=== PATIENT | female | born 1955 | race Caucasian/White ===

== ENCOUNTER 2016-10-05 22:37 | Inpatient (IN) | payer OTHER ==
[~2016-10-05] VITALS: Ht 165.1 cm; Wt 74.2 kg
[~2016-10-05 22:37] MED LIST: AMLO5TAB2 PO; CYCL10TA PO; LABE20TAB PO; VALS320T3 PO
[2016-10-05 22:55] LABS: ABG BASE EXCESS 4.4 (-2.0-2.0); ABG DEVICE NASAL CANN; ABG HCO3 37.9 MEQ/L (22.0-26.0); ABG PARTIAL PRESSURE CO2 113.8 mmHg (35.0-45.0); ABG PARTIAL PRESSURE O2 112.1 mmHg (75.0-100.0); ABG STANDARD HCO3 28.5 MEQ/L (22.0-26.0); ABG TOTAL CO2 41.4 MEQ/L (23.0-31.0)
[2016-10-05] MEDS ORDERED: IPRATROPIUM 0.5MG/ALBUTEROL 2.5MG INH SOL UD 3ML (DUONEB)(J7620) As Ordered ONE (23:00)
[2016-10-05] MEDS ORDERED: methylPREDNISolone INJ 125 MG/2 ML VIAL (J2930) As Ordered ONE (23:05)
[2016-10-05] MEDS ORDERED: LevoFLOXacin/DEXTROSE 750 MG/150 ML BAG (J1956) As Ordered ONE (23:06)
[2016-10-05 23:16] LABS: MEAN CORPUSCULAR HEMOGLOBIN 28.7 pg (27.0-33.0); MEAN CORPUSCULAR HGB CONC 30.6 g/dl (32.0-36.5); MEAN CORPUSCULAR VOLUME 93.6 fl (80.0-96.0); PLATELET COUNT, AUTOMATED 389 k/mm3 (150-450); WHITE BLOOD COUNT 16.6 K/mm3 (4.0-10.0)
[2016-10-05 23:20] LABS: BANDS 3 % (< 11)
[2016-10-05 23:21] LABS: HYPOCHROMASIA 2+
[2016-10-05 23:31] LABS: ANION GAP 2 MEQ/L (8-16); BLOOD UREA NITROGEN 7 MG/DL (7-18); CARBON DIOXIDE LEVEL 41 MEQ/L (21-32); CHLORIDE LEVEL 91 MEQ/L (98-107); GLOMERULAR FILTRATION RATE > 60.0 (>45); GLUCOSE, FASTING 186 MG/DL (80-110); POTASSIUM SERUM 4.1 MEQ/L (3.5-5.1); SODIUM LEVEL 134 MEQ/L (136-145)
[2016-10-05] MEDS ORDERED: MAGNESIUM SULFATE 1 GM/100 ML D5W BAG (10MG/ML) (J3475) As Ordered ONE (23:38)
[2016-10-06] VITALS (10 sets, daily range): BP systolic 105–142; BP diastolic 68–81; O2SAT 93–94
[2016-10-06] MEDS ORDERED: ALBU83IN INH (00:15)
[2016-10-06] MEDS ORDERED: AMLO10TA2 PO (00:15)
[2016-10-06] MEDS ORDERED: PLAV75TA38 PO (00:15)
[2016-10-06] MEDS ORDERED: ASPI81TA7 PO (00:15)
[2016-10-06] MEDS ORDERED: DIPH50CA29 PO (00:15)
[2016-10-06] MEDS ORDERED: ATOR1TAB21 PO (00:15)
[2016-10-06] MEDS ORDERED: METO-346 PO (00:15)
[2016-10-06] MEDS ORDERED: DULC5TAB PO (00:17)
[2016-10-06 00:24] LABS: ABG BASE EXCESS 10.5 (-2.0-2.0); ABG HCO3 43.7 MEQ/L (22.0-26.0); ABG PARTIAL PRESSURE O2 65.2 mmHg (75.0-100.0); ABG TOTAL CO2 47.3 MEQ/L (23.0-31.0)
[2016-10-06 00:26] LABS: ABG pH (ARTERIAL) 7.192 UNITS (7.350-7.450)
[2016-10-06 00:27] LABS: ABG PARTIAL PRESSURE CO2 116.5 mmHg (35.0-45.0)
[2016-10-06 01:42] LABS: ABG BASE EXCESS 7.9 (-2.0-2.0); ABG DEVICE NASAL CANN; ABG HCO3 40.3 MEQ/L (22.0-26.0); ABG PARTIAL PRESSURE CO2 105.8 mmHg (35.0-45.0); ABG PARTIAL PRESSURE O2 83.2 mmHg (75.0-100.0); ABG STANDARD HCO3 31.7 MEQ/L (22.0-26.0); ABG TOTAL CO2 43.6 MEQ/L (23.0-31.0); ABG pH (ARTERIAL) 7.199 UNITS (7.350-7.450)
[2016-10-06] MEDS ORDERED: ACETAMINOPHEN TAB 650MG DOSE (2X325MG) PO PRN (03:00)
[2016-10-06] MEDS ORDERED: ONDANSETRON 4MG/2ML VIAL (J2405) IV PRN (03:00)
[2016-10-06] MEDS ORDERED: IPRATROPIUM 0.5MG/ALBUTEROL 2.5MG INH SOL UD 3ML (DUONEB)(J7620) NEB PRN (03:00)
[2016-10-06] MEDS ORDERED: BISACODYL 5 MG TAB PO PRN (03:00)
--- NOTE | 2016-10-06 03:20 | EDDOCDS ---
Physician Documentation [facility] Name: Wilma Gaines Age: 61 yrs Sex: Female : 1955 Arrival Date: 10/05/2016 Time: 22:37 Bed 2 Private MD: Disposition: 10/06/16 02:05 Hospitalization ordered by Israel Ramirez for Inpatient Admission. Preliminary diagnosis are Acute respiratory failure with hypercapnia, Acute respiratory failure with hypoxia. - Bed requested for M ICU. - Status is Inpatient Admission. wilfred - Condition is Stable. - Problem is an acute exacerbation. - Symptoms have improved. Historical: - Allergies: No known drug Allergies; - Home Meds: 1. metoprolol tartrate 25 mg Oral tab 2. atorvastatin 20 mg oral tab 3. amlodipine 5 mg Oral tab 4. Plavix 75 mg Oral tab 5. benophen 6. aspirin 81 mg Oral tab 7. bisacodyl 5 mg Oral tab - PMHx: Hypertension; COPD; Hypercholesterolemia; - PSHx: none; - Social history: Smoking status: Patient uses tobacco products, current every day smoker. No barriers to communication noted, The patient speaks fluent Sinhala, Speaks appropriately for age. - Family history: Not pertinent. - : The pt / caregiver states he / she is not on anticoagulants. Home medication list is obtained from the patient. - Exposure Risk Screening:: None identified. Vital Signs: 10/05 22:42 BP 173 / 83 (auto/); ko2 22:43 Pulse 144 MON; Pulse Ox 96% ; ko2 22:48 BP 173 / 83; Pulse 145; Resp 26; Temp 100.4; Pulse Ox 96% on 2 lpm NC; Weight 77 kg / cln 169.76 lbs; Height 5 ft. 5 in. (165.10 cm); 22:55 BP 165 / 74 (auto/); ko2 22:55 Pulse 147 MON; Pulse Ox 92% ; ko2 22:59 Pulse 146 MON; Pulse Ox 90% ; ko2 23:00 BP 164 / 75 (auto/); ko2 23:15 BP 156 / 62 (auto/); ko2 23:16 Pulse 144 MON; Pulse Ox 94% ; ko2 23:30 BP 151 / 69 (auto/); ko2 23:30 Pulse 143 MON; Pulse Ox 93% ; ko2 10/06 00:00 BP 136 / 71 (auto/); ko2 00:01 Pulse 135 MON; Pulse Ox 94% ; ko2 00:10 BP 132 / 66 (auto/); ko2 00:10 Pulse 136 MON; Pulse Ox 91% ; ko2 00:25 BP 129 / 69 (auto/); ko2 00:26 Pulse 145 MON; Pulse Ox 92% ; ko2 00:40 BP 135 / 64 (auto/); ko2 00:41 Pulse 147 MON; Pulse Ox 95% ; ko2 00:55 BP 116 / 57 (auto/); ko2 00:56 Pulse 139 MON; Pulse Ox 95% ; ko2 01:10 BP 116 / 64 (auto/); ko2 01:11 Pulse 127 MON; Pulse Ox 96% ; ko2 01:25 BP 122 / 63 (auto/); ko2 01:25 Pulse 127 MON; Pulse Ox 92% ; ko2 01:40 BP 120 / 65 (auto/); ko2 01:40 Pulse 132 MON; Pulse Ox 95% ; ko2 01:55 BP 120 / 59 (auto/); ko2 01:56 Pulse 133 MON; Pulse Ox 94% ; ko2 02:10 BP 109 / 58 (auto/); ko2 02:10 Pulse 121 MON; Pulse Ox 93% ; ko2 02:25 BP 115 / 58 (auto/); ko2 02:26 Pulse 122 MON; Pulse Ox 92% ; ko2 02:40 BP 110 / 57 (auto/); ko2 02:41 Pulse 120 MON; Pulse Ox 93% ; ko2 02:55 BP 120 / 64 (auto/); ko2 02:55 Pulse 123 MON; Pulse Ox 93% ; ko2 10/05 22:48 Body Mass Index 28.25 (77.00 kg, 165.10 cm) cln MDM: 10/05 22:41 -Arterial Blood Gas Ordered. EDMS 22:41 Solu-MEDROL 125 mg IVP once ordered. mm11 22:41 -Blood Culture (Adults Only), peripheral from different site, or from device/port/PICC mm11 etc. if present ordered. 22:41 Manager Dialysis/Pulse Ox/q 15 min VS ordered. mm11 22:41 IV Saline Lock ordered. mm11 22:41 Oxygen at 4L/Min NC or Home dosage ordered. mm11 22:41 Rhythm Strip to chart ordered. mm11 22:43 B-Type Natiuretic Peptide Ordered. EDMS 22:43 Basic Metabolic Profile Ordered. EDMS 22:43 CBC with Diff Ordered. EDMS 22:43 Cardiac Injury Profile Ordered. EDMS 22:43 Troponin Ordered. EDMS 22:43 Lactic Acid (Sanderson tube on ice) Ordered. EDMS 22:43 -Blood Culture Ordered. EDMS 22:43 Chest, 1 View Ordered. EDMS 22:43 ECG WITH READING ER PHYS+CARDIAG ordered. EDMS 22:55 Albuterol-Ipratropium 1 neb Nebulizer every 20 minutes x3 ordered. jh6 23:00 -Arterial Blood Gas Reviewed. mm11 23:02 Ventilator settings as per RT ordered. mm11 23:03 BED REQUEST+ADM ordered. EDMS 23:03 levofloxacin 750 mg IVPB once over 90 mins ordered. mm11 23:03 -Blood Culture (Adults Only), peripheral from different site, or from device/port/PICC ml3 etc. if present complete. 23:04 BLOOD CULTURES Ordered. EDMS 23:04 BIPAP INPATIENT+RESP-VENT ordered. EDMS 23:10 Redraw ABG (put time in details section) ordered. mm11 23:16 Redraw ABG (put time in details section) complete. ml3 23:18 DIFFERENTIAL NO CHARGE Ordered. EDMS 23:18 ARTERIAL BLOOD GAS Ordered. EDMS 23:26 Magnesium Sulfate 1 grams IVPB once over 1 hrs; administer over at least 1 hour ordered.mm11 10/06 00:11 [facility] Payment Agreement was scanned into K[employer] and attached to record. jp5 00:11 Financial registration complete. jp5 00:36 -Arterial Blood Gas: \T\0130 Ordered. EDMS 00:44 B-Type Natiuretic Peptide Reviewed. mm11 00:44 Basic Metabolic Profile Reviewed. mm11 00:44 CBC with Diff Reviewed. mm11 00:44 ARTERIAL BLOOD GAS Reviewed. mm11 00:44 Cardiac Injury Profile Reviewed. mm11 00:44 Troponin Reviewed. mm11 00:44 Lactic Acid (Sanderson tube on ice) Reviewed. mm11 00:44 PLATELET ESTIMATE Reviewed. mm11 01:46 -Arterial Blood Gas: \T\0130 Reviewed. mm11 02:00 Misc Shell Trim Operator Order ordered. mm11 02:20 Misc Shell Trim Operator Order complete. ml3 02:47 RESPIRATORY PANEL Ordered. EDMS 02:57 ARTERIAL BLOOD GAS Ordered. EDMS 02:59 Admission / Observation Status ordered. EDMS 02:59 NPO DIET ordered. EDMS 02:59 SPUTUM CULTURE AND GRAM STAIN Ordered. EDMS 03:00 PORTABLE CHEST X-RAY Ordered. EDMS Administered Medications: 10/05 23:00 Drug: Albuterol-Ipratropium 1 neb [ipratropium-albuterol 0.5 mg-3 mg(2.5 mg base)/3 mL jh6 nebulization soln (1 neb)] Route: Nebulizer; 23:12 Drug: Solu-MEDROL 125 mg [Solu-Medrol 500 mg intravenous solution (125 mg)] Route: IVP; ko2 Site: right antecubital; 23:21 Drug: levofloxacin 750 mg [levofloxacin 750 mg/150 mL in 5 % dextrose intravenous ko2 piggyback] Route: IVPB; Infused Over: 90 mins; Site: right antecubital; 23:25 Drug: Albuterol-Ipratropium 1 neb [ipratropium-albuterol 0.5 mg-3 mg(2.5 mg base)/3 mL jh6 nebulization soln (1 neb)] Route: Nebulizer; 23:53 Drug: Albuterol-Ipratropium 1 neb [ipratropium-albuterol 0.5 mg-3 mg(2.5 mg base)/3 mL jh6 nebulization soln (1 neb)] Route: Nebulizer; 23:53 Drug: Magnesium Sulfate 1 grams [magnesium sulfate 1 gram/100 mL in dextrose 5 % ko2 intravenous piggyback] {Co-Signature: anni (Juaquin Suh RN).} Route: IVPB; Infused Over: 1 hrs; Site: left forearm; Signatures: Dispatcher [employer] EDMS Chacha Guillermo RN RN jan Lopresti, Mary-Elizabeth, Clinical Trial Coordinator Unit ml3 Peyton Bell RN RN [id number] Steve Ferrari DO DO mm11 Bob Oviedo jh6 Eryn Segura RN RN ko2 Ashvin Vazquez jp5 Juaquin hutton The chart was reviewed and I authenticate all verbal orders and agree with the evaluation and treatment provided.Corrections: (The following items were deleted from the chart) 10/06 02:56 02:23 RESPIRATORY PANEL ordered. EDMS EDMS Attachments: 00:11 [facility] Payment Agreement jp5 MTDD
--- NOTE | 2016-10-06 03:20 | EDDOCDS ---
Nurse's Notes [facility] Name: Wilma Gaines Age: 61 yrs Sex: Female : 1955 Arrival Date: 10/05/2016 Time: 22:37 Bed 2 Private MD: Diagnosis: Acute respiratory failure with hypercapnia;Acute respiratory failure with hypoxia Presentation: 10/05 22:42 Presenting complaint: EMS states: Increased shortness of breath over the last couple of ko2 hours. Pt was 75% on NRB when EMS arrived. Pt is now 92% after two albuterol trreatments. 23:23 Adult Sepsis Screening: The patient does not have new or worsening altered mentation. ko2 Patient has a respiratory rate of greater than or equal to 22 (1 point). Systolic blood pressure is greater than 100. Patient has a qSOFA score of 0- Negative Sepsis Screen. Suicide/Homicide risk assessment- the patient denies having any suicidal and/or homicidal ideations and does not present with any other emotional, behavioral or mental health complaints. Status: Patient is not a career placement services counselor or dependent. Transition of care: patient was not received from another setting of care. Care prior to arrival: See EMS report. Medications administered prior to arrival: Albuterol X2. 23:23 Acuity: JEFF Level 2 ko2 23:23 Method Of Arrival: Ambulance ko2 Triage Assessment: 23:00 General: Appears distressed. Pain: Denies pain. Pt Declines HIV testing. The patient is ko2 triaged at the bedside. See Assessment in Nurses Notes section of ED record. Neurological: Level of Consciousness is awake, alert. Cardiovascular: Heart tones S1 S2 present. Respiratory: Onset: The symptoms/episode began/occurred gradually. Respiratory: Airway is patent Respiratory effort is labored, Breath sounds are diminished bilaterally. Derm: Skin is pink, warm & dry. Historical: - Allergies: No known drug Allergies; - Home Meds: 1. metoprolol tartrate 25 mg Oral tab 2. atorvastatin 20 mg oral tab 3. amlodipine 5 mg Oral tab 4. Plavix 75 mg Oral tab 5. benophen 6. aspirin 81 mg Oral tab 7. bisacodyl 5 mg Oral tab - PMHx: Hypertension; COPD; Hypercholesterolemia; - PSHx: none; - Social history: Smoking status: Patient uses tobacco products, current every day smoker. No barriers to communication noted, The patient speaks fluent Taiwanese, Speaks appropriately for age. - Family history: Not pertinent. - : The pt / caregiver states he / she is not on anticoagulants. Home medication list is obtained from the patient. - Exposure Risk Screening:: None identified. Screenin:53 Screening information is obtained from the patient. Fall risk: No risks identified. ko2 Assistance ADL's: requires no assistance with activities of daily living. Abuse/DV Screen: The patient / caregiver reports he/she is: not in a situation that causes fear, pain or injury. Nutritional screening: No deficits noted. Advance Directives: Currently, there is no health care proxy. There is no active DNR order. There is no living will. There is no Power [employer]. home support is adequate. Assessment: 23:01 General: See triage assessment. ko2 23:52 General: Appears in no apparent distress, Behavior is appropriate for age, cooperative. ko2 Pain: Denies pain. Neurological: Level of Consciousness is awake, alert. Cardiovascular: Rhythm is sinus tachycardia No ectopy. Respiratory: Airway is patent Respiratory effort is even, labored. Derm: Skin is normal. 10/06 00:05 General: Appears ill, Behavior is appropriate for age, cooperative. Pain: Denies pain. ko2 Neurological: Level of Consciousness is awake, alert, lethargic. Cardiovascular: Rhythm is sinus tachycardia No ectopy. Respiratory: Airway is patent Respiratory effort is labored, Breath sounds with crackles bilaterally. Breath sounds are diminished bilaterally. Derm: Skin is normal. 00:49 General: Appears in no apparent distress, Behavior is appropriate for age, cooperative. ko2 Neurological: Level of Consciousness is awake, alert. Respiratory: Airway is patent. Derm: Skin is normal. 01:43 General: Appears in no apparent distress, Behavior is appropriate for age, cooperative. ko2 Pain: Denies pain. Neurological: Level of Consciousness is awake, alert. Respiratory: Airway is patent Respiratory effort is even, labored. Derm: Skin is normal. 03:00 General: Appears in no apparent distress, Behavior is appropriate for age, cooperative. ko2 Pain: Denies pain. Neurological: Level of Consciousness is awake, alert. Cardiovascular: Rhythm is sinus tachycardia. Respiratory: Airway is patent. Derm: Skin is normal. Vital Signs: 10/05 22:42 BP 173 / 83 (auto/); ko2 22:43 Pulse 144 MON; Pulse Ox 96% ; ko2 22:48 BP 173 / 83; Pulse 145; Resp 26; Temp 100.4; Pulse Ox 96% on 2 lpm NC; Weight 77 kg; cln Height 5 ft. 5 in. (165.10 cm); 22:55 BP 165 / 74 (auto/); ko2 22:55 Pulse 147 MON; Pulse Ox 92% ; ko2 22:59 Pulse 146 MON; Pulse Ox 90% ; ko2 23:00 BP 164 / 75 (auto/); ko2 23:15 BP 156 / 62 (auto/); ko2 23:16 Pulse 144 MON; Pulse Ox 94% ; ko2 23:30 BP 151 / 69 (auto/); ko2 23:30 Pulse 143 MON; Pulse Ox 93% ; ko2 10/06 00:00 BP 136 / 71 (auto/); ko2 00:01 Pulse 135 MON; Pulse Ox 94% ; ko2 00:10 BP 132 / 66 (auto/); ko2 00:10 Pulse 136 MON; Pulse Ox 91% ; ko2 00:25 BP 129 / 69 (auto/); ko2 00:26 Pulse 145 MON; Pulse Ox 92% ; ko2 00:40 BP 135 / 64 (auto/); ko2 00:41 Pulse 147 MON; Pulse Ox 95% ; ko2 00:55 BP 116 / 57 (auto/); ko2 00:56 Pulse 139 MON; Pulse Ox 95% ; ko2 01:10 BP 116 / 64 (auto/); ko2 01:11 Pulse 127 MON; Pulse Ox 96% ; ko2 01:25 BP 122 / 63 (auto/); ko2 01:25 Pulse 127 MON; Pulse Ox 92% ; ko2 01:40 BP 120 / 65 (auto/); ko2 01:40 Pulse 132 MON; Pulse Ox 95% ; ko2 01:55 BP 120 / 59 (auto/); ko2 01:56 Pulse 133 MON; Pulse Ox 94% ; ko2 02:10 BP 109 / 58 (auto/); ko2 02:10 Pulse 121 MON; Pulse Ox 93% ; ko2 02:25 BP 115 / 58 (auto/); ko2 02:26 Pulse 122 MON; Pulse Ox 92% ; ko2 02:40 BP 110 / 57 (auto/); ko2 02:41 Pulse 120 MON; Pulse Ox 93% ; ko2 02:55 BP 120 / 64 (auto/); ko2 02:55 Pulse 123 MON; Pulse Ox 93% ; ko2 10/05 22:48 Body Mass Index 28.25 (77.00 kg, 165.10 cm) cln Vitals: 01:44 Log In Time N/A - ambulance arrival. ko2 ED Course: 10/05 22:40 Patient visited by Dutch Wolff, Curator [employer]. ml3 22:40 rEyn Segura,RN is Primary Nurse. ml3 22:40 Steve Ferrari DO is Attending Physician. mm11 22:40 Patient visited by Steve Ferrari DO. mm11 22:40 Patient moved to Waiting ml3 22:40 Patient moved to 2 ml3 22:42 Patient visited by Steve Ferrari DO. mm11 22:42 EKG done. (by ED staff). Reviewed by Steve Ferrari DO. parish 22:48 Patient visited by Wendy Turner PCA. cln 22:48 Pt greeted and oriented to ED. Patient advised of names of staff involved in care, cln location of call thorpe, wait times and NPO status. Patient has correct armband on for positive identification. Placed in gown. Bed in low position. Call light in reach. Side rails up X 1. 22:49 -Arterial Blood Gas Sent. jh6 23:03 Inserted saline lock: 20 gauge in left antecubital area and blood collected. The ko2 patient tolerated the procedure well. 23:03 BIPAP: Inspiratory Pressure: 16, Expiratory Pressure: 6, FiO2: 40%, Full face fask. ko2 23:15 BLOOD CULTURES Sent. cln 23:24 Triage Initiated ko2 23:25 Patient visited by Steve Ferrari DO. mm11 10/06 00:08 Patient visited by Eryn Segura,JACKIE. ko2 00:11 [facility] Payment Agreement was scanned into Done In :60 Seconds and attached to record. jp5 00:26 ARTERIAL BLOOD GAS Sent. jh6 00:31 DIFFERENTIAL NO CHARGE Sent. ko2 00:32 BIPAP: Inspiratory Pressure: 20, Expiratory Pressure: 8, FiO2: 60%. ko2 01:09 Patient visited by Eryn Segura RN. ko2 01:43 -Arterial Blood Gas: \T\0130 Sent. jh6 01:44 The patient / caregiver is instructed regarding the plan of care and ED course. ko2 01:46 Patient visited by Steve Ferrari DO. mm11 02:04 Israel Ramirez DO is Hospitalizing Provider. mm11 03:06 No procedures done that require assistance. ko2 Administered Medications: 10/05 23:00 Drug: Albuterol-Ipratropium 1 neb [ipratropium-albuterol 0.5 mg-3 mg(2.5 mg base)/3 mL jh6 nebulization soln (1 neb)] Route: Nebulizer; 23:12 Drug: Solu-MEDROL 125 mg [Solu-Medrol 500 mg intravenous solution (125 mg)] Route: IVP; ko2 Site: right antecubital; 23:21 Drug: levofloxacin 750 mg [levofloxacin 750 mg/150 mL in 5 % dextrose intravenous ko2 piggyback] Route: IVPB; Infused Over: 90 mins; Site: right antecubital; 23:25 Drug: Albuterol-Ipratropium 1 neb [ipratropium-albuterol 0.5 mg-3 mg(2.5 mg base)/3 mL jh6 nebulization soln (1 neb)] Route: Nebulizer; 23:53 Drug: Albuterol-Ipratropium 1 neb [ipratropium-albuterol 0.5 mg-3 mg(2.5 mg base)/3 mL jh6 nebulization soln (1 neb)] Route: Nebulizer; 23:53 Drug: Magnesium Sulfate 1 grams [magnesium sulfate 1 gram/100 mL in dextrose 5 % ko2 intravenous piggyback] {Co-Signature: [id number] (Juaquin Suh RN).} Route: IVPB; Infused Over: 1 hrs; Site: left forearm; RT: 22:40 Respiratory: Airway is patent Respiratory effort is labored, Use of accessory muscles jh6 noted. shallow, Respiratory pattern is tachypnea Breath sounds are diminished in right upper lobe, left upper lobe, right middle lobe, left lower lobe, right lower lobe, left posterior upper lobe, right posterior upper lobe, left posterior lower lobe, right posterior middle lobe and right posterior lower lobe. 22:49 ABG's drawn from right radial artery pressure held for 5 minutes no bleeding noted jh6 pressure bandage applied specimen sent pt. tolerated well. 22:50 O2 via nasal cannula \T\ 4L/min. jh6 22:55 Respiratory: jh6 23:00 BIPAP: Inspiratory Pressure: 16, Expiratory Pressure: 6, Backup Rate: 8, FiO2: 40%, jh6 Full face fask. Respiratory: Airway is patent Respiratory effort is labored, Respiratory pattern is tachypnea Breath sounds are diminished in right upper lobe, left upper lobe, right middle lobe, left lower lobe, right lower lobe, left posterior upper lobe, right posterior upper lobe, left posterior lower lobe, right posterior middle lobe and right posterior lower lobe. 23:00 Initial Med Neb Given as ordered Patient was instructed and evaluated on procedure jh6 Patient tolerated procedure well without adverse effect. 23:12 Respiratory: Airway is patent Respiratory effort is labored, Respiratory pattern is jh6 regular tachypnea Breath sounds are diminished in right upper lobe, left upper lobe, right middle lobe, left lower lobe, right lower lobe, left posterior upper lobe, right posterior upper lobe, left posterior lower lobe, right posterior middle lobe and right posterior lower lobe. 23:25 Subsequent Med Neb Given as ordered Patient was reinforced on procedure Patient jh6 tolerated procedure well without adverse effect. Respiratory: Airway is patent Respiratory effort is labored, Respiratory pattern is regular tachypnea Breath sounds are diminished in right upper lobe, left upper lobe, right middle lobe, left lower lobe, right lower lobe, left posterior upper lobe, right posterior upper lobe, left posterior lower lobe, right posterior middle lobe and right posterior lower lobe. 23:35 Respiratory: Airway is patent Respiratory effort is even, labored, Respiratory pattern 6 is regular tachypnea Breath sounds are diminished in right upper lobe, left upper lobe, right middle lobe, left lower lobe, right lower lobe, left posterior upper lobe, right posterior upper lobe, left posterior lower lobe, right posterior middle lobe and right posterior lower lobe Breath sounds with wheezes in right upper lobe, left upper lobe and right middle lobe at expiration. 23:53 Respiratory: Airway is patent Respiratory effort is even, labored, Respiratory pattern 6 is regular tachypnea Breath sounds with crackles in right upper lobe, left upper lobe and right middle lobe Breath sounds are diminished in right upper lobe, left upper lobe, right middle lobe, left lower lobe and right lower lobe. 23:54 Subsequent Med Neb Given as ordered Patient was reinforced on procedure Patient jh6 tolerated procedure well without adverse effect. 10/06 00:04 Respiratory: Breath sounds with crackles in right upper lobe, left upper lobe and right jh6 middle lobe Breath sounds are diminished in right upper lobe, left upper lobe, right middle lobe, left lower lobe and right lower lobe. 00:20 ABG's drawn from right radial artery pressure held for 5 minutes no bleeding noted jh6 pressure bandage applied specimen sent pt. tolerated well. 00:33 BIPAP: Inspiratory Pressure: 20, Expiratory Pressure: 8, Backup Rate: 8, FiO2: 60%, 6 Full face fask. 01:38 ABG's drawn from right radial artery pressure held for 5 minutes no bleeding noted jh6 pressure bandage applied specimen sent pt. tolerated well. 02:08 BIPAP: Inspiratory Pressure: 20, Expiratory Pressure: 6, Backup Rate: 8, FiO2: 60%, jh6 Full face fask. Order Results: Lab Order: -Arterial Blood Gas; SPEC'M 10/05/16 22:46 Test: ABG pH (ARTERIAL); Value: 7.140; Range: 7.350-7.450; Abnormal: Critical Low; Units: UNITS; Status: F Test: ABG PARTIAL PRESSURE CO2; Value: 113.8; Range: 35.0-45.0; Abnormal: Above upper panic limits; Units: mmHg; Status: F Test: ABG PARTIAL PRESSURE O2; Value: 112.1; Range: 75.0-100.0; Abnormal: Above high normal; Units: mmHg; Status: F Test: ABG TOTAL CO2; Value: 41.4; Range: 23.0-31.0; Abnormal: Above high normal; Units: MEQ/L; Status: F Test: ABG HCO3; Value: 37.9; Range: 22.0-26.0; Abnormal: Above high normal; Units: MEQ/L; Status: F Test: ABG BASE EXCESS; Value: 4.4; Range: -2.0-2.0; Abnormal: Above high normal; Status: F Test: ABG STANDARD HCO3; Value: 28.5; Range: 22.0-26.0; Abnormal: Above high normal; Units: MEQ/L; Status: F Test: ABG O2 SATURATION; Value: 97.4; Range: 95.0-99.0; Units: %; Status: F Test: ABG DEVICE; Value: NASAL IKE; Status: F Lab Order: B-Type Natiuretic Peptide; SPEC'10/05/16 22:54 Test: BRAIN NATRIURETIC PEPTIDE; Value: 151; Range: <100; Abnormal: Above high normal; Units: PG/ML; Status: F Lab Order: Basic Metabolic Profile; SPEC'10/05/16 22:54 Test: GLUCOSE, FASTING; Value: 186; Range: 80-110; Abnormal: Above high normal; Units: MG/DL; Status: F Test: BLOOD UREA NITROGEN; Value: 7; Range: 7-18; Units: MG/DL; Status: F Test: CREATININE FOR GFR; Value: 0.70; Range: 0.55-1.02; Units: MG/DL; Status: F Test: GLOMERULAR FILTRATION RATE; Value: > 60.0; Range: >45; Status: F Test: SODIUM LEVEL; Value: 134; Range: 136-145; Abnormal: Below low normal; Units: MEQ/L; Status: F Test: POTASSIUM SERUM; Value: 4.1; Range: 3.5-5.1; Units: MEQ/L; Status: F Test: CHLORIDE LEVEL; Value: 91; Range: 98-107; Abnormal: Below low normal; Units: MEQ/L; Status: F Test: CARBON DIOXIDE LEVEL; Value: 41; Range: 21-32; Abnormal: Above high normal; Units: MEQ/L; Status: F Test: ANION GAP; Value: 2; Range: 8-16; Abnormal: Below low normal; Units: MEQ/L; Status: F Test: CALCIUM LEVEL; Value: 9.0; Range: 8.8-10.2; Units: MG/DL; Status: F Test Note: ; Units are mL/min/1.73 m2 Chronic Kidney Disease Staging per NKF: Stage I & II GFR >=60 Normal to Mildly Decreased Stage III GFR 30-59 Moderately Decreased Stage IV GFR 15-29 Severely Decreased Stage V GFR <15 Very Little GFR Left ESRD GFR <15 on DATA WAREHOUSE SPECIALIST Lab Order: CBC with Diff; SPEC10/05/16 22:54 Test: WHITE BLOOD COUNT; Value: 16.6; Range: 4.0-10.0; Abnormal: Above high normal; Units: K/mm3; Status: F Test: RED BLOOD COUNT; Value: 4.88; Range: 4.00-5.40; Units: M/mm3; Status: F Test: HEMOGLOBIN; Value: 14.0; Range: 12.0-16.0; Units: g/dl; Status: F Test: HEMATOCRIT; Value: 45.7; Range: 36.0-47.0; Units: %; Status: F Test: MEAN CORPUSCULAR VOLUME; Value: 93.6; Range: 80.0-96.0; Units: fl; Status: F Test: MEAN CORPUSCULAR HEMOGLOBIN; Value: 28.7; Range: 27.0-33.0; Units: pg; Status: F Test: MEAN CORPUSCULAR HGB CONC; Value: 30.6; Range: 32.0-36.5; Abnormal: Below low normal; Units: g/dl; Status: F Test: RED CELL DISTRIBUTION WIDTH; Value: 15.0; Range: 11.5-14.5; Abnormal: Above high normal; Units: %; Status: F Test: PLATELET COUNT, AUTOMATED; Value: 389; Range: 150-450; Units: k/mm3; Status: F Test: NEUTROPHILS; Value: 82; Range: 35-75; Abnormal: Above high normal; Units: %; Status: F Test: BANDS; Value: 3; Range: < 11; Units: %; Status: F Test: LYMPHOCYTES; Value: 6; Range: 16-52; Abnormal: Below low normal; Units: %; Status: F Test: MONOCYTES; Value: 9; Range: 0-8; Abnormal: Above high normal; Units: %; Status: F Test: RBC MORPHOLOGY; Value: NORMAL; Status: F Test: HYPOCHROMASIA; Value: 2+; Status: F Lab Order: Cardiac Injury Profile; SPEC'M 10/05/16 22:54 Test: CPK CREATINE PHOSPHOKINASE; Value: 28; Range: 26-192; Units: U/L; Status: F Test: CK-MB VALUE MASS; Value: 1.0; Range: 0.0-3.6; Units: NG/ML; Status: F Test: MB/CK RELATIVE INDEX; Value: 3.57; Range: < OR =4; Status: F Test Note: ; DIAGNOSIS CRITERIA MMB ng/ml Relative Index (RI) NON-AMI < or = 5 N/A [place] > 5 < or = 4 AMI > 5 > 4 Lab Order: Troponin; [facility] 10/05/16 22:54 Test: TROPONIN I; Value: < 0.02; Range: < 0.10; Units: NG/ML; Status: F Test Note: ; Troponin I Reference Interval for [facility] LOCI: 99th Percentile= 0.00-0.045 ng/ml Risk Stratification: <= 0.10 ng/ml Decreased Risk for Adverse Clinical Events. 0.10-1.50 ng/ml Increased Risk for Adverse Clinical Events. Evaluation of additional criterion and/or repeat testing in 2-6 hours is suggested to rule out myocardial damage. >= 1.50 ng/ml Indicative of Myocardial Injury. Lab Order: Lactic Acid (Sanderson tube on ice); [facility] 10/05/16 22:54 Test: LACTIC ACID SEPSIS PROTOCOL; Value: 0.6; Range: 0.4-2.0; Units: MMOL/L; Status: F Lab Order: PLATELET ESTIMATE; [facility] 10/05/16 22:54 Test: PLATELET ESTIMATE; Value: NORMAL; Range: NORMAL; Status: F Lab Order: ARTERIAL BLOOD GAS; [facility] 10/06/16 00:14 Test: ABG pH (ARTERIAL); Value: 7.192; Range: 7.350-7.450; Abnormal: Critical Low; Units: UNITS; Status: F Test: ABG PARTIAL PRESSURE CO2; Value: 116.5; Range: 35.0-45.0; Abnormal: Above upper panic limits; Units: mmHg; Status: F Test: ABG PARTIAL PRESSURE O2; Value: 65.2; Range: 75.0-100.0; Abnormal: Below low normal; Units: mmHg; Status: F Test: ABG TOTAL CO2; Value: 47.3; Range: 23.0-31.0; Abnormal: Above high normal; Units: MEQ/L; Status: F Test: ABG HCO3; Value: 43.7; Range: 22.0-26.0; Abnormal: Above high normal; Units: MEQ/L; Status: F Test: ABG BASE EXCESS; Value: 10.5; Range: -2.0-2.0; Abnormal: Above high normal; Status: F Test: ABG STANDARD HCO3; Value: 34.0; Range: 22.0-26.0; Abnormal: Above high normal; Units: MEQ/L; Status: F Test: ABG O2 SATURATION; Value: 89.4; Range: 95.0-99.0; Abnormal: Below low normal; Units: %; Status: F Lab Order: -Arterial Blood Gas: \T\0130; SPEC'M 10/06/16 01:32 Test: ABG pH (ARTERIAL); Value: 7.199; Range: 7.350-7.450; Abnormal: Critical Low; Units: UNITS; Status: F Test: ABG PARTIAL PRESSURE CO2; Value: 105.8; Range: 35.0-45.0; Abnormal: Above upper panic limits; Units: mmHg; Status: F Test: ABG PARTIAL PRESSURE O2; Value: 83.2; Range: 75.0-100.0; Units: mmHg; Status: F Test: ABG TOTAL CO2; Value: 43.6; Range: 23.0-31.0; Abnormal: Above high normal; Units: MEQ/L; Status: F Test: ABG HCO3; Value: 40.3; Range: 22.0-26.0; Abnormal: Above high normal; Units: MEQ/L; Status: F Test: ABG BASE EXCESS; Value: 7.9; Range: -2.0-2.0; Abnormal: Above high normal; Status: F Test: ABG STANDARD HCO3; Value: 31.7; Range: 22.0-26.0; Abnormal: Above high normal; Units: MEQ/L; Status: F Test: ABG O2 SATURATION; Value: 95.3; Range: 95.0-99.0; Units: %; Status: F Test: ABG DEVICE; Value: NASAL IKE; Status: F Outcome: 02:05 Decision to Hospitalize by Provider. mm11 03:05 Discharge Assessment: Patient awake, alert and oriented x 3. No cognitive and/or ko2 functional deficits noted. Patient verbalized understanding of disposition instructions. patient administered narcotics - no. The following High Risk Discharge criteria are identified: None. Admitted to ICU accompanied by nurse, accompanied by tech, via stretcher, with oxygen, on monitor, with chart. Condition: stable. No special radiology studies were completed. Admission hand-off: Report called to [facility]. Property :Personal belongings accompany Pt. 03:19 Patient left the ED. wilfred Signatures: Chacha Guillermo, RN RN wilfred New, Dutch, Curator [employer] [facility] ml3 Steve Ferrari, DO DO mm11 Leighann Shaw, INTERSTATE BUS DISPATCHER INTERSTATE BUS DISPATCHER parish Bob [place] jh6 Eryn Segura RN RN ko2 Price, Jennalee jp5 Wendy Turner, INTERSTATE BUS DISPATCHER INTERSTATE BUS DISPATCHER cln Juaquin [email or web address] Corrections: (The following items were deleted from the chart) 10/05 23:05 23:03 BIPAP: Inspiratory Pressure: 16, Expiratory Pressure: 6, Backup Rate: 8, FiO2: jh6 40%, Full face fask, jh6 23:05 23:03 Respiratory: Airway is patent Respiratory effort is labored, Respiratory pattern jh6 is tachypnea Breath sounds are diminished in right upper lobe, left upper lobe, right middle lobe, left lower lobe, right lower lobe, left posterior upper lobe, right posterior upper lobe, left posterior lower lobe, right posterior middle lobe and right posterior lower lobe jh6 MTDD
[2016-10-06 05:35] LABS: ABG HCO3 40.6 MEQ/L (22.0-26.0); ABG PARTIAL PRESSURE O2 80.7 mmHg (75.0-100.0); ABG STANDARD HCO3 32.8 MEQ/L (22.0-26.0); ABG TOTAL CO2 43.6 MEQ/L (23.0-31.0)
[2016-10-06 05:36] LABS: ABG PARTIAL PRESSURE CO2 97.1 mmHg (35.0-45.0); ABG pH (ARTERIAL) 7.239 UNITS (7.350-7.450)
--- NOTE | 2016-10-06 06:18 | ECGEPIP ---
Stationary ECG Study [facility] - ED Test Date: 2016-10-05 Pat Name: JAKE MOORE Department: Room: - Gender: F Geospatial Analyst: BorgesB: 1955 Requested By: RONAL Villegas Order Number: [id number] Reading MD: Adonis Pandey Measurements Intervals [place] Rate: 144 P: 79 SD: 164 QRS: 129 QRSD: 82 T: 60 QT: 251 QTc: 389 Interpretive Statements SINUS TACHYCARDIA POSSIBLE RIGHT VENTRICULAR HYPERTROPHY Electronically Signed On 10-06-2016 6:17:49 EST by Adonis Pandey
--- NOTE | 2016-10-06 07:06 | HPE ---
DATE OF ADMISSION: 10/06/2016 PRIMARY CARE PROVIDER: Denisa Gutierrez NP CODE STATUS: Full code. CHIEF COMPLAINT: Acute respiratory failure with shortness of breath requiring BiPAP in the emergency department. HISTORY OF PRESENT ILLNESS: Ms. Gaines is a 61-year-old female who presents to the emergency department increasing shortness of breath over the last few hours. Prior to presenting had called 911, emergency medical services (EMS) on the scene had given her albuterol treatments and when she presented to the emergency department she did have issues with continued desaturation. Arterial blood gas initially showed a pH of 7.140 with elevated pCO2 113.8, she was started on BiPAP. She was alert. She is able protect her airway. Recheck did show a pH of 7.192, pCO2 116.5, adjustments were made and her most recent shows a pH of 7.199, pCO2 of 105.8. The case was discussed with Dr. Rios over the phone. She did make some suggestions to the emergency room (ER) physician regarding further adjustments and did not feel that the patient required endotracheal intubation with mechanical ventilation, that she does seem to be improving, albeit slowly but that she could continue with noninvasive positive pressure ventilation (NIPPV) for the time being. Therefore the hospitalist was contacted for admission for this patient's chronic pulmonary obstructive disease (COPD) exacerbation with acute hypoxia with hypercarbia. She denies chest pain, denies nausea, vomiting, no abdominal pain. No back pain. The history was limited due to the patient having shortness of breath and on BiPAP, but she denied any sick contacts. PAST MEDICAL HISTORY: 1. Hypertension. 2. COPD. 3. Hyperlipidemia. PAST SURGICAL HISTORY: None. SOCIAL HISTORY: She uses tobacco which we encourage smoking cessation. No alcohol use. She is unsure of any sick contacts, no recent travel. FAMILY HISTORY: Noncontributory. ALLERGIES: NO KNOWN DRUG ALLERGIES. HOME MEDICATIONS: - metoprolol tartrate 25 mg daily - Lipitor 20 mg daily - amlodipine 5 mg daily - Plavix 75 mg daily - Banophen unknown dose - aspirin 81 mg daily - bisacodyl 5 mg daily Please note that the pharmacy will check for medicine reconciliation REVIEW OF SYSTEMS: CONSTITUTIONAL: She denies fevers, chills or rigors. No change in appetite. HEENT: No headache, lightheadedness, dizziness, blurry vision, double vision or tinnitus. PULMONARY: Increasing shortness of breath over the past few hours with wheeze, difficulty taking a deep breath and dyspnea. CARDIOVASCULAR: No paroxysmal nocturnal dyspnea (PND) , orthopnea. No substernal chest pain. No lower extremity edema. GASTROINTESTINAL (GI): No nausea, vomiting, diarrhea. Bowel movements have been regular. No hematochezia or melena. GENITOURINARY () : No dysuria, frequency or hematuria. MUSCULOSKELETAL: No bone loss or joint pain, swelling or erythema. NEUROLOGY: No paresthesias or paralysis. ENDOCRINE: Negative for diabetes. Negative for thyroid disorder. LYMPHATICS: No lumps, bumps, swelling neck, axilla or groin. No weight loss. No night sweats. HEMATOLOGY: Hematology negative for bleeding or bruising disorder. ONCOLOGY: No history of cancer. PSYCHIATRIC: No history of depression, anxiety or psychiatric abnormality. 10-point review of systems complete, pertinent positives are listed. PHYSICAL EXAMINATION: VITAL SIGNS: Temperature is 100.4, respiratory rate is 26, pulse 132 and regular, blood pressure (BP) is 120/65, SPO2 is 95% on room air. GENERAL: The patient appears to be in no acute distress. She is alert, oriented. HEENT: Unremarkable. LUNGS: Diminished bibasilar breath sounds, expiratory wheeze. HEART: Regular rate and rhythm albeit tachycardic. ABDOMEN: Abdomen is soft. EXTREMITIES: No edema. No calf tenderness. LABORATORY DATA: White count is 16.6, hemoglobin 14, platelets are 389,000. Sodium 134, potassium 4.1, chloride 91, bicarbonate 41, anion gap 2, BUN 7, creatinine 0.70, glucose is 186, lactic acid 0.6, CK 28, CK-MB 1.0, troponin is less than 0.02. Brain natriuretic peptide (BNP) is 151. Most recent arterial blood gas (ABG) shows pH 7.199, pCO2 105.8. This does appear to be trending better. Blood cultures times two are pending. IMPRESSION: Ms. Gaines is a 61-year-old female with chronic pulmonary obstructive disease (COPD) who presents to the emergency department with worsening shortness of breath, hypoxia and hypercarbia with respiratory failure currently on BiPAP and will need to be admitted to the intensive care unit (ICU) in further workup. PROBLEM LIST: 1. Acute hypoxic hypercarbic respiratory failure. 2. COPD. 3. Leukocytosis likely secondary to respiratory infection but not demonstrating any signs of sepsis currently 4. Chronic hyponatremia. 5. Hypertension. 6. Hyperlipidemia. 7. Plavix use. PLAN: The patient will be admitted to the ICU on BiPAP per Dr. Ruiz. Continue Solu-Medrol, Levaquin. Sputum culture, blood cultures, respiratory panel. Lactic acid was negative. No signs of sepsis currently. Continue with her home medications with hold parameters on blood pressure medications. Recheck labs in the morning Deep venous thrombosis (DVT) prophylaxis with Lovenox. DISPOSITION: She will be here greater than two midnights. PROGNOSIS: Currently guarded. If symptoms worsen, would repeat ABG we may need to consider intubation with mechanical ventilation. Repeat ABG within the next 2-3 hours. PROGNOSIS Currently guarded if symptoms should worsen with repeat EEG we may need to consider intubation with mechanical ventilation. Repeat EEG in the next to 3 hours.
--- NOTE | 2016-10-06 07:56 | REP ---
Clinical: Shortness of breath. Comparison: 10/05/2016. Findings: Mediastinum and cardiac silhouette are normal. Chronic interstitial changes noted. Subtle superimposed basilar atelectasis (left greater than right) and small left pleural effusion suggested. Impression: Bibasilar atelectasis (left greater than right) with small left pleural effusion. Signed by Hubert Johnson MD 10/06/2016 07:47 A
[2016-10-06] MEDS: IPRATROPIUM 0.5MG/ALBUTEROL 2.5MG INH SOL UD 3ML (DUONEB)(J7620) NEB SCH ×2 (07:59→15:34)
--- NOTE | 2016-10-06 07:59 | REP ---
Clinical: Cough. Comparison: 03/20/2016 . Findings: Chronic interstitial changes noted with bibasilar atelectasis (left greater than right) and small left pleural effusion. No pneumothorax. Mediastinum and cardiac silhouette stable. Skeletal structures intact. Impression: Bibasilar atelectasis (left greater than right) Small left pleural effusion. Signed by Hubert Johnson MD 10/06/2016 07:50 A
[2016-10-06] MEDS: ATORVASTATIN 20 MG TAB PO SCH (09:27)
[2016-10-06] MEDS: ASPIRIN 81 MG ENTERIC TAB PO SCH (09:27)
[2016-10-06] MEDS: DOCUSATE SODIUM 100 MG CAP PO SCH ×2 (09:27→21:15)
[2016-10-06] MEDS: CLOPIDOGREL 75 MG TAB PO SCH (09:28)
[2016-10-06] MEDS: amLODIPine 10 MG TAB PO SCH (09:28)
[2016-10-06] MEDS: ENOXAPARIN 40 MG/0.4 ML SYRINGE (J1650) SC SCH (09:29)
[2016-10-06] MEDS: METOPROLOL TART 12.5 MG PER 1/2 TAB PO SCH ×2 (09:29→21:15)
[2016-10-06] MEDS: methylPREDNISolone INJ 125 MG/2 ML VIAL (J2930) IV SCH ×2 (12:32→23:49)
[2016-10-06] MEDS: LevoFLOXacin IV 500 MG in APPROPRIATE DILUENT 1 EA IV SCH (23:49)
[2016-10-07] VITALS (10 sets, daily range): BP systolic 110–126; BP diastolic 62–71; O2SAT 91–98
[2016-10-07] MEDS: IPRATROPIUM 0.5MG/ALBUTEROL 2.5MG INH SOL UD 3ML (DUONEB)(J7620) NEB SCH ×4 (01:38→23:54)
[2016-10-07 05:14] LABS: MEAN CORPUSCULAR HEMOGLOBIN 29.4 pg (27.0-33.0); MEAN CORPUSCULAR HGB CONC 31.6 g/dl (32.0-36.5); MEAN CORPUSCULAR VOLUME 92.8 fl (80.0-96.0); RED CELL DISTRIBUTION WIDTH 14.7 % (11.5-14.5)
[2016-10-07 05:35] LABS: ALBUMIN 2.8 GM/DL (3.2-5.2); ANION GAP 4 MEQ/L (8-16); BLOOD UREA NITROGEN 15 MG/DL (7-18); CALCIUM LEVEL 9.5 MG/DL (8.8-10.2); CARBON DIOXIDE LEVEL 40 MEQ/L (21-32); CHLORIDE LEVEL 89 MEQ/L (98-107); GLOMERULAR FILTRATION RATE > 60.0 (>45); GLUCOSE, FASTING 183 MG/DL (80-110); PHOSPHORUS LEVEL 3.1 MG/DL (2.5-4.9); SODIUM LEVEL 133 MEQ/L (136-145)
[2016-10-07 08:06] LABS: ABG HCO3 37.3 MEQ/L (22.0-26.0); ABG PARTIAL PRESSURE O2 80.6 mmHg (75.0-100.0); ABG STANDARD HCO3 31.8 MEQ/L (22.0-26.0); ABG TOTAL CO2 39.7 MEQ/L (23.0-31.0); ABG pH (ARTERIAL) 7.303 UNITS (7.350-7.450)
[2016-10-07 08:10] LABS: ABG PARTIAL PRESSURE CO2 77.1 mmHg (35.0-45.0)
--- NOTE | 2016-10-07 08:45 | REP ---
Clinical: Shortness of breath. Comparison: 10/05/2016. Findings: Mediastinum and cardiac silhouette are stable and lung hoff demonstrate chronic interstitial changes subtle left lower lobe opacity and atelectasis may be minimally improved compared to prior examination. No pneumothorax. Skeletal structures intact. Impression: Left lower lobe opacity and atelectasis mildly improved. Signed by Hubert Johnson MD 10/07/2016 08:36 A
--- NOTE | 2016-10-07 08:57 | IPN ---
DATE: 10/06/2016 Ms. Gaines is wearing her BiPAP when I visit her in the morning. Noted over the course of day she is interactive and comfortable. PHYSICAL EXAMINATION: Temperature 98.2, pulse 105, respiratory rate 19, blood pressure 127/74, 97% on BiPAP at 60% FiO2. Intake and output notable for a positive fluid balance of 120. She is following commands, not particularly interested in my exam this morning, but is following simple commands and answering simple questions. Breathing symmetrically diminished. I:E ratio is 1:4. Heart has a regular rate and rhythm, tachycardic. ABDOMEN: Soft, doughy, nontender. LABORATORY DATA: Respiratory panel is negative. Gram-stain is pending. ASSESSMENT: This is a 61-year-old with chronic obstructive pulmonary disease (COPD), who presented with acute hypoxia and hypercapnia with respiratory failure on BiPAP. PLAN: 1. Acute hypoxic, hypercapnic respiratory failure on BiPAP. Steroids and empiric antibiotics. We will continue with aggressive pulmonary toilet. 2. Leukocytosis, most likely relate to acute bronchitis and perhaps demargination. Await culture results. Continue current antibiotics. 3. Chronic hyponatremia. 4. Hypertension. 5. Hyperlipidemia.
[2016-10-07] MEDS: METOPROLOL TART 12.5 MG PER 1/2 TAB PO SCH ×2 (09:43→21:11)
[2016-10-07] MEDS: amLODIPine 10 MG TAB PO SCH (09:43)
[2016-10-07] MEDS: ASPIRIN 81 MG ENTERIC TAB PO SCH (09:43)
[2016-10-07] MEDS: DOCUSATE SODIUM 100 MG CAP PO SCH ×2 (09:44→21:11)
[2016-10-07] MEDS: ENOXAPARIN 40 MG/0.4 ML SYRINGE (J1650) SC SCH (09:44)
[2016-10-07] MEDS: ATORVASTATIN 20 MG TAB PO SCH (09:44)
[2016-10-07] MEDS: CLOPIDOGREL 75 MG TAB PO SCH (09:44)
--- NOTE | 2016-10-07 10:08 | IPNPDOC ---
Subjective Date Seen The patient was seen on 10/07/16. Subjective Chief Complaint/HPI The patient is a 61-year-old female admitted with a reason for visit of Acute Respiratory Failure/Copd. General: Denies: Chills, Fatigue, Malaise, Night Sweats, Normal Appetite, Other Symptoms, ROS Unobtainable Constitutional: Denies: Chills, Fatigue, Fever, Lethargy, Malaise, Night Sweats , Other, Weakness, Weight Loss Eyes: Denies: Conjunctivae inflammation, Eyelid inflammation, Other, Pain, Redness, Vision change ENT: Denies: Dysphagia, Ear Pain, Epistaxis, Head Aches, Other Symptoms, Post Nasal Drip, Sinus Congestion, Sore Throat Skin: Denies: Breakdown, Bruising, Dry, Itching, Jaundice, Lesions, Nail Changes, Other, Rash Pulmonary: Reports: Cough, Denies: Dyspnea, Other Symptoms, Pleuritic Chest Pain Cardiovascular: Denies: Chest Pain, Edema, Lt Headedness, Orthopnea, Other Symptoms, Palpitations, Paroxysmal Noc. Dyspnea Gastrointestinal: Reports: Constipation, Denies: Abdominal Pain, Diarrhea, Hematochezia, Melena, Nausea, Other Symptoms, Vomiting Objective Physical Examination General Exam: Positive: Alert, Cooperative, No Acute Distress Eye Exam: Positive: Conjunctiva & lids normal, EOMI, PERRLA, Negative: Sclera icteric ENT Exam: Positive: Atraumatic, Mucous membr. moist/pink Neck Exam: Positive: Supple Chest Exam: Positive: Clear to auscultation, Diminished Heart Exam: Positive: Rate Normal, Regular Rhythm Telemetry: Positive: No significant arrhythmia Abdomen Exam: Positive: Normal bowel sounds, Soft, Negative: Tenderness Extremity Exam: Negative: Edema Assessment /Plan Problems (1) Acute respiratory failure Status: Acute Response to Treatment: Improving Discussed With: Patient Problem Specific Plan: Consult Specialist, Monitor Clinically Problem Text: Hypoxic, hypercapnic respiratory failure. ABG improved. Still requiring NIPPV intermittently yesterday and last night. Continue to wean O2. IV steroids, Levaquin, Duonebs. Add incentive spirometry, acapella. (2) COPD (chronic obstructive pulmonary disease) Status: Acute Response to Treatment: Improving Discussed With: Patient Problem Specific Plan: Monitor Clinically, Repeat Labs (3) Dyslipidemia Status: Chronic Problem Text: Continue Lipitor. (4) HTN (hypertension) Status: Chronic Problem Specific Plan: Monitor Clinically Problem Text: Continue norvasc, lopressor. (5) Hyponatremia Status: Chronic Discussed With: Patient Problem Specific Plan: Monitor Clinically, Repeat Labs Problem Text: Asymptomatic, continue to follow. Plan/VTE VTE Prophylaxis Ordered?: Yes (Lovenox) Plan Diet: Continue Current Activity: Continue Current Medications: Taper Steroids Respiratory: Wean Oxygen Diagnostics: Repeat Labs in AM Anticipated Discharge: Home VS, I&O, 24H, [facility] Vital Signs/I&O Vital Signs Date Time Temp Pulse Resp B/P Pulse Ox O2 Delivery O2 Flow Rate FiO2 10/07/16 06:00 90 20 92 Nasal Cannula 5.0 10/07/16 04:30 97.1 117/69 10/07/16 01:41 50 I&O- Last 24 Hours up to 6 AM 10/07/16 06:00 Intake Total 1000 ml Output Total 1350 ml Balance -350 ml Laboratory Data 24H LABS Laboratory Tests 2 10/07/16 04:51: Albumin 2.8L, Blood Urea Nitrogen 15#, Creatinine 0.70, Sodium Level 133L, Potassium Level 5.0#, Chloride Level 89L, Carbon Dioxide Level 40H, Anion Gap 4L , Calcium Level 9.5, Glomerular Filtration Rate > 60.0, Phosphorus Level 3.1 10/07/16 07:58: Arterial Blood pH 7.303L, Arterial Blood Partial Pressure CO2 77.1*H, Arterial Blood Partial Pressure O2 80.6, Arterial Blood Total CO2 39.7H, Arterial Blood HCO3 37.3H, Arterial Blood Base Excess 8.0H, Arterial Blood Oxygen Saturation 95.5, Blood Gas Bicarbonate Standard 31.8H CBC/BMP Laboratory Tests 10/07/16 04:51 Anion Gap 4 L, Red Blood Count 4.48, Mean Corpuscular Volume 92.8, Mean Corpuscular Hemoglobin 29.4, Mean Corpuscular Hemoglobin Concent 31.6 L, Red Cell Distribution Width 14.7 H Microbiology Microbiology 10/05/16 Blood Culture - Preliminary, Resulted No growth after 24 hours . All specim... 10/05/16 Blood Culture - Preliminary, Resulted No growth after 24 hours . All specim... 10/06/16 Gram Stain - Final, Resulted 10/06/16 Sputum Culture, Resulted Pending 10/06/16 Respiratory Virus Panel (PCR) ([facility]) - Final, Complete LALDIN,CHRISTIANA S. MD Oct 07, 2016 08:22
--- NOTE | 2016-10-07 13:12 | CCN ---
DATE: 10/07/2016 ATTENDING PHYSICIAN: Dr. Cruz CHIEF COMPLAINT: Progressive dyspnea. HISTORY OF PRESENT ILLNESS: Ms. Gaines is a 61-year-old female with past medical history significant for chronic obstructive pulmonary disease (COPD), chronic hypoxic respiratory failure requiring 2 liters nasal cannula, hypertension, hyperlipidemia, and chronic antiplatelet therapies who presented to the emergency department on October 06 with progressive dyspnea. She was found to be hypoxemic at that time. Initial arterial blood gas (ABG) showed pH of 7.14, pCO2 of 113.8, pO2 of 112 on nasal cannula. She was initiated on noninvasive positive pressure ventilation at that time and was admitted into the intensive care unit (ICU) for closer monitoring. Early this morning, she was taken off of noninvasive ventilation. Thereafter, her ABG was repeated, which showed a pH of 7.3, pCO2 of 77, pO2 of 81. Given her improvement in her blood gas, she remained off of noninvasive ventilation. This morning, patient reports that she is feeling better. Breathing is almost back to baseline. She does have a cough productive of green sputum, which is improved. She denies any chest pain or pressure. No wheezing. No headache, lightheadedness, or dizziness. No nausea, vomiting, abdominal pain, or diarrhea. She continues to be on 5 liters of nasal cannula with a baseline of 2 liters. She has been doing well off of noninvasive ventilation and will not need to be placed back it. Pulmonary consultation was requested in case the patient needs more aggressive therapy. PAST MEDICAL HISTORY 1. COPD. 2. Chronic hypoxic respiratory failure, requiring 2 liters nasal cannula all day. 3. Hypertension. 4. Hyperlipidemia. PAST SURGICAL HISTORY: None. ALLERGIES: No known drug allergies. SOCIAL HISTORY: The patient reports that she is a former smoker, quit in March 2016. Occasional alcohol. No illicit drugs. PHYSICAL EXAMINATION: VITAL SIGNS: Temperature 97.6, pulse 82, respiratory rate 22, blood pressure 124/67, pulse oximetry 95% on 5 liters nasal cannula. GENERAL: The patient is alert and oriented times three in no acute distress. HEENT: Normocephalic, atraumatic. Extraocular muscles are intact. Pupils are equally round and reactive to light. No scleral icterus. Moist mucosa. NECK: Supple. No cervical lymphadenopathy. No thyromegaly appreciated. HEART: Normal S1, S2. Regular rate and rhythm. No significant murmur appreciated. LUNGS: Diminished breath sounds bilaterally with bibasilar crackles. ABDOMEN: Soft, nontender, nondistended. Bowel sounds are present. EXTREMITIES: Trace right lower extremity edema. No cyanosis. Positive pedal pulses bilaterally. SKIN: Warm and dry. No rashes noted. NEUROLOGIC: No focal deficits. Cranial nerves: II-XII are grossly intact. Motor and sensation intact. LABORATORY DATA: WBC 14.0, hemoglobin 13.1, hematocrit 41.6, platelet count 380, MCV 92.8, MCH 29.4. Sodium 133, potassium 5.0, chloride 89, carbon dioxide 40, anion gap 4, BUN 15, creatinine 0.7, GFR greater than 60, fasting glucose 183, lactic acid 0.6 on October 05, calcium 9.5, phosphorus 3.1, albumin 2.8. Microbiology: Blood culture shows no growth after 24 hours. Respiratory virus panel was negative by PCR. Sputum culture pending. IMAGING STUDIES: Chest x-ray on admission was reviewed, which showed normal to mildly increased pulmonary vascular shadow, mildly flattened diaphragm, increased opacity of the left lower lobe. Chest x-ray done this morning was once again reviewed, which shows similar findings except for improved opacity in the left lower lobe. ASSESSMENT: 1. Acute hypoxic and hypercapnic respiratory failure. 2. Chronic obstructive pulmonary disease. 3. Hypertension. 4. Hyperlipidemia. PLAN: Her respiratory status has already improved, and she is no longer requiring noninvasive positive pressure ventilation. She does not appear that she will be requiring this any further, but we will continue to monitor her closely in case she decompensates. She is currently on supplemental oxygen, titrate to oxygenation of 88-92%. She is currently on Solu-Medrol as well as Levaquin for COPD exacerbation. Continue with bronchodilator therapy scheduled and as needed. She does have a leukocytosis, which has improved. Await sputum culture results. Blood cultures have shown no growth thus far. The respiratory panel was negative. Her vital signs are currently stable. No further recommendations at this time. Thank you for allowing us to participate in the care of Ms. Gaines. Please call if you have any further questions. My preceptor for this patient encounter was Dr. Scotty Medina. The preceptor was physically present in the building during the encounter and was fully available as needed. All aspects of the patient interview, examination, medical decision making process, and medical care plan development were reviewed and approved by the preceptor. The preceptor is aware and concurs with the plan as stated in the body of this note and will attest to such by his/her co-signature. [id number]
[2016-10-07] MEDS: methylPREDNISolone INJ 125 MG/2 ML VIAL (J2930) IV SCH (13:46)
[2016-10-07] MEDS ORDERED: SLF 3 ML SYR IV PRN (15:30)
[2016-10-07] MEDS: SLF 3 ML SYR IV SCH (21:11)
[2016-10-08] VITALS (7 sets, daily range): BP systolic 130–145; BP diastolic 76–79
[2016-10-08] MEDS: LevoFLOXacin IV 500 MG in APPROPRIATE DILUENT 1 EA IV SCH (00:18)
[2016-10-08] MEDS: methylPREDNISolone INJ 125 MG/2 ML VIAL (J2930) IV SCH ×2 (01:28→14:04)
--- NOTE | 2016-10-08 04:20 | EDDOCDS ---
Nurse's Notes [facility] Name: Wilma Gaines Age: 61 yrs Sex: Female : 1955 Arrival Date: 10/05/2016 Time: 22:37 Bed 2 Private MD: Diagnosis: Acute respiratory failure with hypercapnia;Acute respiratory failure with hypoxia Presentation: 10/05 22:42 Presenting complaint: EMS states: Increased shortness of breath over the last couple of ko2 hours. Pt was 75% on NRB when EMS arrived. Pt is now 92% after two albuterol trreatments. 23:23 Adult Sepsis Screening: The patient does not have new or worsening altered mentation. ko2 Patient has a respiratory rate of greater than or equal to 22 (1 point). Systolic blood pressure is greater than 100. Patient has a qSOFA score of 0- Negative Sepsis Screen. Suicide/Homicide risk assessment- the patient denies having any suicidal and/or homicidal ideations and does not present with any other emotional, behavioral or mental health complaints. Status: Patient is not a service order clerk or dependent. Transition of care: patient was not received from another setting of care. Care prior to arrival: See EMS report. Medications administered prior to arrival: Albuterol X2. 23:23 Acuity: JEFF Level 2 ko2 23:23 Method Of Arrival: Ambulance ko2 Triage Assessment: 23:00 General: Appears distressed. Pain: Denies pain. Pt Declines HIV testing. The patient is ko2 triaged at the bedside. See Assessment in Nurses Notes section of ED record. Neurological: Level of Consciousness is awake, alert. Cardiovascular: Heart tones S1 S2 present. Respiratory: Onset: The symptoms/episode began/occurred gradually. Respiratory: Airway is patent Respiratory effort is labored, Breath sounds are diminished bilaterally. Derm: Skin is pink, warm & dry. Historical: - Allergies: No known drug Allergies; - Home Meds: 1. metoprolol tartrate 25 mg Oral tab 2. atorvastatin 20 mg oral tab 3. amlodipine 5 mg Oral tab 4. Plavix 75 mg Oral tab 5. benophen 6. aspirin 81 mg Oral tab 7. bisacodyl 5 mg Oral tab - PMHx: Hypertension; COPD; Hypercholesterolemia; - PSHx: none; - Social history: Smoking status: Patient uses tobacco products, current every day smoker. No barriers to communication noted, The patient speaks fluent [place], Speaks appropriately for age. - Family history: Not pertinent. - : The pt / caregiver states he / she is not on anticoagulants. Home medication list is obtained from the patient. - Exposure Risk Screening:: None identified. Screenin:53 Screening information is obtained from the patient. Fall risk: No risks identified. ko2 Assistance ADL's: requires no assistance with activities of daily living. Abuse/DV Screen: The patient / caregiver reports he/she is: not in a situation that causes fear, pain or injury. Nutritional screening: No deficits noted. Advance Directives: Currently, there is no health care proxy. There is no active DNR order. There is no living will. There is no Power of Ingot Buggy Operator. home support is adequate. Assessment: 23:01 General: See triage assessment. ko2 23:52 General: Appears in no apparent distress, Behavior is appropriate for age, cooperative. ko2 Pain: Denies pain. Neurological: Level of Consciousness is awake, alert. Cardiovascular: Rhythm is sinus tachycardia No ectopy. Respiratory: Airway is patent Respiratory effort is even, labored. Derm: Skin is normal. 10/06 00:05 General: Appears ill, Behavior is appropriate for age, cooperative. Pain: Denies pain. ko2 Neurological: Level of Consciousness is awake, alert, lethargic. Cardiovascular: Rhythm is sinus tachycardia No ectopy. Respiratory: Airway is patent Respiratory effort is labored, Breath sounds with crackles bilaterally. Breath sounds are diminished bilaterally. Derm: Skin is normal. 00:49 General: Appears in no apparent distress, Behavior is appropriate for age, cooperative. ko2 Neurological: Level of Consciousness is awake, alert. Respiratory: Airway is patent. Derm: Skin is normal. 01:43 General: Appears in no apparent distress, Behavior is appropriate for age, cooperative. ko2 Pain: Denies pain. Neurological: Level of Consciousness is awake, alert. Respiratory: Airway is patent Respiratory effort is even, labored. Derm: Skin is normal. 03:00 General: Appears in no apparent distress, Behavior is appropriate for age, cooperative. ko2 Pain: Denies pain. Neurological: Level of Consciousness is awake, alert. Cardiovascular: Rhythm is sinus tachycardia. Respiratory: Airway is patent. Derm: Skin is normal. Vital Signs: 10/05 22:42 BP 173 / 83 (auto/); ko2 22:43 Pulse 144 MON; Pulse Ox 96% ; ko2 22:48 BP 173 / 83; Pulse 145; Resp 26; Temp 100.4; Pulse Ox 96% on 2 lpm NC; Weight 77 kg; cln Height 5 ft. 5 in. (165.10 cm); 22:55 BP 165 / 74 (auto/); ko2 22:55 Pulse 147 MON; Pulse Ox 92% ; ko2 22:59 Pulse 146 MON; Pulse Ox 90% ; ko2 23:00 BP 164 / 75 (auto/); ko2 23:15 BP 156 / 62 (auto/); ko2 23:16 Pulse 144 MON; Pulse Ox 94% ; ko2 23:30 BP 151 / 69 (auto/); ko2 23:30 Pulse 143 MON; Pulse Ox 93% ; ko2 10/06 00:00 BP 136 / 71 (auto/); ko2 00:01 Pulse 135 MON; Pulse Ox 94% ; ko2 00:10 BP 132 / 66 (auto/); ko2 00:10 Pulse 136 MON; Pulse Ox 91% ; ko2 00:25 BP 129 / 69 (auto/); ko2 00:26 Pulse 145 MON; Pulse Ox 92% ; ko2 00:40 BP 135 / 64 (auto/); ko2 00:41 Pulse 147 MON; Pulse Ox 95% ; ko2 00:55 BP 116 / 57 (auto/); ko2 00:56 Pulse 139 MON; Pulse Ox 95% ; ko2 01:10 BP 116 / 64 (auto/); ko2 01:11 Pulse 127 MON; Pulse Ox 96% ; ko2 01:25 BP 122 / 63 (auto/); ko2 01:25 Pulse 127 MON; Pulse Ox 92% ; ko2 01:40 BP 120 / 65 (auto/); ko2 01:40 Pulse 132 MON; Pulse Ox 95% ; ko2 01:55 BP 120 / 59 (auto/); ko2 01:56 Pulse 133 MON; Pulse Ox 94% ; ko2 02:10 BP 109 / 58 (auto/); ko2 02:10 Pulse 121 MON; Pulse Ox 93% ; ko2 02:25 BP 115 / 58 (auto/); ko2 02:26 Pulse 122 MON; Pulse Ox 92% ; ko2 02:40 BP 110 / 57 (auto/); ko2 02:41 Pulse 120 MON; Pulse Ox 93% ; ko2 02:55 BP 120 / 64 (auto/); ko2 02:55 Pulse 123 MON; Pulse Ox 93% ; ko2 10/05 22:48 Body Mass Index 28.25 (77.00 kg, 165.10 cm) cln Vitals: 01:44 Log In Time N/A - ambulance arrival. ko2 ED Course: 10/05 22:40 Patient visited by Dutch Wolff, Chainstitch Hemmer. ml3 22:40 Eryn Segura,RN is Primary Nurse. ml3 22:40 Steve Ferrari DO is Attending Physician. mm11 22:40 Patient visited by Steve Ferrari DO. mm11 22:40 Patient moved to Waiting ml3 22:40 Patient moved to 2 ml3 22:42 Patient visited by Steve Ferrari DO. mm11 22:42 EKG done. (by ED staff). Reviewed by Steve Ferrari DO. parish 22:48 Patient visited by Wendy Turner PCA. cln 22:48 Pt greeted and oriented to ED. Patient advised of names of staff involved in care, cln location of call thorpe, wait times and NPO status. Patient has correct armband on for positive identification. Placed in gown. Bed in low position. Call light in reach. Side rails up X 1. 22:49 -Arterial Blood Gas Sent. jh6 23:03 Inserted saline lock: 20 gauge in left antecubital area and blood collected. The ko2 patient tolerated the procedure well. 23:03 BIPAP: Inspiratory Pressure: 16, Expiratory Pressure: 6, FiO2: 40%, Full face fask. ko2 23:15 BLOOD CULTURES Sent. cln 23:24 Triage Initiated ko2 23:25 Patient visited by Steve Ferrari DO. mm11 10/06 00:08 Patient visited by Eryn Segura,JACKIE. ko2 00:11 [facility] Payment Agreement was scanned into [employer] and attached to record. jp5 00:26 ARTERIAL BLOOD GAS Sent. jh6 00:31 DIFFERENTIAL NO CHARGE Sent. ko2 00:32 BIPAP: Inspiratory Pressure: 20, Expiratory Pressure: 8, FiO2: 60%. ko2 01:09 Patient visited by Eryn Segura RN. ko2 01:43 -Arterial Blood Gas: \T\0130 Sent. jh6 01:44 The patient / caregiver is instructed regarding the plan of care and ED course. ko2 01:46 Patient visited by Steve Ferrari DO. mm11 02:04 Israel Ramirez DO is Hospitalizing Provider. mm11 03:06 No procedures done that require assistance. ko2 11:46 T-Sheet-- Draft Copy was scanned into [employer] and attached to record. gb Administered Medications: 10/05 23:00 Drug: Albuterol-Ipratropium 1 neb [ipratropium-albuterol 0.5 mg-3 mg(2.5 mg base)/3 mL jh6 nebulization soln (1 neb)] Route: Nebulizer; 23:12 Drug: Solu-MEDROL 125 mg [Solu-Medrol 500 mg intravenous solution (125 mg)] Route: IVP; ko2 Site: right antecubital; 23:21 Drug: levofloxacin 750 mg [levofloxacin 750 mg/150 mL in 5 % dextrose intravenous ko2 piggyback] Route: IVPB; Infused Over: 90 mins; Site: right antecubital; 23:25 Drug: Albuterol-Ipratropium 1 neb [ipratropium-albuterol 0.5 mg-3 mg(2.5 mg base)/3 mL jh6 nebulization soln (1 neb)] Route: Nebulizer; 23:53 Drug: Albuterol-Ipratropium 1 neb [ipratropium-albuterol 0.5 mg-3 mg(2.5 mg base)/3 mL jh6 nebulization soln (1 neb)] Route: Nebulizer; 23:53 Drug: Magnesium Sulfate 1 grams [magnesium sulfate 1 gram/100 mL in dextrose 5 % ko2 intravenous piggyback] {Co-Signature: mb9 (Juaquin Suh RN).} Route: IVPB; Infused Over: 1 hrs; Site: left forearm; RT: 22:40 Respiratory: Airway is patent Respiratory effort is labored, Use of accessory muscles jh6 noted. shallow, Respiratory pattern is tachypnea Breath sounds are diminished in right upper lobe, left upper lobe, right middle lobe, left lower lobe, right lower lobe, left posterior upper lobe, right posterior upper lobe, left posterior lower lobe, right posterior middle lobe and right posterior lower lobe. 22:49 ABG's drawn from right radial artery pressure held for 5 minutes no bleeding noted jh6 pressure bandage applied specimen sent pt. tolerated well. 22:50 O2 via nasal cannula \T\ 4L/min. jh6 22:55 Respiratory: 6 23:00 BIPAP: Inspiratory Pressure: 16, Expiratory Pressure: 6, Backup Rate: 8, FiO2: 40%, jh6 Full face fask. Respiratory: Airway is patent Respiratory effort is labored, Respiratory pattern is tachypnea Breath sounds are diminished in right upper lobe, left upper lobe, right middle lobe, left lower lobe, right lower lobe, left posterior upper lobe, right posterior upper lobe, left posterior lower lobe, right posterior middle lobe and right posterior lower lobe. 23:00 Initial Med Neb Given as ordered Patient was instructed and evaluated on procedure jh6 Patient tolerated procedure well without adverse effect. 23:12 Respiratory: Airway is patent Respiratory effort is labored, Respiratory pattern is 6 regular tachypnea Breath sounds are diminished in right upper lobe, left upper lobe, right middle lobe, left lower lobe, right lower lobe, left posterior upper lobe, right posterior upper lobe, left posterior lower lobe, right posterior middle lobe and right posterior lower lobe. 23:25 Subsequent Med Neb Given as ordered Patient was reinforced on procedure Patient jh6 tolerated procedure well without adverse effect. Respiratory: Airway is patent Respiratory effort is labored, Respiratory pattern is regular tachypnea Breath sounds are diminished in right upper lobe, left upper lobe, right middle lobe, left lower lobe, right lower lobe, left posterior upper lobe, right posterior upper lobe, left posterior lower lobe, right posterior middle lobe and right posterior lower lobe. 23:35 Respiratory: Airway is patent Respiratory effort is even, labored, Respiratory pattern 6 is regular tachypnea Breath sounds are diminished in right upper lobe, left upper lobe, right middle lobe, left lower lobe, right lower lobe, left posterior upper lobe, right posterior upper lobe, left posterior lower lobe, right posterior middle lobe and right posterior lower lobe Breath sounds with wheezes in right upper lobe, left upper lobe and right middle lobe at expiration. 23:53 Respiratory: Airway is patent Respiratory effort is even, labored, Respiratory pattern 6 is regular tachypnea Breath sounds with crackles in right upper lobe, left upper lobe and right middle lobe Breath sounds are diminished in right upper lobe, left upper lobe, right middle lobe, left lower lobe and right lower lobe. 23:54 Subsequent Med Neb Given as ordered Patient was reinforced on procedure Patient jh6 tolerated procedure well without adverse effect. 10/06 00:04 Respiratory: Breath sounds with crackles in right upper lobe, left upper lobe and right jh6 middle lobe Breath sounds are diminished in right upper lobe, left upper lobe, right middle lobe, left lower lobe and right lower lobe. 00:20 ABG's drawn from right radial artery pressure held for 5 minutes no bleeding noted jh6 pressure bandage applied specimen sent pt. tolerated well. 00:33 BIPAP: Inspiratory Pressure: 20, Expiratory Pressure: 8, Backup Rate: 8, FiO2: 60%, [facility] Full face fask. 01:38 ABG's drawn from right radial artery pressure held for 5 minutes no bleeding noted jh6 pressure bandage applied specimen sent pt. tolerated well. 02:08 BIPAP: Inspiratory Pressure: 20, Expiratory Pressure: 6, Backup Rate: 8, FiO2: 60%, [facility] Full face fask. Order Results: Lab Order: -Arterial Blood Gas; SPEC'M 10/05/16 22:46 Test: ABG pH (ARTERIAL); Value: 7.140; Range: 7.350-7.450; Abnormal: Critical Low; Units: UNITS; Status: F Test: ABG PARTIAL PRESSURE CO2; Value: 113.8; Range: 35.0-45.0; Abnormal: Above upper panic limits; Units: mmHg; Status: F Test: ABG PARTIAL PRESSURE O2; Value: 112.1; Range: 75.0-100.0; Abnormal: Above high normal; Units: mmHg; Status: F Test: ABG TOTAL CO2; Value: 41.4; Range: 23.0-31.0; Abnormal: Above high normal; Units: MEQ/L; Status: F Test: ABG HCO3; Value: 37.9; Range: 22.0-26.0; Abnormal: Above high normal; Units: MEQ/L; Status: F Test: ABG BASE EXCESS; Value: 4.4; Range: -2.0-2.0; Abnormal: Above high normal; Status: F Test: ABG STANDARD HCO3; Value: 28.5; Range: 22.0-26.0; Abnormal: Above high normal; Units: MEQ/L; Status: F Test: ABG O2 SATURATION; Value: 97.4; Range: 95.0-99.0; Units: %; Status: F Test: ABG DEVICE; Value: NASAL IKE; Status: F Lab Order: B-Type Natiuretic Peptide; SPEC'M 10/05/16 22:54 Test: BRAIN NATRIURETIC PEPTIDE; Value: 151; Range: <100; Abnormal: Above high normal; Units: PG/ML; Status: F Lab Order: Basic Metabolic Profile; SPEC'M 10/05/16 22:54 Test: GLUCOSE, FASTING; Value: 186; Range: 80-110; Abnormal: Above high normal; Units: MG/DL; Status: F Test: BLOOD UREA NITROGEN; Value: 7; Range: 7-18; Units: MG/DL; Status: F Test: CREATININE FOR GFR; Value: 0.70; Range: 0.55-1.02; Units: MG/DL; Status: F Test: GLOMERULAR FILTRATION RATE; Value: > 60.0; Range: >45; Status: F Test: SODIUM LEVEL; Value: 134; Range: 136-145; Abnormal: Below low normal; Units: MEQ/L; Status: F Test: POTASSIUM SERUM; Value: 4.1; Range: 3.5-5.1; Units: MEQ/L; Status: F Test: CHLORIDE LEVEL; Value: 91; Range: 98-107; Abnormal: Below low normal; Units: MEQ/L; Status: F Test: CARBON DIOXIDE LEVEL; Value: 41; Range: 21-32; Abnormal: Above high normal; Units: MEQ/L; Status: F Test: ANION GAP; Value: 2; Range: 8-16; Abnormal: Below low normal; Units: MEQ/L; Status: F Test: CALCIUM LEVEL; Value: 9.0; Range: 8.8-10.2; Units: MG/DL; Status: F Test Note: ; Units are mL/min/1.73 m2 Chronic Kidney Disease Staging per NKF: Stage I & II GFR >=60 Normal to Mildly Decreased Stage III GFR 30-59 Moderately Decreased Stage IV GFR 15-29 Severely Decreased Stage V GFR <15 Very Little GFR Left ESRD GFR <15 on CAN PUSHER Lab Order: CBC with Diff; SPEC'M 10/05/16 22:54 Test: WHITE BLOOD COUNT; Value: 16.6; Range: 4.0-10.0; Abnormal: Above high normal; Units: K/mm3; Status: F Test: RED BLOOD COUNT; Value: 4.88; Range: 4.00-5.40; Units: M/mm3; Status: F Test: HEMOGLOBIN; Value: 14.0; Range: 12.0-16.0; Units: g/dl; Status: F Test: HEMATOCRIT; Value: 45.7; Range: 36.0-47.0; Units: %; Status: F Test: MEAN CORPUSCULAR VOLUME; Value: 93.6; Range: 80.0-96.0; Units: fl; Status: F Test: MEAN CORPUSCULAR HEMOGLOBIN; Value: 28.7; Range: 27.0-33.0; Units: pg; Status: F Test: MEAN CORPUSCULAR HGB CONC; Value: 30.6; Range: 32.0-36.5; Abnormal: Below low normal; Units: g/dl; Status: F Test: RED CELL DISTRIBUTION WIDTH; Value: 15.0; Range: 11.5-14.5; Abnormal: Above high normal; Units: %; Status: F Test: PLATELET COUNT, AUTOMATED; Value: 389; Range: 150-450; Units: k/mm3; Status: F Test: NEUTROPHILS; Value: 82; Range: 35-75; Abnormal: Above high normal; Units: %; Status: F Test: BANDS; Value: 3; Range: < 11; Units: %; Status: F Test: LYMPHOCYTES; Value: 6; Range: 16-52; Abnormal: Below low normal; Units: %; Status: F Test: MONOCYTES; Value: 9; Range: 0-8; Abnormal: Above high normal; Units: %; Status: F Test: RBC MORPHOLOGY; Value: NORMAL; Status: F Test: HYPOCHROMASIA; Value: 2+; Status: F Lab Order: Cardiac Injury Profile; [facility] 10/05/16 22:54 Test: CPK CREATINE PHOSPHOKINASE; Value: 28; Range: 26-192; Units: U/L; Status: F Test: CK-MB VALUE MASS; Value: 1.0; Range: 0.0-3.6; Units: NG/ML; Status: F Test: MB/CK RELATIVE INDEX; Value: 3.57; Range: < OR =4; Status: F Test Note: ; DIAGNOSIS CRITERIA MMB ng/ml Relative Index (RI) NON-AMI < or = 5 N/A [place] > 5 < or = 4 AMI > 5 > 4 Lab Order: Troponin; [facility] 10/05/16 22:54 Test: TROPONIN I; Value: < 0.02; Range: < 0.10; Units: NG/ML; Status: F Test Note: ; Troponin I Reference Interval for [employer] LOCI: 99th Percentile= 0.00-0.045 ng/ml Risk Stratification: <= 0.10 ng/ml Decreased Risk for Adverse Clinical Events. 0.10-1.50 ng/ml Increased Risk for Adverse Clinical Events. Evaluation of additional criterion and/or repeat testing in 2-6 hours is suggested to rule out myocardial damage. >= 1.50 ng/ml Indicative of Myocardial Injury. Lab Order: Lactic Acid (Sanderson tube on ice); [facility] 10/05/16 22:54 Test: LACTIC ACID SEPSIS PROTOCOL; Value: 0.6; Range: 0.4-2.0; Units: MMOL/L; Status: F Lab Order: PLATELET ESTIMATE; [facility] 10/05/16 22:54 Test: PLATELET ESTIMATE; Value: NORMAL; Range: NORMAL; Status: F Lab Order: ARTERIAL BLOOD GAS; [facility] 10/06/16 00:14 Test: ABG pH (ARTERIAL); Value: 7.192; Range: 7.350-7.450; Abnormal: Critical Low; Units: UNITS; Status: F Test: ABG PARTIAL PRESSURE CO2; Value: 116.5; Range: 35.0-45.0; Abnormal: Above upper panic limits; Units: mmHg; Status: F Test: ABG PARTIAL PRESSURE O2; Value: 65.2; Range: 75.0-100.0; Abnormal: Below low normal; Units: mmHg; Status: F Test: ABG TOTAL CO2; Value: 47.3; Range: 23.0-31.0; Abnormal: Above high normal; Units: MEQ/L; Status: F Test: ABG HCO3; Value: 43.7; Range: 22.0-26.0; Abnormal: Above high normal; Units: MEQ/L; Status: F Test: ABG BASE EXCESS; Value: 10.5; Range: -2.0-2.0; Abnormal: Above high normal; Status: F Test: ABG STANDARD HCO3; Value: 34.0; Range: 22.0-26.0; Abnormal: Above high normal; Units: MEQ/L; Status: F Test: ABG O2 SATURATION; Value: 89.4; Range: 95.0-99.0; Abnormal: Below low normal; Units: %; Status: F Lab Order: -Arterial Blood Gas: \T\0130; SPEC'M 10/06/16 01:32 Test: ABG pH (ARTERIAL); Value: 7.199; Range: 7.350-7.450; Abnormal: Critical Low; Units: UNITS; Status: F Test: ABG PARTIAL PRESSURE CO2; Value: 105.8; Range: 35.0-45.0; Abnormal: Above upper panic limits; Units: mmHg; Status: F Test: ABG PARTIAL PRESSURE O2; Value: 83.2; Range: 75.0-100.0; Units: mmHg; Status: F Test: ABG TOTAL CO2; Value: 43.6; Range: 23.0-31.0; Abnormal: Above high normal; Units: MEQ/L; Status: F Test: ABG HCO3; Value: 40.3; Range: 22.0-26.0; Abnormal: Above high normal; Units: MEQ/L; Status: F Test: ABG BASE EXCESS; Value: 7.9; Range: -2.0-2.0; Abnormal: Above high normal; Status: F Test: ABG STANDARD HCO3; Value: 31.7; Range: 22.0-26.0; Abnormal: Above high normal; Units: MEQ/L; Status: F Test: ABG O2 SATURATION; Value: 95.3; Range: 95.0-99.0; Units: %; Status: F Test: ABG DEVICE; Value: NASAL IKE; Status: F Outcome: 02:05 Decision to Hospitalize by Provider. mm11 03:05 Discharge Assessment: Patient awake, alert and oriented x 3. No cognitive and/or ko2 functional deficits noted. Patient verbalized understanding of disposition instructions. patient administered narcotics - no. The following High Risk Discharge criteria are identified: None. Admitted to ICU accompanied by nurse, accompanied by tech, via stretcher, with oxygen, on monitor, with chart. Condition: stable. No special radiology studies were completed. Admission hand-off: Report called to [facility]. Property :Personal belongings accompany Pt. 03:19 Patient left the ED. wilfred Signatures: Chacha Guillermo RN RN wilfred Jose Elias, Angi, Reg Reg gb New, SabrinaAlondra, Chainstitch Hemmer Unit ml3 Steve Ferrari, DO DO mm11 Leighann Shaw, PRINCIPAL MILITARY ANALYST PRINCIPAL MILITARY ANALYST Bob Regan jh6 Eryn Segura RN RN ko2 Ashvin Vazquez jp5 Wendy Turner, PRINCIPAL MILITARY ANALYST PRINCIPAL MILITARY ANALYST cln Juaquin Suh RN mb9 Corrections: (The following items were deleted from the chart) 10/05 23:05 23:03 BIPAP: Inspiratory Pressure: 16, Expiratory Pressure: 6, Backup Rate: 8, FiO2: jh6 40%, Full face fask, jh6 23:05 23:03 Respiratory: Airway is patent Respiratory effort is labored, Respiratory pattern jh6 is tachypnea Breath sounds are diminished in right upper lobe, left upper lobe, right middle lobe, left lower lobe, right lower lobe, left posterior upper lobe, right posterior upper lobe, left posterior lower lobe, right posterior middle lobe and right posterior lower lobe jh6 Chart Complete MTDD
--- NOTE | 2016-10-08 04:20 | EDDOCDS ---
Physician Documentation [facility] Name: Wilma Gaines Age: 61 yrs Sex: Female : 1955 Arrival Date: 10/05/2016 Time: 22:37 Bed 2 Private MD: Disposition: 10/06/16 02:05 Hospitalization ordered by Israel Ramirez for Inpatient Admission. Preliminary diagnosis are Acute respiratory failure with hypercapnia, Acute respiratory failure with hypoxia. - Bed requested for M ICU. - Status is Inpatient Admission. wilfred - Condition is Stable. - Problem is an acute exacerbation. - Symptoms have improved. Historical: - Allergies: No known drug Allergies; - Home Meds: 1. metoprolol tartrate 25 mg Oral tab 2. atorvastatin 20 mg oral tab 3. amlodipine 5 mg Oral tab 4. Plavix 75 mg Oral tab 5. benophen 6. aspirin 81 mg Oral tab 7. bisacodyl 5 mg Oral tab - PMHx: Hypertension; COPD; Hypercholesterolemia; - PSHx: none; - Social history: Smoking status: Patient uses tobacco products, current every day smoker. No barriers to communication noted, The patient speaks fluent Hungarian, Speaks appropriately for age. - Family history: Not pertinent. - : The pt / caregiver states he / she is not on anticoagulants. Home medication list is obtained from the patient. - Exposure Risk Screening:: None identified. Vital Signs: 10/05 22:42 BP 173 / 83 (auto/); ko2 22:43 Pulse 144 MON; Pulse Ox 96% ; ko2 22:48 BP 173 / 83; Pulse 145; Resp 26; Temp 100.4; Pulse Ox 96% on 2 lpm NC; Weight 77 kg / cln 169.76 lbs; Height 5 ft. 5 in. (165.10 cm); 22:55 BP 165 / 74 (auto/); ko2 22:55 Pulse 147 MON; Pulse Ox 92% ; ko2 22:59 Pulse 146 MON; Pulse Ox 90% ; ko2 23:00 BP 164 / 75 (auto/); ko2 23:15 BP 156 / 62 (auto/); ko2 23:16 Pulse 144 MON; Pulse Ox 94% ; ko2 23:30 BP 151 / 69 (auto/); ko2 23:30 Pulse 143 MON; Pulse Ox 93% ; ko2 10/06 00:00 BP 136 / 71 (auto/); ko2 00:01 Pulse 135 MON; Pulse Ox 94% ; ko2 00:10 BP 132 / 66 (auto/); ko2 00:10 Pulse 136 MON; Pulse Ox 91% ; ko2 00:25 BP 129 / 69 (auto/); ko2 00:26 Pulse 145 MON; Pulse Ox 92% ; ko2 00:40 BP 135 / 64 (auto/); ko2 00:41 Pulse 147 MON; Pulse Ox 95% ; ko2 00:55 BP 116 / 57 (auto/); ko2 00:56 Pulse 139 MON; Pulse Ox 95% ; ko2 01:10 BP 116 / 64 (auto/); ko2 01:11 Pulse 127 MON; Pulse Ox 96% ; ko2 01:25 BP 122 / 63 (auto/); ko2 01:25 Pulse 127 MON; Pulse Ox 92% ; ko2 01:40 BP 120 / 65 (auto/); ko2 01:40 Pulse 132 MON; Pulse Ox 95% ; ko2 01:55 BP 120 / 59 (auto/); ko2 01:56 Pulse 133 MON; Pulse Ox 94% ; ko2 02:10 BP 109 / 58 (auto/); ko2 02:10 Pulse 121 MON; Pulse Ox 93% ; ko2 02:25 BP 115 / 58 (auto/); ko2 02:26 Pulse 122 MON; Pulse Ox 92% ; ko2 02:40 BP 110 / 57 (auto/); ko2 02:41 Pulse 120 MON; Pulse Ox 93% ; ko2 02:55 BP 120 / 64 (auto/); ko2 02:55 Pulse 123 MON; Pulse Ox 93% ; ko2 10/05 22:48 Body Mass Index 28.25 (77.00 kg, 165.10 cm) cln MDM: 10/05 22:41 -Arterial Blood Gas Ordered. EDMS 22:41 Solu-MEDROL 125 mg IVP once ordered. mm11 22:41 -Blood Culture (Adults Only), peripheral from different site, or from device/port/PICC mm11 etc. if present ordered. 22:41 Ram Car Operator/Pulse Ox/q 15 min VS ordered. mm11 22:41 IV Saline Lock ordered. mm11 22:41 Oxygen at 4L/Min NC or Home dosage ordered. mm11 22:41 Rhythm Strip to chart ordered. mm11 22:43 B-Type Natiuretic Peptide Ordered. EDMS 22:43 Basic Metabolic Profile Ordered. EDMS 22:43 CBC with Diff Ordered. EDMS 22:43 Cardiac Injury Profile Ordered. EDMS 22:43 Troponin Ordered. EDMS 22:43 Lactic Acid (Sanderson tube on ice) Ordered. EDMS 22:43 -Blood Culture Ordered. EDMS 22:43 Chest, 1 View Ordered. EDMS 22:43 ECG WITH READING ER PHYS+CARDIAG ordered. EDMS 22:55 Albuterol-Ipratropium 1 neb Nebulizer every 20 minutes x3 ordered. jh6 23:00 -Arterial Blood Gas Reviewed. mm11 23:02 Ventilator settings as per RT ordered. mm11 23:03 BED REQUEST+ADM ordered. EDMS 23:03 levofloxacin 750 mg IVPB once over 90 mins ordered. mm11 23:03 -Blood Culture (Adults Only), peripheral from different site, or from device/port/PICC ml3 etc. if present complete. 23:04 BLOOD CULTURES Ordered. EDMS 23:04 BIPAP INPATIENT+RESP-VENT ordered. EDMS 23:10 Redraw ABG (put time in details section) ordered. mm11 23:16 Redraw ABG (put time in details section) complete. ml3 23:18 DIFFERENTIAL NO CHARGE Ordered. EDMS 23:18 ARTERIAL BLOOD GAS Ordered. EDMS 23:26 Magnesium Sulfate 1 grams IVPB once over 1 hrs; administer over at least 1 hour ordered.mm11 10/06 00:11 REPLACED BY [facility] Payment Agreement was scanned into [employer] and attached to record. jp5 00:11 Financial registration complete. jp5 00:36 -Arterial Blood Gas: \T\0130 Ordered. EDMS 00:44 B-Type Natiuretic Peptide Reviewed. mm11 00:44 Basic Metabolic Profile Reviewed. mm11 00:44 CBC with Diff Reviewed. mm11 00:44 ARTERIAL BLOOD GAS Reviewed. mm11 00:44 Cardiac Injury Profile Reviewed. mm11 00:44 Troponin Reviewed. mm11 00:44 Lactic Acid (Sanderson tube on ice) Reviewed. mm11 00:44 PLATELET ESTIMATE Reviewed. mm11 01:46 -Arterial Blood Gas: \T\0130 Reviewed. mm11 02:00 Misc Field Service Engineer Order ordered. mm11 02:20 Misc Field Service Engineer Order complete. ml3 02:47 RESPIRATORY PANEL Ordered. EDMS 02:57 ARTERIAL BLOOD GAS Ordered. EDMS 02:59 Admission / Observation Status ordered. EDMS 02:59 NPO DIET ordered. EDMS 02:59 SPUTUM CULTURE AND GRAM STAIN Ordered. EDMS 03:00 PORTABLE CHEST X-RAY Ordered. EDMS 11:46 T-Sheet-- Draft Copy was scanned into [employer] and attached to record. gb Administered Medications: 10/05 23:00 Drug: Albuterol-Ipratropium 1 neb [ipratropium-albuterol 0.5 mg-3 mg(2.5 mg base)/3 mL jh6 nebulization soln (1 neb)] Route: Nebulizer; 23:12 Drug: Solu-MEDROL 125 mg [Solu-Medrol 500 mg intravenous solution (125 mg)] Route: IVP; ko2 Site: right antecubital; 23:21 Drug: levofloxacin 750 mg [levofloxacin 750 mg/150 mL in 5 % dextrose intravenous ko2 piggyback] Route: IVPB; Infused Over: 90 mins; Site: right antecubital; 23:25 Drug: Albuterol-Ipratropium 1 neb [ipratropium-albuterol 0.5 mg-3 mg(2.5 mg base)/3 mL jh6 nebulization soln (1 neb)] Route: Nebulizer; 23:53 Drug: Albuterol-Ipratropium 1 neb [ipratropium-albuterol 0.5 mg-3 mg(2.5 mg base)/3 mL jh6 nebulization soln (1 neb)] Route: Nebulizer; 23:53 Drug: Magnesium Sulfate 1 grams [magnesium sulfate 1 gram/100 mL in dextrose 5 % ko2 intravenous piggyback] {Co-Signature: [email or web address] (Juaquin Suh RN).} Route: IVPB; Infused Over: 1 hrs; Site: left forearm; Signatures: Dispatcher MedHost EDMS Chacha Guillermo RN RN jan Barnhardt, Gloria, Reg Reg Dutch [place]las, Buffet Attendant Unit ml3 Peyton Bell RN RN [phone] Steve Ferrari, DO mm11 Bob Oviedo jh6 Eryn Segura RN RN ko2 Ashvin Vazquez 5 Juaquin Suh RN mb9 The chart was reviewed and I authenticate all verbal orders and agree with the evaluation and treatment provided.Corrections: (The following items were deleted from the chart) 10/06 02:56 02:23 RESPIRATORY PANEL ordered. EDMS EDMS Attachments: 00:11 REPLACED BY [facility] Payment Agreement jp5 11:46 T-Sheet-- Draft Copy gb Chart Complete MTDD
--- NOTE | 2016-10-08 04:20 | EDDOCDS ---
Physician Documentation [facility] Name: Wilma Gaines Age: 61 yrs Sex: Female : 1955 Arrival Date: 10/05/2016 Time: 22:37 Bed 2 Private MD: Disposition: 10/06/16 02:05 Hospitalization ordered by Israel Ramirez for Inpatient Admission. Preliminary diagnosis are Acute respiratory failure with hypercapnia, Acute respiratory failure with hypoxia. - Bed requested for M ICU. - Status is Inpatient Admission. wilfred - Condition is Stable. - Problem is an acute exacerbation. - Symptoms have improved. Historical: - Allergies: No known drug Allergies; - Home Meds: 1. metoprolol tartrate 25 mg Oral tab 2. atorvastatin 20 mg oral tab 3. amlodipine 5 mg Oral tab 4. Plavix 75 mg Oral tab 5. benophen 6. aspirin 81 mg Oral tab 7. bisacodyl 5 mg Oral tab - PMHx: Hypertension; COPD; Hypercholesterolemia; - PSHx: none; - Social history: Smoking status: Patient uses tobacco products, current every day smoker. No barriers to communication noted, The patient speaks fluent Telugu, Speaks appropriately for age. - Family history: Not pertinent. - : The pt / caregiver states he / she is not on anticoagulants. Home medication list is obtained from the patient. - Exposure Risk Screening:: None identified. Vital Signs: 10/05 22:42 BP 173 / 83 (auto/); ko2 22:43 Pulse 144 MON; Pulse Ox 96% ; ko2 22:48 BP 173 / 83; Pulse 145; Resp 26; Temp 100.4; Pulse Ox 96% on 2 lpm NC; Weight 77 kg / cln 169.76 lbs; Height 5 ft. 5 in. (165.10 cm); 22:55 BP 165 / 74 (auto/); ko2 22:55 Pulse 147 MON; Pulse Ox 92% ; ko2 22:59 Pulse 146 MON; Pulse Ox 90% ; ko2 23:00 BP 164 / 75 (auto/); ko2 23:15 BP 156 / 62 (auto/); ko2 23:16 Pulse 144 MON; Pulse Ox 94% ; ko2 23:30 BP 151 / 69 (auto/); ko2 23:30 Pulse 143 MON; Pulse Ox 93% ; ko2 10/06 00:00 BP 136 / 71 (auto/); ko2 00:01 Pulse 135 MON; Pulse Ox 94% ; ko2 00:10 BP 132 / 66 (auto/); ko2 00:10 Pulse 136 MON; Pulse Ox 91% ; ko2 00:25 BP 129 / 69 (auto/); ko2 00:26 Pulse 145 MON; Pulse Ox 92% ; ko2 00:40 BP 135 / 64 (auto/); ko2 00:41 Pulse 147 MON; Pulse Ox 95% ; ko2 00:55 BP 116 / 57 (auto/); ko2 00:56 Pulse 139 MON; Pulse Ox 95% ; ko2 01:10 BP 116 / 64 (auto/); ko2 01:11 Pulse 127 MON; Pulse Ox 96% ; ko2 01:25 BP 122 / 63 (auto/); ko2 01:25 Pulse 127 MON; Pulse Ox 92% ; ko2 01:40 BP 120 / 65 (auto/); ko2 01:40 Pulse 132 MON; Pulse Ox 95% ; ko2 01:55 BP 120 / 59 (auto/); ko2 01:56 Pulse 133 MON; Pulse Ox 94% ; ko2 02:10 BP 109 / 58 (auto/); ko2 02:10 Pulse 121 MON; Pulse Ox 93% ; ko2 02:25 BP 115 / 58 (auto/); ko2 02:26 Pulse 122 MON; Pulse Ox 92% ; ko2 02:40 BP 110 / 57 (auto/); ko2 02:41 Pulse 120 MON; Pulse Ox 93% ; ko2 02:55 BP 120 / 64 (auto/); ko2 02:55 Pulse 123 MON; Pulse Ox 93% ; ko2 10/05 22:48 Body Mass Index 28.25 (77.00 kg, 165.10 cm) cln MDM: 10/05 22:41 -Arterial Blood Gas Ordered. EDMS 22:41 Solu-MEDROL 125 mg IVP once ordered. mm11 22:41 -Blood Culture (Adults Only), peripheral from different site, or from device/port/PICC mm11 etc. if present ordered. 22:41 Supervisor Felting/Pulse Ox/q 15 min VS ordered. mm11 22:41 IV Saline Lock ordered. mm11 22:41 Oxygen at 4L/Min NC or Home dosage ordered. mm11 22:41 Rhythm Strip to chart ordered. mm11 22:43 B-Type Natiuretic Peptide Ordered. EDMS 22:43 Basic Metabolic Profile Ordered. EDMS 22:43 CBC with Diff Ordered. EDMS 22:43 Cardiac Injury Profile Ordered. EDMS 22:43 Troponin Ordered. EDMS 22:43 Lactic Acid (Sanderson tube on ice) Ordered. EDMS 22:43 -Blood Culture Ordered. EDMS 22:43 Chest, 1 View Ordered. EDMS 22:43 ECG WITH READING ER PHYS+CARDIAG ordered. EDMS 22:55 Albuterol-Ipratropium 1 neb Nebulizer every 20 minutes x3 ordered. jh6 23:00 -Arterial Blood Gas Reviewed. mm11 23:02 Ventilator settings as per RT ordered. mm11 23:03 BED REQUEST+ADM ordered. EDMS 23:03 levofloxacin 750 mg IVPB once over 90 mins ordered. mm11 23:03 -Blood Culture (Adults Only), peripheral from different site, or from device/port/PICC ml3 etc. if present complete. 23:04 BLOOD CULTURES Ordered. EDMS 23:04 BIPAP INPATIENT+RESP-VENT ordered. EDMS 23:10 Redraw ABG (put time in details section) ordered. mm11 23:16 Redraw ABG (put time in details section) complete. ml3 23:18 DIFFERENTIAL NO CHARGE Ordered. EDMS 23:18 ARTERIAL BLOOD GAS Ordered. EDMS 23:26 Magnesium Sulfate 1 grams IVPB once over 1 hrs; administer over at least 1 hour ordered.mm11 10/06 00:11 [facility] Payment Agreement was scanned into [employer] and attached to record. jp5 00:11 Financial registration complete. jp5 00:36 -Arterial Blood Gas: \T\0130 Ordered. EDMS 00:44 B-Type Natiuretic Peptide Reviewed. mm11 00:44 Basic Metabolic Profile Reviewed. mm11 00:44 CBC with Diff Reviewed. mm11 00:44 ARTERIAL BLOOD GAS Reviewed. mm11 00:44 Cardiac Injury Profile Reviewed. mm11 00:44 Troponin Reviewed. mm11 00:44 Lactic Acid (Sanderson tube on ice) Reviewed. mm11 00:44 PLATELET ESTIMATE Reviewed. mm11 01:46 -Arterial Blood Gas: \T\0130 Reviewed. mm11 02:00 Misc Ham Doctor Order ordered. mm11 02:20 Misc Ham Doctor Order complete. ml3 02:47 RESPIRATORY PANEL Ordered. EDMS 02:57 ARTERIAL BLOOD GAS Ordered. EDMS 02:59 Admission / Observation Status ordered. EDMS 02:59 NPO DIET ordered. EDMS 02:59 SPUTUM CULTURE AND GRAM STAIN Ordered. EDMS 03:00 PORTABLE CHEST X-RAY Ordered. EDMS 11:46 T-Sheet-- Draft Copy was scanned into [employer] and attached to record. gb Administered Medications: 10/05 23:00 Drug: Albuterol-Ipratropium 1 neb [ipratropium-albuterol 0.5 mg-3 mg(2.5 mg base)/3 mL jh6 nebulization soln (1 neb)] Route: Nebulizer; 23:12 Drug: Solu-MEDROL 125 mg [Solu-Medrol 500 mg intravenous solution (125 mg)] Route: IVP; ko2 Site: right antecubital; 23:21 Drug: levofloxacin 750 mg [levofloxacin 750 mg/150 mL in 5 % dextrose intravenous ko2 piggyback] Route: IVPB; Infused Over: 90 mins; Site: right antecubital; 23:25 Drug: Albuterol-Ipratropium 1 neb [ipratropium-albuterol 0.5 mg-3 mg(2.5 mg base)/3 mL jh6 nebulization soln (1 neb)] Route: Nebulizer; 23:53 Drug: Albuterol-Ipratropium 1 neb [ipratropium-albuterol 0.5 mg-3 mg(2.5 mg base)/3 mL jh6 nebulization soln (1 neb)] Route: Nebulizer; 23:53 Drug: Magnesium Sulfate 1 grams [magnesium sulfate 1 gram/100 mL in dextrose 5 % ko2 intravenous piggyback] {Co-Signature: mb9 (Juaquin Suh RN).} Route: IVPB; Infused Over: 1 hrs; Site: left forearm; Signatures: Dispatcher MedHost EDMS Chacha Guillermo RN RN jan Barnhardt, Gloria, Reg Reg Dutch [place]las, Gym Instructor Unit ml3 Peyton Bell RN RN [phone] Steve Ferrari, DO mm11 Bob Oviedo jh6 Eryn Segura RN RN ko2 Ashvin Vazquez 5 Juaquin Suh RN mb9 The chart was reviewed and I authenticate all verbal orders and agree with the evaluation and treatment provided.Corrections: (The following items were deleted from the chart) 10/06 02:56 02:23 RESPIRATORY PANEL ordered. EDMS EDMS Attachments: 00:11 [facility] Payment Agreement jp5 11:46 T-Sheet-- Draft Copy gb Chart Complete MTDD
[2016-10-08] MEDS: SLF 3 ML SYR IV SCH ×3 (05:02→21:09)
[2016-10-08 05:21] LABS: MEAN CORPUSCULAR HEMOGLOBIN 29.4 pg (27.0-33.0); MEAN CORPUSCULAR HGB CONC 31.8 g/dl (32.0-36.5); MEAN CORPUSCULAR VOLUME 92.4 fl (80.0-96.0); RED CELL DISTRIBUTION WIDTH 14.8 % (11.5-14.5); WHITE BLOOD COUNT 15.3 K/mm3 (4.0-10.0)
[2016-10-08 06:41] LABS: ALBUMIN 2.8 GM/DL (3.2-5.2); ANION GAP 3 MEQ/L (8-16); BLOOD UREA NITROGEN 13 MG/DL (7-18); CARBON DIOXIDE LEVEL 40 MEQ/L (21-32); CHLORIDE LEVEL 91 MEQ/L (98-107); CREATININE FOR GFR 0.62 MG/DL (0.55-1.02); GLOMERULAR FILTRATION RATE > 60.0 (>45); GLUCOSE, FASTING 209 MG/DL (80-110); SODIUM LEVEL 134 MEQ/L (136-145)
[2016-10-08 06:52] LABS: PHOSPHORUS LEVEL 2.1 MG/DL (2.5-4.9); POTASSIUM SERUM 5.5 MEQ/L (3.5-5.1)
[2016-10-08] MEDS: IPRATROPIUM 0.5MG/ALBUTEROL 2.5MG INH SOL UD 3ML (DUONEB)(J7620) NEB SCH ×3 (08:26→23:34)
[2016-10-08] MEDS: DOCUSATE SODIUM 100 MG CAP PO SCH ×2 (08:44→20:21)
[2016-10-08] MEDS: ENOXAPARIN 40 MG/0.4 ML SYRINGE (J1650) SC SCH (08:44)
[2016-10-08] MEDS: ATORVASTATIN 20 MG TAB PO SCH (08:45)
[2016-10-08] MEDS: amLODIPine 10 MG TAB PO SCH (08:45)
[2016-10-08] MEDS: CLOPIDOGREL 75 MG TAB PO SCH (08:45)
[2016-10-08] MEDS: METOPROLOL TART 12.5 MG PER 1/2 TAB PO SCH ×2 (08:45→20:22)
[2016-10-08] MEDS: ASPIRIN 81 MG ENTERIC TAB PO SCH (08:45)
--- NOTE | 2016-10-08 09:28 | IPNPDOC ---
Subjective Date Seen The patient was seen on 10/08/16. Subjective Chief Complaint/HPI The patient is a 61-year-old female admitted with a reason for visit of Acute Respiratory Failure/Copd. General: Denies: Chills, Fatigue, Malaise, Night Sweats, Normal Appetite, Other Symptoms, ROS Unobtainable Constitutional: Denies: Chills, Fatigue, Fever, Lethargy, Malaise, Night Sweats , Other, Weakness, Weight Loss Eyes: Denies: Conjunctivae inflammation, Eyelid inflammation, Other, Pain, Redness, Vision change ENT: Denies: Dysphagia, Ear Pain, Epistaxis, Head Aches, Other Symptoms, Post Nasal Drip, Sinus Congestion, Sore Throat Skin: Denies: Breakdown, Bruising, Dry, Itching, Jaundice, Lesions, Nail Changes, Other, Rash Pulmonary: Reports: Cough, Dyspnea, Denies: Other Symptoms, Pleuritic Chest Pain Cardiovascular: Denies: Chest Pain, Edema, Lt Headedness, Orthopnea, Other Symptoms, Palpitations, Paroxysmal Noc. Dyspnea Gastrointestinal: Denies: Abdominal Pain, Constipation, Diarrhea, Hematochezia , Melena, Nausea, Other Symptoms, Vomiting Objective Physical Examination General Exam: Positive: Alert, Cooperative, No Acute Distress Eye Exam: Positive: Conjunctiva & lids normal, EOMI, PERRLA, Negative: Sclera icteric ENT Exam: Positive: Atraumatic, Mucous membr. moist/pink Neck Exam: Positive: Supple Chest Exam: Positive: Clear to auscultation, Diminished Heart Exam: Positive: Rate Normal, Regular Rhythm Telemetry: Positive: No significant arrhythmia Abdomen Exam: Positive: Normal bowel sounds, Soft, Negative: Tenderness Extremity Exam: Negative: Edema Psych Exam: Positive: Oriented x 3 Assessment /Plan Problems (1) Acute respiratory failure Status: Acute Response to Treatment: Improving Discussed With: Shovel Logger, Patient Problem Specific Plan: Consult Specialist, Monitor Clinically Problem Text: Hypoxic hypercapnic respiratory failure. ABG pending for today. Saturating well on 5L, states her baseline is 2L. Continue to wean O2. IV steroids, Levaquin, Duonebs. Incentive spirometry, acapella. Gram sputum noted +yeast. Consider fluconazole. (2) COPD (chronic obstructive pulmonary disease) Status: Acute Response to Treatment: Improving Discussed With: Patient Problem Specific Plan: Monitor Clinically, Repeat Labs (3) Dyslipidemia Status: Chronic Problem Text: Continue Lipitor. (4) HTN (hypertension) Status: Chronic Problem Specific Plan: Monitor Clinically Problem Text: Continue norvasc, lopressor. (5) Hyponatremia Status: Chronic Discussed With: Patient Problem Specific Plan: Monitor Clinically, Repeat Labs Problem Text: Asymptomatic, continue to follow. (6) Hyperkalemia Status: Acute Problem Specific Plan: Monitor Clinically, Repeat Labs Problem Text: Check ABG. Possibly secondary to acidosis. Consider kayexalate x 1 today. Recheck in 12 hours. Plan/VTE VTE Prophylaxis Ordered?: Yes (Lovenox) Plan Diet: Continue Current Activity: Continue Current Medications: Taper Steroids Respiratory: Wean Oxygen Diagnostics: Repeat Labs in AM Anticipated Discharge: Home VS, I&O, 24H, [facility] Vital Signs/I&O Vital Signs Date Time Temp Pulse Resp B/P Pulse Ox O2 Delivery O2 Flow Rate FiO2 10/08/16 08:45 100 142/76 10/08/16 06:00 94 Nasal Cannula 5.0 10/08/16 04:30 97.5 20 10/07/16 01:41 50 I&O- Last 24 Hours up to 6 AM 10/08/16 05:59 Intake Total 1660 ml Output Total 2225 ml Balance -565 ml Laboratory Data 24H LABS Laboratory Tests 2 10/08/16 05:53: Albumin 2.8L, Blood Urea Nitrogen 13, Creatinine 0.62, Sodium Level 134L, Potassium Level 5.5H, Chloride Level 91L, Carbon Dioxide Level 40H, Anion Gap 3L , Calcium Level 9.0, Glomerular Filtration Rate > 60.0, Phosphorus Level 2.1#L CBC/BMP Laboratory Tests 10/08/16 05:08 Red Blood Count 4.65, Mean Corpuscular Volume 92.4, Mean Corpuscular Hemoglobin 29.4, Mean Corpuscular Hemoglobin Concent 31.8 L, Red Cell Distribution Width 14.8 H 10/08/16 05:53 Anion Gap 3 L Microbiology Microbiology 10/05/16 Blood Culture - Preliminary, Resulted No Growth after 48 hours. All Specime... 10/05/16 Blood Culture - Preliminary, Resulted No Growth after 48 hours. All Specime... 10/06/16 Gram Stain - Final, Complete 10/06/16 Sputum Culture - Final, Complete Yeast Like Organism 10/06/16 Respiratory Virus Panel (PCR) ([facility]) - Final, Complete CHRISTIANA VEGAS MD Oct 08, 2016 09:28
[2016-10-08 10:07] LABS: ABG BASE EXCESS 10.6 (-2.0-2.0); ABG HCO3 40.1 MEQ/L (22.0-26.0); ABG PARTIAL PRESSURE O2 60.8 mmHg (75.0-100.0); ABG STANDARD HCO3 34.2 MEQ/L (22.0-26.0); ABG TOTAL CO2 42.6 MEQ/L (23.0-31.0); ABG pH (ARTERIAL) 7.326 UNITS (7.350-7.450)
[2016-10-08 10:18] LABS: ABG PARTIAL PRESSURE CO2 78.6 mmHg (35.0-45.0)
[2016-10-08] MEDS: LevoFLOXacin 500 MG TABLET PO SCH (18:05)
[2016-10-08 18:35] LABS: ANION GAP 3 MEQ/L (8-16); BLOOD UREA NITROGEN 14 MG/DL (7-18); CALCIUM LEVEL 9.1 MG/DL (8.8-10.2); CARBON DIOXIDE LEVEL 42 MEQ/L (21-32); CHLORIDE LEVEL 86 MEQ/L (98-107); CREATININE FOR GFR 0.67 MG/DL (0.55-1.02); GLOMERULAR FILTRATION RATE > 60.0 (>45); GLUCOSE, FASTING 245 MG/DL (80-110); POTASSIUM SERUM 4.9 MEQ/L (3.5-5.1); SODIUM LEVEL 131 MEQ/L (136-145)
[2016-10-09] MEDS: SLF 3 ML SYR IV SCH ×3 (02:52→20:08)
[2016-10-09] MEDS: methylPREDNISolone INJ 125 MG/2 ML VIAL (J2930) IV SCH ×2 (02:52→13:59)
[2016-10-09 04:00] VITALS: BP 164/81
[2016-10-09] MEDS: LevoFLOXacin 500 MG TABLET PO SCH (05:29)
[2016-10-09 06:39] LABS: MEAN CORPUSCULAR HEMOGLOBIN 28.8 pg (27.0-33.0); MEAN CORPUSCULAR HGB CONC 31.3 g/dl (32.0-36.5); RED CELL DISTRIBUTION WIDTH 14.8 % (11.5-14.5); WHITE BLOOD COUNT 11.4 K/mm3 (4.0-10.0)
[2016-10-09 06:46] LABS: ALBUMIN 2.7 GM/DL (3.2-5.2); ANION GAP 4 MEQ/L (8-16); BLOOD UREA NITROGEN 13 MG/DL (7-18); CALCIUM LEVEL 9.2 MG/DL (8.8-10.2); CARBON DIOXIDE LEVEL 44 MEQ/L (21-32); CHLORIDE LEVEL 88 MEQ/L (98-107); CREATININE FOR GFR 0.61 MG/DL (0.55-1.02); GLOMERULAR FILTRATION RATE > 60.0 (>45); GLUCOSE, FASTING 145 MG/DL (80-110); PHOSPHORUS LEVEL 2.6 MG/DL (2.5-4.9); SODIUM LEVEL 136 MEQ/L (136-145)
[2016-10-09] MEDS: IPRATROPIUM 0.5MG/ALBUTEROL 2.5MG INH SOL UD 3ML (DUONEB)(J7620) NEB SCH ×3 (07:04→23:22)
--- NOTE | 2016-10-09 07:45 | IPNPDOC ---
Subjective Date Seen The patient was seen on 10/09/16. Subjective Chief Complaint/HPI The patient is a 61-year-old female admitted with a reason for visit of Acute Respiratory Failure/Copd. General: Denies: Chills, Fatigue, Malaise, Night Sweats, Normal Appetite, Other Symptoms, ROS Unobtainable Constitutional: Denies: Chills, Fatigue, Fever, Lethargy, Malaise, Night Sweats , Other, Weakness, Weight Loss Eyes: Denies: Conjunctivae inflammation, Eyelid inflammation, Other, Pain, Redness, Vision change ENT: Denies: Dysphagia, Ear Pain, Epistaxis, Head Aches, Other Symptoms, Post Nasal Drip, Sinus Congestion, Sore Throat Skin: Denies: Breakdown, Bruising, Dry, Itching, Jaundice, Lesions, Nail Changes, Other, Rash Pulmonary: Reports: Cough, Dyspnea, Denies: Other Symptoms, Pleuritic Chest Pain Cardiovascular: Denies: Chest Pain, Edema, Lt Headedness, Orthopnea, Other Symptoms, Palpitations, Paroxysmal Noc. Dyspnea Gastrointestinal: Denies: Abdominal Pain, Constipation, Diarrhea, Hematochezia , Melena, Nausea, Other Symptoms, Vomiting Genitourinary: Denies: Dysuria, Frequency, Hematuria, Incontinence, Other Symptoms, Retention Objective Physical Examination General Exam: Positive: Alert, Cooperative, No Acute Distress Eye Exam: Positive: Conjunctiva & lids normal, EOMI, PERRLA, Negative: Sclera icteric ENT Exam: Positive: Atraumatic, Mucous membr. moist/pink Neck Exam: Positive: Supple Chest Exam: Positive: Diminished, Other (bibasilar crepitus) Heart Exam: Positive: Rate Normal, Regular Rhythm Abdomen Exam: Positive: Normal bowel sounds, Soft, Negative: Tenderness Extremity Exam: Negative: Edema Psych Exam: Positive: Oriented x 3 Assessment /Plan Problems (1) Acute respiratory failure Status: Acute Response to Treatment: Improving Discussed With: Metal Drilling Machine Operator, Patient Problem Specific Plan: Consult Specialist, Monitor Clinically Problem Text: Hypoxic hypercapnic respiratory failure. Repeat ABG pending for today. Repeat CXR. Saturating well on 5L, states her baseline is 2L. Continue to wean O2. Taper steroids, Levaquin, Duonebs. Incentive spirometry, acapella. Gram sputum noted +yeast. Consider fluconazole. (2) COPD (chronic obstructive pulmonary disease) Status: Acute Response to Treatment: Improving Discussed With: Patient Problem Specific Plan: Monitor Clinically, Repeat Labs Problem Text: As per resp failure. (3) Dyslipidemia Status: Chronic Problem Text: Continue Lipitor. (4) HTN (hypertension) Status: Chronic Problem Specific Plan: Monitor Clinically Problem Text: Continue norvasc, lopressor. (5) Hyponatremia Status: Chronic Discussed With: Patient Problem Specific Plan: Monitor Clinically, Repeat Labs Problem Text: Asymptomatic, continue to follow. (6) Hyperkalemia Status: Resolved Problem Specific Plan: Monitor Clinically, Repeat Labs Plan/VTE VTE Prophylaxis Ordered?: Yes (Lovenox) Plan Diet: Continue Current Activity: Continue Current Medications: Taper Steroids Respiratory: Wean Oxygen Diagnostics: Repeat Labs in AM Anticipated Discharge: Home VS, I&O, 24H, [facility] Vital Signs/I&O Vital Signs Date Time Temp Pulse Resp B/P Pulse Ox O2 Delivery O2 Flow Rate FiO2 10/09/16 04:00 97.0 88 20 164/81 93 Nasal Cannula 5.0 10/07/16 01:41 50 I&O- Last 24 Hours up to 6 AM 10/09/16 06:00 Intake Total 1080 ml Output Total 1650 ml Balance -570 ml Laboratory Data 24H LABS Laboratory Tests 2 10/08/16 09:57: Arterial Blood pH 7.326L, Arterial Blood Partial Pressure CO2 78.6*H, Arterial Blood Partial Pressure O2 60.8L, Arterial Blood Total CO2 42.6H, Arterial Blood HCO3 40.1H, Arterial Blood Base Excess 10.6H, Arterial Blood Oxygen Saturation 90.1L, Blood Gas Bicarbonate Standard 34.2H 10/08/16 17:55: Anion Gap 3L, Blood Urea Nitrogen 14, Creatinine 0.67, Sodium Level 131L, Potassium Level 4.9, Chloride Level 86L, Carbon Dioxide Level 42H, Calcium Level 9.1, Glomerular Filtration Rate > 60.0 10/09/16 06:19: Anion Gap 4L, Blood Urea Nitrogen 13, Creatinine 0.61, Sodium Level 136, Potassium Level 5.0, Chloride Level 88L, Carbon Dioxide Level 44H, Calcium Level 9.2, Glomerular Filtration Rate > 60.0, Albumin 2.7L, Phosphorus Level 2.6 # CBC/BMP Laboratory Tests 10/08/16 17:55 Calcium Level 9.1 10/09/16 06:19 Anion Gap 4 L, Red Blood Count 4.61, Mean Corpuscular Volume 92.0, Mean Corpuscular Hemoglobin 28.8, Mean Corpuscular Hemoglobin Concent 31.3 L, Red Cell Distribution Width 14.8 H Microbiology Microbiology 10/05/16 Blood Culture - Preliminary, Resulted No Growth after 72 hours. All specime... 10/05/16 Blood Culture - Preliminary, Resulted No Growth after 72 hours. All specime... 10/06/16 Gram Stain - Final, Complete 10/06/16 Sputum Culture - Final, Complete Yeast Like Organism 10/06/16 Respiratory Virus Panel (PCR) ([facility]) - Final, Complete CHRISTIANA VEGAS MD Oct 09, 2016 07:45
[2016-10-09 08:55] LABS: ABG HCO3 37.1 MEQ/L (22.0-26.0); ABG PARTIAL PRESSURE O2 62.4 mmHg (75.0-100.0); ABG STANDARD HCO3 33.6 MEQ/L (22.0-26.0); ABG pH (ARTERIAL) 7.406 UNITS (7.350-7.450)
[2016-10-09 08:59] LABS: ABG PARTIAL PRESSURE CO2 60.5 mmHg (35.0-45.0)
[2016-10-09] MEDS: CLOPIDOGREL 75 MG TAB PO SCH (09:58)
[2016-10-09] MEDS: ASPIRIN 81 MG ENTERIC TAB PO SCH (09:58)
[2016-10-09] MEDS: METOPROLOL TART 12.5 MG PER 1/2 TAB PO SCH ×2 (09:59→20:08)
[2016-10-09] MEDS: ATORVASTATIN 20 MG TAB PO SCH (09:59)
[2016-10-09] MEDS: amLODIPine 10 MG TAB PO SCH (09:59)
[2016-10-09] MEDS: DOCUSATE SODIUM 100 MG CAP PO SCH ×2 (09:59→20:08)
[2016-10-09] MEDS: ENOXAPARIN 40 MG/0.4 ML SYRINGE (J1650) SC SCH (10:00)
--- NOTE | 2016-10-09 10:44 | REP ---
Clinical: Shortness of breath. Technique: PA and lateral. Comparison: 10/07/2016. Findings: Bibasilar pleuroparenchymal changes (left greater than right) are essentially unchanged and include basilar atelectasis with small left pleural reaction. Small new right pleural reaction cannot be excluded. No pneumothorax. Visualized mediastinum and cardiac silhouette stable and normal. Skeletal structures intact. Impression: Bibasilar pleuroparenchymal changes similar to prior examination with possible small new right pleural reaction. Signed by Hubert Johnson MD 10/09/2016 10:35 A
[2016-10-09] MEDS: MIRALAX *UNIT DOSE* 17GM PACKET PO SCH (10:47)
[2016-10-09 14:00] VITALS: BP_SYST 130
[2016-10-09] MEDS: diphenhydrAMINE 50 MG CAP PO PRN (20:08)
[2016-10-09 22:00] VITALS: BP 138/83
[2016-10-10] MEDS: methylPREDNISolone INJ 125 MG/2 ML VIAL (J2930) IV SCH (01:58)
[2016-10-10 06:00] VITALS: BP 158/87
[2016-10-10 06:41] LABS: MEAN CORPUSCULAR HEMOGLOBIN 28.5 pg (27.0-33.0); MEAN CORPUSCULAR HGB CONC 31.4 g/dl (32.0-36.5); MEAN CORPUSCULAR VOLUME 90.7 fl (80.0-96.0); WHITE BLOOD COUNT 9.8 K/mm3 (4.0-10.0)
[2016-10-10] MEDS: SLF 3 ML SYR IV SCH ×3 (06:44→19:25)
[2016-10-10] MEDS: LevoFLOXacin 500 MG TABLET PO SCH (06:44)
[2016-10-10 06:58] LABS: ALBUMIN 2.9 GM/DL (3.2-5.2); ANION GAP 4 MEQ/L (8-16); BLOOD UREA NITROGEN 17 MG/DL (7-18); CALCIUM LEVEL 9.6 MG/DL (8.8-10.2); CARBON DIOXIDE LEVEL 43 MEQ/L (21-32); CHLORIDE LEVEL 88 MEQ/L (98-107); CREATININE FOR GFR 0.72 MG/DL (0.55-1.02); GLOMERULAR FILTRATION RATE > 60.0 (>45); GLUCOSE, FASTING 148 MG/DL (80-110); PHOSPHORUS LEVEL 3.2 MG/DL (2.5-4.9); SODIUM LEVEL 135 MEQ/L (136-145)
--- NOTE | 2016-10-10 07:42 | IPNPDOC ---
Subjective Date Seen The patient was seen on 10/10/16. Subjective Chief Complaint/HPI The patient is a 61-year-old female admitted with a reason for visit of Acute Respiratory Failure/Copd. Events since last encounter States she is feeling better today. Feels her breathing is improving. General: Denies: Chills, Fatigue, Malaise, Night Sweats, Normal Appetite, Other Symptoms, ROS Unobtainable Constitutional: Denies: Chills, Fatigue, Fever, Lethargy, Malaise, Night Sweats , Other, Weakness, Weight Loss Eyes: Denies: Conjunctivae inflammation, Eyelid inflammation, Other, Pain, Redness, Vision change ENT: Denies: Dysphagia, Ear Pain, Epistaxis, Head Aches, Other Symptoms, Post Nasal Drip, Sinus Congestion, Sore Throat Skin: Denies: Breakdown, Bruising, Dry, Itching, Jaundice, Lesions, Nail Changes, Other, Rash Pulmonary: Reports: Dyspnea, Denies: Cough, Other Symptoms, Pleuritic Chest Pain Cardiovascular: Denies: Chest Pain, Edema, Lt Headedness, Orthopnea, Other Symptoms, Palpitations, Paroxysmal Noc. Dyspnea Gastrointestinal: Denies: Abdominal Pain, Constipation, Diarrhea, Hematochezia , Melena, Nausea, Other Symptoms, Vomiting Genitourinary: Denies: Dysuria, Frequency, Hematuria, Incontinence, Other Symptoms, Retention Objective Physical Examination General Exam: Positive: Alert, Cooperative, No Acute Distress Eye Exam: Positive: Conjunctiva & lids normal, EOMI, PERRLA, Negative: Sclera icteric ENT Exam: Positive: Atraumatic, Mucous membr. moist/pink Neck Exam: Positive: Supple Chest Exam: Positive: Other (bibasilar crepitus), Wheezing Heart Exam: Positive: Rate Normal, Regular Rhythm Abdomen Exam: Positive: Normal bowel sounds, Soft, Negative: Tenderness Extremity Exam: Negative: Edema Psych Exam: Positive: Oriented x 3 Assessment /Plan Problems (1) Acute respiratory failure Status: Acute Response to Treatment: Improving Discussed With: Sole Assessor, Patient Problem Specific Plan: Consult Specialist, Monitor Clinically Problem Text: Hypoxic hypercapnic respiratory failure. Saturating well on 4-5L, states her baseline is 2L. Continue to wean O2. Transition to prednisone. Continue Levaquin, Duonebs. Incentive spirometry, acapella. Gram sputum noted +yeast. D/w pulmo, fluconazole not recommended. (2) COPD (chronic obstructive pulmonary disease) Status: Acute Response to Treatment: Improving Discussed With: Patient Problem Specific Plan: Monitor Clinically, Repeat Labs Problem Text: As per resp failure. (3) Dyslipidemia Status: Chronic Problem Text: Continue Lipitor. (4) HTN (hypertension) Status: Chronic Problem Specific Plan: Monitor Clinically Problem Text: Continue norvasc, lopressor. (5) Hyponatremia Status: Chronic Discussed With: Patient Problem Specific Plan: Monitor Clinically, Repeat Labs Problem Text: Asymptomatic, continue to follow. (6) Hyperkalemia Status: Resolved Problem Specific Plan: Monitor Clinically, Repeat Labs Plan/VTE VTE Prophylaxis Ordered?: Yes (Lovenox) Plan Diet: Continue Current Activity: Continue Current Therapy: PT Medications: Taper Steroids Respiratory: Wean Oxygen Diagnostics: Repeat Labs in AM Anticipated Discharge: Home VS, I&O, 24H, [facility] Vital Signs/I&O Vital Signs Date Time Temp Pulse Resp B/P Pulse Ox O2 Delivery O2 Flow Rate FiO2 10/10/16 06:00 97.4 102 20 158/87 90 Nasal Cannula 4.0 10/07/16 01:41 50 I&O- Last 24 Hours up to 6 AM 10/10/16 06:00 Intake Total 1920 ml Output Total 550 ml Balance 1370 ml Laboratory Data 24H LABS Laboratory Tests 2 10/09/16 08:44: Arterial Blood pH 7.406, Arterial Blood Partial Pressure CO2 60.5*H, Arterial Blood Partial Pressure O2 62.4L, Arterial Blood Total CO2 39.0H, Arterial Blood HCO3 37.1H, Arterial Blood Base Excess 10.0H, Arterial Blood Oxygen Saturation 92.6L, Blood Gas Bicarbonate Standard 33.6H 10/10/16 06:17: Albumin 2.9L, Blood Urea Nitrogen 17, Creatinine 0.72, Sodium Level 135L, Potassium Level 5.0, Chloride Level 88L, Carbon Dioxide Level 43H, Anion Gap 4L , Calcium Level 9.6, Glomerular Filtration Rate > 60.0, Phosphorus Level 3.2# CBC/BMP Laboratory Tests 10/10/16 06:17 Anion Gap 4 L, Red Blood Count 5.11, Mean Corpuscular Volume 90.7, Mean Corpuscular Hemoglobin 28.5, Mean Corpuscular Hemoglobin Concent 31.4 L, Red Cell Distribution Width 15.0 H Microbiology Microbiology 10/05/16 Blood Culture - Preliminary, Resulted No Growth after 72 hours. All specime... 10/05/16 Blood Culture - Preliminary, Resulted No Growth after 72 hours. All specime... 10/06/16 Gram Stain - Final, Complete 10/06/16 Sputum Culture - Final, Complete Yeast Like Organism 10/06/16 Respiratory Virus Panel (PCR) ([facility]) - Final, Complete CHRISTIANA VEGAS MD Oct 10, 2016 07:42
[2016-10-10] MEDS: IPRATROPIUM 0.5MG/ALBUTEROL 2.5MG INH SOL UD 3ML (DUONEB)(J7620) NEB SCH ×3 (08:19→23:15)
[2016-10-10] MEDS: METOPROLOL TART 12.5 MG PER 1/2 TAB PO SCH ×2 (08:21→19:25)
[2016-10-10] MEDS: DOCUSATE SODIUM 100 MG CAP PO SCH ×2 (08:21→19:24)
[2016-10-10] MEDS: CLOPIDOGREL 75 MG TAB PO SCH (08:22)
[2016-10-10] MEDS: predniSONE 20 MG TAB PO SCH (08:22)
[2016-10-10] MEDS: ASPIRIN 81 MG ENTERIC TAB PO SCH (08:22)
[2016-10-10] MEDS: amLODIPine 10 MG TAB PO SCH (08:22)
[2016-10-10] MEDS: MIRALAX *UNIT DOSE* 17GM PACKET PO SCH (08:22)
[2016-10-10] MEDS: ATORVASTATIN 20 MG TAB PO SCH (08:22)
[2016-10-10] MEDS: ENOXAPARIN 40 MG/0.4 ML SYRINGE (J1650) SC SCH (08:23)
[2016-10-10 15:10] VITALS: BP 165/91
[2016-10-10] MEDS: BISACODYL 5 MG TAB PO PRN (17:34)
[2016-10-10] MEDS: SODIUM CHLORIDE NASAL 0.65% SPRAY BTL (OCEAN) SCH (19:24)
[2016-10-10 22:00] VITALS: BP 132/75
[2016-10-11 05:54] LABS: MEAN CORPUSCULAR HEMOGLOBIN 28.4 pg (27.0-33.0); MEAN CORPUSCULAR HGB CONC 31.7 g/dl (32.0-36.5); MEAN CORPUSCULAR VOLUME 89.7 fl (80.0-96.0); RED CELL DISTRIBUTION WIDTH 14.8 % (11.5-14.5); WHITE BLOOD COUNT 11.2 K/mm3 (4.0-10.0)
[2016-10-11] MEDS: SLF 3 ML SYR IV SCH ×3 (05:54→20:53)
[2016-10-11] MEDS: LevoFLOXacin 500 MG TABLET PO SCH (05:54)
[2016-10-11 06:00] VITALS: BP 147/77
[2016-10-11 06:09] LABS: ALBUMIN 2.5 GM/DL (3.2-5.2); ANION GAP 3 MEQ/L (8-16); BLOOD UREA NITROGEN 14 MG/DL (7-18); CALCIUM LEVEL 8.5 MG/DL (8.8-10.2); CARBON DIOXIDE LEVEL 44 MEQ/L (21-32); CHLORIDE LEVEL 91 MEQ/L (98-107); CREATININE FOR GFR 0.58 MG/DL (0.55-1.02); GLOMERULAR FILTRATION RATE > 60.0 (>45); GLUCOSE, FASTING 88 MG/DL (80-110); POTASSIUM SERUM 4.3 MEQ/L (3.5-5.1); SODIUM LEVEL 138 MEQ/L (136-145)
[2016-10-11 06:34] LABS: PHOSPHORUS LEVEL 3.9 MG/DL (2.5-4.9)
[2016-10-11] MEDS: TIOTROPIUM INHALER/CAPSULE (SPIRIVA) INH SCH ×2 (08:00→12:33)
[2016-10-11] MEDS: SYMBICORT 80/4.5MCG INHALER 6GM INH SCH ×3 (09:00→20:48)
[2016-10-11] MEDS: IPRATROPIUM 0.5MG/ALBUTEROL 2.5MG INH SOL UD 3ML (DUONEB)(J7620) NEB SCH ×2 (09:08→15:11)
--- NOTE | 2016-10-11 09:20 | IPNPDOC ---
Subjective Date Seen The patient was seen on 10/11/16. Subjective Chief Complaint/HPI The patient is a 61-year-old female admitted with a reason for visit of Acute Respiratory Failure/Copd. General: Denies: Chills, Fatigue, Malaise, Night Sweats, Normal Appetite, Other Symptoms, ROS Unobtainable Constitutional: Denies: Chills, Fatigue, Fever, Lethargy, Malaise, Night Sweats , Other, Weakness, Weight Loss Eyes: Denies: Conjunctivae inflammation, Eyelid inflammation, Other, Pain, Redness, Vision change ENT: Denies: Dysphagia, Ear Pain, Epistaxis, Head Aches, Other Symptoms, Post Nasal Drip, Sinus Congestion, Sore Throat Skin: Denies: Breakdown, Bruising, Dry, Itching, Jaundice, Lesions, Nail Changes, Other, Rash Pulmonary: Reports: Dyspnea, Denies: Cough, Other Symptoms, Pleuritic Chest Pain Cardiovascular: Denies: Chest Pain, Edema, Lt Headedness, Orthopnea, Other Symptoms, Palpitations, Paroxysmal Noc. Dyspnea Gastrointestinal: Denies: Abdominal Pain, Constipation, Diarrhea, Hematochezia , Melena, Nausea, Other Symptoms, Vomiting Genitourinary: Denies: Dysuria, Frequency, Hematuria, Incontinence, Other Symptoms, Retention Objective Physical Examination General Exam: Positive: Alert, Cooperative, No Acute Distress Eye Exam: Positive: Conjunctiva & lids normal, EOMI, PERRLA, Negative: Sclera icteric ENT Exam: Positive: Atraumatic, Mucous membr. moist/pink Neck Exam: Positive: Supple Chest Exam: Positive: Diminished, Other (bibasilar crepitus) Heart Exam: Positive: Rate Normal, Regular Rhythm Abdomen Exam: Positive: Normal bowel sounds, Soft, Negative: Tenderness Extremity Exam: Negative: Edema Psych Exam: Positive: Oriented x 3 Assessment /Plan Problems (1) Acute respiratory failure Status: Acute Response to Treatment: Improving Discussed With: Field Party Manager, Patient Problem Specific Plan: Consult Specialist, Monitor Clinically Problem Text: Hypoxic hypercapnic respiratory failure. Saturating well on 4-5L, states her baseline is 2L. Continue to wean O2. Transition to prednisone. Continue Levaquin, Duonebs. Incentive spirometry, acapella. Gram sputum noted +yeast. D/w pulmo, fluconazole not recommended. Started LABA and spiriva. (2) COPD (chronic obstructive pulmonary disease) Status: Acute Response to Treatment: Improving Discussed With: Patient Problem Specific Plan: Monitor Clinically, Repeat Labs Problem Text: As per resp failure. (3) Dyslipidemia Status: Chronic Problem Text: Continue Lipitor. (4) HTN (hypertension) Status: Chronic Problem Specific Plan: Monitor Clinically Problem Text: Continue norvasc, lopressor. (5) Hyponatremia Status: Chronic Discussed With: Patient Problem Specific Plan: Monitor Clinically, Repeat Labs Problem Text: Asymptomatic, continue to follow. (6) Hyperkalemia Status: Resolved Problem Specific Plan: Monitor Clinically, Repeat Labs (7) Nicotine addiction Status: Chronic Discussed With: Patient Problem Text: 20 pack year history, states she quit in March 2016 Plan/VTE VTE Prophylaxis Ordered?: Yes (Lovenox) Plan Diet: Continue Current Activity: Continue Current Therapy: PT (Script for rolling walker provided.) Medications: Taper Steroids Respiratory: Wean Oxygen Diagnostics: Repeat Labs in AM Anticipated Discharge: Home VS, I&O, 24H, [facility] Vital Signs/I&O Vital Signs Date Time Temp Pulse Resp B/P Pulse Ox O2 Delivery O2 Flow Rate FiO2 10/11/16 06:00 98.1 78 20 147/77 93 Nasal Cannula 4.0 10/07/16 01:41 50 I&O- Last 24 Hours up to 6 AM 10/11/16 06:00 Intake Total 1200 ml Output Total 400 ml Balance 800 ml Laboratory Data 24H LABS Laboratory Tests 2 10/11/16 05:34: Albumin 2.5L, Blood Urea Nitrogen 14, Creatinine 0.58, Sodium Level 138, Potassium Level 4.3, Chloride Level 91L, Carbon Dioxide Level 44H, Anion Gap 3L , Calcium Level 8.5L, Glomerular Filtration Rate > 60.0, Phosphorus Level 3.9# CBC/BMP Laboratory Tests 10/11/16 05:34 Anion Gap 3 L, Red Blood Count 4.95, Mean Corpuscular Volume 89.7, Mean Corpuscular Hemoglobin 28.4, Mean Corpuscular Hemoglobin Concent 31.7 L, Red Cell Distribution Width 14.8 H Microbiology Microbiology 10/05/16 Blood Culture - Final, Complete NO GROWTH AFTER 5 DAYS 10/05/16 Blood Culture - Final, Complete NO GROWTH AFTER 5 DAYS 10/06/16 Gram Stain - Final, Complete 10/06/16 Sputum Culture - Final, Complete Yeast Like Organism 10/06/16 Respiratory Virus Panel (PCR) ([facility]) - Final, Complete CHRISTIANA VEGAS MD Oct 11, 2016 09:20
[2016-10-11] MEDS: ASPIRIN 81 MG ENTERIC TAB PO SCH (09:22)
[2016-10-11] MEDS: DOCUSATE SODIUM 100 MG CAP PO SCH ×2 (09:22→20:52)
[2016-10-11] MEDS: predniSONE 20 MG TAB PO SCH (09:23)
[2016-10-11] MEDS: amLODIPine 10 MG TAB PO SCH (09:23)
[2016-10-11] MEDS: CLOPIDOGREL 75 MG TAB PO SCH (09:23)
[2016-10-11] MEDS: ATORVASTATIN 20 MG TAB PO SCH (09:23)
[2016-10-11] MEDS: ENOXAPARIN 40 MG/0.4 ML SYRINGE (J1650) SC SCH (09:24)
[2016-10-11] MEDS: METOPROLOL TART 12.5 MG PER 1/2 TAB PO SCH ×2 (09:24→20:52)
[2016-10-11] MEDS: SODIUM CHLORIDE NASAL 0.65% SPRAY BTL (OCEAN) SCH ×2 (09:24→20:53)
[2016-10-11] MEDS: MIRALAX *UNIT DOSE* 17GM PACKET PO SCH (09:24)
[2016-10-11 14:00] VITALS: BP 160/75
[2016-10-11] MEDS: diphenhydrAMINE 50 MG CAP PO PRN (20:52)
[2016-10-11 22:00] VITALS: BP 133/79
[2016-10-12] MEDS: LevoFLOXacin 500 MG TABLET PO SCH (05:36)
[2016-10-12] MEDS: SLF 3 ML SYR IV SCH ×3 (05:37→20:51)
[2016-10-12 06:00] VITALS: BP 143/79
[2016-10-12 06:13] LABS: MEAN CORPUSCULAR HEMOGLOBIN 28.9 pg (27.0-33.0); MEAN CORPUSCULAR HGB CONC 32.1 g/dl (32.0-36.5); RED CELL DISTRIBUTION WIDTH 15.3 % (11.5-14.5); WHITE BLOOD COUNT 13.3 K/mm3 (4.0-10.0)
[2016-10-12 06:27] LABS: ALBUMIN 2.5 GM/DL (3.2-5.2); ANION GAP 6 MEQ/L (8-16); BLOOD UREA NITROGEN 12 MG/DL (7-18); CALCIUM LEVEL 8.1 MG/DL (8.8-10.2); CARBON DIOXIDE LEVEL 41 MEQ/L (21-32); CHLORIDE LEVEL 92 MEQ/L (98-107); CREATININE FOR GFR 0.58 MG/DL (0.55-1.02); GLOMERULAR FILTRATION RATE > 60.0 (>45); GLUCOSE, FASTING 78 MG/DL (80-110); PHOSPHORUS LEVEL 3.9 MG/DL (2.5-4.9); POTASSIUM SERUM 4.3 MEQ/L (3.5-5.1); SODIUM LEVEL 139 MEQ/L (136-145)
[2016-10-12] MEDS: IPRATROPIUM 0.5MG/ALBUTEROL 2.5MG INH SOL UD 3ML (DUONEB)(J7620) NEB SCH ×3 (07:18→15:11)
[2016-10-12] MEDS: TIOTROPIUM INHALER/CAPSULE (SPIRIVA) INH SCH (07:18)
[2016-10-12] MEDS: SYMBICORT 80/4.5MCG INHALER 6GM INH SCH ×2 (07:18→19:39)
[2016-10-12] MEDS: amLODIPine 10 MG TAB PO SCH (09:36)
[2016-10-12] MEDS: CLOPIDOGREL 75 MG TAB PO SCH (09:36)
[2016-10-12] MEDS: BISACODYL 5 MG TAB PO PRN (09:36)
[2016-10-12] MEDS: DOCUSATE SODIUM 100 MG CAP PO SCH ×2 (09:36→20:51)
[2016-10-12] MEDS: ATORVASTATIN 20 MG TAB PO SCH (09:37)
[2016-10-12] MEDS: ASPIRIN 81 MG ENTERIC TAB PO SCH (09:37)
[2016-10-12] MEDS: predniSONE 20 MG TAB PO SCH (09:37)
[2016-10-12] MEDS: MIRALAX *UNIT DOSE* 17GM PACKET PO SCH (09:37)
[2016-10-12] MEDS: METOPROLOL TART 12.5 MG PER 1/2 TAB PO SCH ×2 (09:37→20:51)
[2016-10-12] MEDS: SODIUM CHLORIDE NASAL 0.65% SPRAY BTL (OCEAN) SCH ×2 (09:38→20:51)
[2016-10-12] MEDS: ENOXAPARIN 40 MG/0.4 ML SYRINGE (J1650) SC SCH (09:38)
--- NOTE | 2016-10-12 09:48 | IPNPDOC ---
Subjective Date Seen The patient was seen on 10/12/16. Subjective Chief Complaint/HPI The patient is a 61-year-old female admitted with a reason for visit of Acute Respiratory Failure/Copd. General: Denies: Chills, Fatigue, Malaise, Night Sweats, Normal Appetite, Other Symptoms, ROS Unobtainable Constitutional: Denies: Chills, Fatigue, Fever, Lethargy, Malaise, Night Sweats , Other, Weakness, Weight Loss Eyes: Denies: Conjunctivae inflammation, Eyelid inflammation, Other, Pain, Redness, Vision change ENT: Denies: Dysphagia, Ear Pain, Epistaxis, Head Aches, Other Symptoms, Post Nasal Drip, Sinus Congestion, Sore Throat Skin: Denies: Breakdown, Bruising, Dry, Itching, Jaundice, Lesions, Nail Changes, Other, Rash Pulmonary: Reports: Dyspnea (Continues to improve), Denies: Cough, Other Symptoms, Pleuritic Chest Pain Cardiovascular: Denies: Chest Pain, Edema, Lt Headedness, Orthopnea, Other Symptoms, Palpitations, Paroxysmal Noc. Dyspnea Gastrointestinal: Denies: Abdominal Pain, Constipation, Diarrhea, Hematochezia , Melena, Nausea, Other Symptoms, Vomiting Genitourinary: Denies: Dysuria, Frequency, Hematuria, Incontinence, Other Symptoms, Retention Objective Physical Examination General Exam: Positive: Alert, Cooperative, No Acute Distress Eye Exam: Positive: Conjunctiva & lids normal, EOMI, PERRLA, Negative: Sclera icteric ENT Exam: Positive: Atraumatic, Mucous membr. moist/pink Neck Exam: Positive: Supple Chest Exam: Positive: Diminished, Normal air movement Heart Exam: Positive: Rate Normal, Regular Rhythm Abdomen Exam: Positive: Normal bowel sounds, Soft, Negative: Tenderness Extremity Exam: Negative: Edema Psych Exam: Positive: Oriented x 3 Assessment /Plan Problems (1) Acute respiratory failure Status: Acute Response to Treatment: Improving Discussed With: College Athletic Director, Patient Problem Specific Plan: Consult Specialist, Monitor Clinically Problem Text: Hypoxic hypercapnic respiratory failure. Saturating well on 3L, states her baseline is 2L. Continue to wean O2. Transitioned to prednisone. DC Levaquin Continue Duonebs. Incentive spirometry, acapella. Gram sputum noted +yeast. D/w pulmo, fluconazole not recommended. Started LABA and spiriva. (2) COPD (chronic obstructive pulmonary disease) Status: Acute Response to Treatment: Improving Discussed With: Patient Problem Specific Plan: Monitor Clinically, Repeat Labs Problem Text: As per resp failure. (3) Dyslipidemia Status: Chronic Problem Text: Continue Lipitor. (4) HTN (hypertension) Status: Chronic Problem Specific Plan: Monitor Clinically Problem Text: Continue norvasc, lopressor. (5) Hyponatremia Status: Chronic Discussed With: Patient Problem Specific Plan: Monitor Clinically, Repeat Labs Problem Text: Asymptomatic, continue to follow. (6) Hyperkalemia Status: Resolved Problem Specific Plan: Monitor Clinically, Repeat Labs (7) Nicotine addiction Status: Chronic Discussed With: Patient Problem Text: 20 pack year history, states she quit in March 2016 Plan/VTE VTE Prophylaxis Ordered?: Yes (Lovenox) Plan Diet: Continue Current Activity: Continue Current Therapy: PT (Script for rolling walker provided.) Medications: Taper Steroids Respiratory: Wean Oxygen Diagnostics: Repeat Labs in AM Anticipated Discharge: Home VS, I&O, 24H, [facility] Vital Signs/I&O Vital Signs Date Time Temp Pulse Resp B/P Pulse Ox O2 Delivery O2 Flow Rate FiO2 10/12/16 09:37 76 143/79 10/12/16 06:00 97.8 20 95 Nasal Cannula 3.0 10/07/16 01:41 50 I&O- Last 24 Hours up to 6 AM 10/12/16 06:00 Intake Total 1680 ml Balance 1680 ml Laboratory Data 24H LABS Laboratory Tests 2 10/12/16 05:40: Albumin 2.5L, Blood Urea Nitrogen 12, Creatinine 0.58, Sodium Level 139, Potassium Level 4.3, Chloride Level 92L, Carbon Dioxide Level 41H, Anion Gap 6L , Calcium Level 8.1L, Glomerular Filtration Rate > 60.0, Phosphorus Level 3.9 CBC/BMP Laboratory Tests 10/12/16 05:40 Anion Gap 6 L, Red Blood Count 4.65, Mean Corpuscular Volume 90.0, Mean Corpuscular Hemoglobin 28.9, Mean Corpuscular Hemoglobin Concent 32.1, Red Cell Distribution Width 15.3 H Microbiology Microbiology 10/05/16 Blood Culture - Final, Complete NO GROWTH AFTER 5 DAYS 10/05/16 Blood Culture - Final, Complete NO GROWTH AFTER 5 DAYS 10/06/16 Gram Stain - Final, Complete 10/06/16 Sputum Culture - Final, Complete Yeast Like Organism 10/06/16 Respiratory Virus Panel (PCR) ([facility]) - Final, Complete CHRISTIANA VEGAS MD Oct 12, 2016 09:48
[2016-10-12 14:00] VITALS: BP 155/61
[2016-10-12] MEDS: diphenhydrAMINE 50 MG CAP PO PRN (20:51)
[2016-10-12 22:00] VITALS: BP 132/78
[2016-10-13] MEDS: SLF 3 ML SYR IV SCH (05:01)
[2016-10-13 06:00] VITALS: BP 146/81
[2016-10-13 07:02] LABS: MEAN CORPUSCULAR HEMOGLOBIN 27.8 pg (27.0-33.0); MEAN CORPUSCULAR HGB CONC 31.4 g/dl (32.0-36.5); MEAN CORPUSCULAR VOLUME 88.6 fl (80.0-96.0); RED CELL DISTRIBUTION WIDTH 15.2 % (11.5-14.5); WHITE BLOOD COUNT 12.9 K/mm3 (4.0-10.0)
[2016-10-13 07:10] LABS: ALBUMIN 2.6 GM/DL (3.2-5.2); ANION GAP 5 MEQ/L (8-16); BLOOD UREA NITROGEN 11 MG/DL (7-18); CALCIUM LEVEL 8.5 MG/DL (8.8-10.2); CARBON DIOXIDE LEVEL 40 MEQ/L (21-32); CHLORIDE LEVEL 92 MEQ/L (98-107); CREATININE FOR GFR 0.64 MG/DL (0.55-1.02); GLOMERULAR FILTRATION RATE > 60.0 (>45); GLUCOSE, FASTING 81 MG/DL (80-110); PHOSPHORUS LEVEL 3.6 MG/DL (2.5-4.9); POTASSIUM SERUM 4.6 MEQ/L (3.5-5.1); SODIUM LEVEL 137 MEQ/L (136-145)
[2016-10-13] MEDS: SYMBICORT 80/4.5MCG INHALER 6GM INH SCH (07:11)
[2016-10-13] MEDS: IPRATROPIUM 0.5MG/ALBUTEROL 2.5MG INH SOL UD 3ML (DUONEB)(J7620) NEB SCH ×2 (07:12)
[2016-10-13] MEDS: TIOTROPIUM INHALER/CAPSULE (SPIRIVA) INH SCH (07:12)
[2016-10-13] MEDS ORDERED: PRED10PA PO (08:13)
[2016-10-13] MEDS ORDERED: TIOT18INH INH (08:13)
[2016-10-13] MEDS ORDERED: SYMB80INH INH (08:13)
[2016-10-13] MEDS: ENOXAPARIN 40 MG/0.4 ML SYRINGE (J1650) SC SCH (08:25)
[2016-10-13] MEDS: MIRALAX *UNIT DOSE* 17GM PACKET PO SCH (08:25)
[2016-10-13] MEDS: predniSONE 20 MG TAB PO SCH (08:25)
[2016-10-13] MEDS: ATORVASTATIN 20 MG TAB PO SCH (08:26)
[2016-10-13] MEDS: CLOPIDOGREL 75 MG TAB PO SCH (08:26)
[2016-10-13] MEDS: DOCUSATE SODIUM 100 MG CAP PO SCH (08:26)
[2016-10-13] MEDS: METOPROLOL TART 12.5 MG PER 1/2 TAB PO SCH (08:26)
[2016-10-13 08:27] VITALS: BP 146/81
[2016-10-13] MEDS: amLODIPine 10 MG TAB PO SCH (08:27)
[2016-10-13] MEDS: SODIUM CHLORIDE NASAL 0.65% SPRAY BTL (OCEAN) SCH (08:27)
[2016-10-13] MEDS: ASPIRIN 81 MG ENTERIC TAB PO SCH (08:27)
[2016-10-13] MEDS ORDERED: NICO14DI20 TD (10:54)
[2016-10-13] MEDS ORDERED: ANOR1AER IN (13:16)
[2016-10-13] MEDS ORDERED: ADV100INH INH (13:23)
--- NOTE | 2016-10-13 13:58 | DS.PDOC ---
Discharge Summary General Date of Admission Oct 06, 2016 at 02:53 Date of Discharge Oct 13, 2016 at 11:10 Primary Care Physician: Denisa Gutierrez N.P. Specialist/Consultants Involve: Zaida ALONSO MD Discharge Summary COMPLICATIONS/CHIEF COMPLAINT: Acute Respiratory Failure/Copd DISCHARGE DIAGNOSES: 1. ACUTEE HYPOXIC HYPERCAPNIC RESPIRATORY FAILURE 2. CHRONIC HYPONATREMIA 3. Chronic hypoxic respiratory failure - baseline 2-3L supplemental O2 SECONDARY DIAGNOSES: 1. HTN 2. COPD 3. DYSLIPIDEMIA HISTORY OF PRESENT ILLNESS/HOSPITAL COURSE: Patient is a 61-year old female presenting for shortness of breath. Patient found to be in hypoxic hypercapnic respiratory distress. Patient was admitted to ICU with pulmonology consultation for NIPPV. Patient responded well to treatment including steroid therapy, anti- microbial and nebulizer. Patient was weaned off of NIPPV, but still required 5L supplemental O2. Her baseline is 2L and she was successfully titrated one day before discharge. Patient discharged in stable condition with instructions as indicated. DISCHARGE MEDICATIONS: Please see below. ALLERGIES: Please see below. PHYSICAL EXAMINATION ON DISCHARGE: VITAL SIGNS: Please see below. GENERAL: NAD HEENT: NC/AT, EOMI, PERRL NECK: supple CARDIOVASCULAR EXAMINATION: +S1S2, RRR RESPIRATORY EXAMINATION: CTA B/L ABDOMINAL EXAMINATION: soft, NT, +BS EXTREMITIES: no edema SKIN: no rashes NEUROLOGICAL EXAMINATION: no gross focal deficits PSYCHIATRIC EXAMINATION: AAOx3 LABORATORY DATA: Please see below. DISCHARGE CONDITION: [Stable]. DISPOSITION: Discharge home. ACTIVITY: As tolerated. DIET: 2 gram sodium, COPD DISCHARGE PLAN AND INSTRUCTIONS: 1. Follow up pulmonology as scheduled. 2. Follow up PCP as scheduled. TIME SPENT ON DISCHARGE: Greater than 30 minutes. Vital Signs/I&Os Vital Signs Date Time Temp Pulse Resp B/P Pulse Ox O2 Delivery O2 Flow Rate FiO2 10/13/16 08:27 80 146/81 10/13/16 07:20 Nasal Cannula 2.0 10/13/16 06:00 98.9 18 91 10/07/16 01:41 50 I&O- Last 24 Hours up to 6 AM 10/13/16 06:00 Intake Total 720 ml Balance 720 ml Laboratory Data Labs 24H Laboratory Tests 2 10/13/16 06:31: Albumin 2.6L, Blood Urea Nitrogen 11, Creatinine 0.64, Sodium Level 137, Potassium Level 4.6, Chloride Level 92L, Carbon Dioxide Level 40H, Anion Gap 5L , Calcium Level 8.5L, Glomerular Filtration Rate > 60.0, Phosphorus Level 3.6 CBC/BMP Laboratory Tests 10/13/16 06:31 Anion Gap 5 L, Red Blood Count 4.81, Mean Corpuscular Volume 88.6, Mean Corpuscular Hemoglobin 27.8, Mean Corpuscular Hemoglobin Concent 31.4 L, Red Cell Distribution Width 15.2 H Microbiology Microbiology 10/05/16 Blood Culture - Final, Complete NO GROWTH AFTER 5 DAYS 10/05/16 Blood Culture - Final, Complete NO GROWTH AFTER 5 DAYS 10/06/16 Gram Stain - Final, Complete 10/06/16 Sputum Culture - Final, Complete Yeast Like Organism 10/06/16 Respiratory Virus Panel (PCR) ([facility]) - Final, Complete Medications Scheduled (Anoro Ellipta 62.5-25 Mcg/INH) 1 Aer Aer 1 AER IN DAILY Amlodipine Besylate (Amlodipine Besylate) 10 Mg Tab 10 MG PO DAILY (Reported) Aspirin (Aspirin) 81 Mg Tab 81 MG PO DAILY (Reported) Atorvastatin Calcium (Atorvastatin Calcium) 20 Mg Tab 20 MG PO DAILY (Reported ) Clopidogrel Bisulfate (Plavix) 75 Mg Tab 75 MG PO DAILY (Reported) Metoprolol Tartrate (Metoprolol Tartrate) 12.5 Mg Halftab 12.5 MG PO BID ( Reported) Nicotine (Nicotine 14MG Patch) 1 Patch Tdsy 1 PATCH TD DAILY Prednisone (Prednisone) 10 Mg Gianluca 10 MG PO ASDIRECTED Salmeterol/Fluticasone (Advair Diskus 100-50 Mcg/Dose) 28 Puff/Inhaler Aerp 1 PUFF INH BID Scheduled PRN Albuterol Sulfate (Albuterol Sulfate) 2.5 Mg/3 Ml Nebu 2.5 MG INH Q4H PRN PRN SOB/WHEEZING (Reported) Bisacodyl (Dulcolax) 5 Mg Tab 5 MG PO DAILY PRN PRN BOWEL CARE/CONSTIPATION ( Reported) Diphenhydramine HCl (Banophen) 50 Mg Cap 50 MG PO QHS PRN PRN SLEEP (Reported) Allergies Coded Allergies: No Known Allergies (Unverified , 03/19/16) CHRISTIANA VEGAS MD Oct 13, 2016 13:58
== END 2016-10-13 11:10 | disposition home or self-care (01) | DRG 140 ==
LOC: M ED 22:37 → M ED INP 10-06 02:53 → M ICU 10-06 03:20 → M ALC 10-08 20:35 → M MS5PR 10-10 14:58
PROVIDERS: ADMIT Hospitalist; ATTEND Internal Medicine
DX: J44.0 Chronic obstructive pulmonary disease with (acute) lower respiratory infection (principal); J96.21 Acute and chronic respiratory failure with hypoxia; J96.02 Acute respiratory failure with hypercapnia; E87.1 Hypo-osmolality and hyponatremia; I10 Essential (primary) hypertension; J20.9 Acute bronchitis, unspecified; E78.5 Hyperlipidemia, unspecified; E87.5 Hyperkalemia; Z87.891 Personal history of nicotine dependence; Z79.02 Long term (current) use of antithrombotics/antiplatelets; Z79.82 Long term (current) use of aspirin; Z79.899 Other long term (current) drug therapy

== ENCOUNTER 2016-10-22 15:43 | Inpatient (IN) | payer OTHER ==
[~2016-10-22] VITALS: Ht 165.1 cm; Wt 69.7 kg
[~2016-10-22 15:43] MED LIST changes: +ADV100INH INH; +ALBU83IN INH; +AMLO10TA2 PO; +ANOR1AER IN; +ASPI81TA7 PO; +ATOR1TAB21 PO; +DIPH50CA29 PO; +DULC5TAB PO; +METO-346 PO; +NICO14DI20 TD; +PLAV75TA38 PO; +PRED10PA PO; +SYMB80INH INH; +TIOT18INH INH
[2016-10-22] MEDS ORDERED: methylPREDNISolone INJ 125 MG/2 ML VIAL (J2930) IV ONE (17:00)
[2016-10-22 17:17] LABS: BASO % 0.3 % (0.0-1.0); EOS % 0.2 % (0.0-3.0); LARGE UNSTAINED CELL # 0.2 K/mm3 (0.0-0.4); LARGE UNSTAINED CELL % 4.7 % (0.0-4.0); LYMPH # 1.1 K/mm3 (1.5-4.5); LYMPH % 23.4 % (24.0-44.0); MEAN CORPUSCULAR HEMOGLOBIN 27.7 pg (27.0-33.0); MEAN CORPUSCULAR HGB CONC 31.1 g/dl (32.0-36.5); MEAN CORPUSCULAR VOLUME 88.9 fl (80.0-96.0); MONO # 0.2 K/mm3 (0.0-0.8); MONO % 5.3 % (0.0-5.0); NEUTROPHILS % 66.2 % (36.0-66.0); PLATELET COUNT, AUTOMATED 360 k/mm3 (150-450); RED CELL DISTRIBUTION WIDTH 15.2 % (11.5-14.5); WHITE BLOOD COUNT 4.5 K/mm3 (4.0-10.0)
[2016-10-22] MEDS: IPRATROPIUM 0.5MG/ALBUTEROL 2.5MG INH SOL UD 3ML (DUONEB)(J7620) NEB PRN ×3 (17:22→17:58)
[2016-10-22 17:23] LABS: ANION GAP 6 MEQ/L (8-16); BLOOD UREA NITROGEN 8 MG/DL (7-18); CALCIUM LEVEL 8.5 MG/DL (8.8-10.2); CARBON DIOXIDE LEVEL 38 MEQ/L (21-32); CHLORIDE LEVEL 90 MEQ/L (98-107); CREATININE FOR GFR 0.71 MG/DL (0.55-1.02); GLOMERULAR FILTRATION RATE > 60.0 (>45); GLUCOSE, FASTING 120 MG/DL (80-110); SODIUM LEVEL 134 MEQ/L (136-145)
[2016-10-22 17:38] LABS: ABG BASE EXCESS 9.9 (-2.0-2.0); ABG HCO3 38.5 MEQ/L (22.0-26.0); ABG PARTIAL PRESSURE CO2 70.7 mmHg (35.0-45.0); ABG PARTIAL PRESSURE O2 56.4 mmHg (75.0-100.0); ABG STANDARD HCO3 33.4 MEQ/L (22.0-26.0); ABG TOTAL CO2 40.7 MEQ/L (23.0-31.0); ABG pH (ARTERIAL) 7.354 UNITS (7.350-7.450)
[2016-10-22] MEDS ORDERED: ACETAMINOPHEN TAB 650MG DOSE (2X325MG) PO PRN (18:30)
[2016-10-22] MEDS ORDERED: ONDANSETRON 4 MG TAB (S0181) PO PRN (18:30)
[2016-10-22] MEDS ORDERED: IPRATROPIUM 0.5MG/ALBUTEROL 2.5MG INH SOL UD 3ML (DUONEB)(J7620) NEB PRN (18:30)
[2016-10-22] MEDS ORDERED: ONDANSETRON 4MG/2ML VIAL (J2405) IV PRN (18:30)
[2016-10-22] MEDS ORDERED: PERCOCET 5MG/325MG TAB PO PRN (18:30)
[2016-10-22] MEDS ORDERED: LEVO500T32 PO (18:35)
[2016-10-22] MEDS ORDERED: METO25TAB PO (18:35)
[2016-10-22] MEDS ORDERED: NICO14DI20 TD (18:42)
[2016-10-22] MEDS ORDERED: ANOR1AER INH (18:42)
--- NOTE | 2016-10-22 19:25 | REP ---
CHEST, TWO VIEWS: HISTORY: Cough. COMPARISON: Patchy density is present in the lower lobes consistent with bibasilar atelectasis or infiltrates, unchanged compared to the previous study. There is blunting of the left costophrenic angle due to pleural thickening or a small pleural effusion. The heart is normal in size. The pulmonary vasculature is normal in appearance. The bony structure is intact. IMPRESSION: 1. Bibasilar atelectasis or infiltrates unchanged compared to the previous study. 2. Blunting of the left costophrenic angle due to pleural thickening or a small pleural effusion. Signed by Dickson Pierce MD 10/22/2016 07:25 P
--- NOTE | 2016-10-22 19:40 | REPUSA ---
CLINICAL HISTORY: Pain. TECHNIQUE: Multiple axial CT images were obtained through chest without IV contrast material. COMMENTS: There is no evidence of pleural or parenchymal-based mass. Trace right and left pleural effusions ar e present. There are patchy nodular opacities noted in the right middle lobe lingula as well as both lower lobes. This may represent pneumonia. However malignant process is not totally excluded. Con flower arranger further evaluation with CT of the chest, abdomen and pelvis with IV contrast. 4 mm nodule is n oted in the right middle lobe. There is no evidence of hilar or mediastinal lymphadenopathy. The heart and great vessels are within normal limits. The visualized portions of the liver are of uniform attenuation without mass or defect. There is no intra or extrahepatic biliary ductal dilatation. The spleen is unremarkable. The visualized pancrea s is of normal contour and attenuation characteristics. There is no evidence of adrenal mass. The v isualized portions of the kidneys present no abnormalities. The bony structures are free of lytic or blastic lesions. Multilevel degenerative changes are seen i nvolving the thoracic spine. Scattered calcifications are seen involving the aorta and visualized kim or branches compatible with atherosclerosis. IMPRESSION: Trace right and left pleural effusions are present. There are patchy nodular opacities noted in the right middle lobe lingula as well as both lower lobes. This may represent pneumonia. However malign ant process is not totally excluded. Consider further evaluation with CT of the chest, abdomen and p stephany with IV contrast. 4 mm nodule is noted in the right middle lobe Thank you for your kind referral of this patient. We appreciate the opportunity to participate in th is patient's care.
--- NOTE | 2016-10-22 20:15 | HPEPDOC ---
Medical History and Physical Date of Admission Oct 22, 2016 at 18:23 History and Physical HISTORY AND PHYSICAL Date of admission: 10/22/2016 PCP: Denisa Gutierrez Chief complaint: I was so short of breath and couldn't talk HPI: 61-year-old female with COPD on 2 L home O2, hyperlipidemia, hypertension who presented with shortness of breath. She states that she was admitted to the hospital approximately 2 weeks ago, and review of records reveals acute respiratory failure thought to be secondary to a COPD exacerbation with possible pneumonia. She did well for a little bit after going home, but approximately one week ago she started to cough. On Thursday, she was really feeling poorly, so she went to her PCP, who prescribed her Levaquin. Today she was so short of breath that she couldn't talk, so she decided to come to the emergency department. She states that she tried her home nebulizers, and this helped a little bit. Past medical history: COPD on 2 L home O2, hyperlipidemia, hypertension Past surgical history: None Family history: COPD, heart disease Social history: Patient currently lives with a roommate. She quit smoking approximately 9 months ago. She denies any alcohol use Allergies: No known drug allergies Review of systems: General: Negative for fever and chills Eyes: Negative for vision changes and ocular discharge ENT: Negative For sore throat and nose bleed Cardiovascular: Negative for chest pain and palpitations Respiratory: Positive for shortness of breath and cough GI: Negative for nausea, vomiting, diarrhea Musculoskeletal: Negative for neck and back pain Skin: Negative for rash Neuro: Negative for headache, dizziness, numbness, tingling Psych: Negative for depression and suicidal ideation Endocrine: Negative for polyuria : Negative for dysuria Heme: Negative for bleeding Home meds: See below Physical exam: Vital signs: Vital Sign - Last 24 Hours 10/22/16 10/22/16 10/22/16 10/22/16 15:45 16:02 16:02 16:09 Temp 100.6 100.6 Pulse 104 104 Resp 16 16 B/P 132/73 132/73 Pulse Ox 79 79 O2 Delivery Room Air Nasal Cannula Nasal Cannula O2 Flow Rate 2 2 4 10/22/16 10/22/16 10/22/16 10/22/16 16:09 16:13 16:19 16:28 Pulse 92 98 Pulse Ox 84 87 88 O2 Delivery Nasal Cannula Nasal Cannula O2 Flow Rate 4 5 10/22/16 10/22/16 10/22/16 10/22/16 16:43 16:58 17:13 17:15 Pulse 98 96 94 110 Pulse Ox 85 87 10/22/16 10/22/16 10/22/16 10/22/16 17:28 17:30 17:30 17:43 Pulse 98 110 105 102 Resp 16 Pulse Ox 88 10/22/16 10/22/16 10/22/16 10/22/16 17:59 18:02 18:09 18:13 Pulse 105 120 122 120 Resp 16 20 Pulse Ox 87 10/22/16 10/22/16 10/22/16 10/22/16 18:28 18:43 18:58 19:13 Pulse 124 108 116 102 Pulse Ox 89 90 89 93 10/22/16 10/22/16 10/22/16 10/22/16 19:28 19:43 19:44 19:59 Pulse 104 100 100 96 Pulse Ox 93 88 88 92 10/22/16 10/22/16 20:03 20:04 Temp 99.9 Pulse 101 Resp 20 B/P 130/72 130/72 Pulse Ox 92 O2 Delivery Nasal Cannula O2 Flow Rate 5 Gen.: awake, alert, no acute distress Eyes: Extraocular movements intact, normal sclera ENT: Moist mucous membranes Cardiovascular: RRR, no murmurs rubs or gallops Lungs: dimished and tight; no distinct wheeze Abdomen: Soft, NT/ND, normal BS Musculoskeletal: normal range of motion Extremities: No peripheral edema Neuro: alert and oriented 3, normal speech, no focal deficits Psych: Normal mood with congruent affect Labs and radiology: See below White count is 4.5 BMP, troponin, BNP, lactate are all unremarkable Blood cultures pending CT of the chest shows nodules in the right middle lobe, lingula, and bilateral lower lobes. This represents pneumonia versus malignancy. A CT of the abdomen and pelvis and chest with IV contrast are recommended 7.//56 Assessment and plan: 61-year-old female with COPD on 2 L home O2, hypertension, hyperlipidemia who is admitted with acute on chronic respiratory distress. 1. Acute on chronic respiratory distress: Etiology is not entirely clear at this time. Appears the patient is probably having a COPD exacerbation, given her tightness and poor air movement. For this, we'll continue her on Solu-Medrol , and DuoNeb's. However, her CT shows a possibility of pneumonia or malignancy. Given that she does have a fever of 100.6, I will treat her for an HCAP with vancomycin, Zosyn, and Levaquin. Blood cultures are pending, and we will also get sputum cultures. We will order a CT of the abdomen, pelvis, chest with contrast for further evaluation of these nodules. Her pH is currently on the lower end of normal but still normal. Although her PCO2 is 70, upon review of the EMR, her PCO2 the entire recent admission was close to 100, and was only down to 60 when she was discharged. We will repeat an ABG in the morning. 2. COPD: See above. We also will substitute Advair for the patient's home maintenance inhaler which we do not have on formulary. 3. Hypertension: Continue home Norvasc and metoprolol. 4. Hyperlipidemia: Continue home statin. 5. Plavix use: The patient is unable to explain to me why she takes Plavix. As far she knows, she has not had any heart disease or stroke. At this time, we will continue it as it is listed on her home med rec on the recent admission and this admission, but this needs to be clarified with her primary care physician. DVT prophylaxis: Lovenox Dispo: admit as an inpatient to the service of Dr. Huertas CODE STATUS: Full code Vital Signs See above Laboratory Data Labs 24H Laboratory Tests 2 10/22/16 16:04: Anion Gap 6L, B-Type Natriuretic Peptide 22.1, White Blood Count 4.5, Red Blood Count 5.43H, Hemoglobin 15.0, Hematocrit 48.3H, Mean Corpuscular Volume 88.9, Mean Corpuscular Hemoglobin 27.7, Mean Corpuscular Hemoglobin Concent 31.1L, Red Cell Distribution Width 15.2H, Platelet Count 360, Neutrophils (%) (Auto) 66.2H, Lymphocytes (%) (Auto) 23.4L, Monocytes (%) (Auto) 5.3H, Eosinophils (%) (Auto) 0.2, Basophils (%) (Auto) 0.3, Neutrophils # (Auto) 3.0, Lymphocytes # ( Auto) 1.1L, Monocytes # (Auto) 0.2, Eosinophils # (Auto) 0.0, Basophils # (Auto ) 0.0, Blood Urea Nitrogen 8, Creatinine 0.71, Sodium Level 134L, Potassium Level 4.0, Chloride Level 90L, Carbon Dioxide Level 38H, Calcium Level 8.5L, Total Creatine Kinase 41, Creatine Kinase MB 1.0, Creatine Kinase MB Relative Index 2.43, Glomerular Filtration Rate > 60.0, Large Unclassified Cells # 0.2, Large Unclassified Cells % 4.7H, Troponin I < 0.02 10/22/16 17:17: Lactic Acid (Sepsis) 0.9 10/22/16 17:21: Arterial Blood pH 7.354, Arterial Blood Partial Pressure CO2 70.7*H, Arterial Blood Partial Pressure O2 56.4L, Arterial Blood Total CO2 40.7H, Arterial Blood HCO3 38.5H, Arterial Blood Base Excess 9.9H, Arterial Blood Oxygen Saturation 88.2L, Blood Gas Bicarbonate Standard 33.4H CBC/BMP Laboratory Tests 10/22/16 16:04 Calcium Level 8.5 L, Total Creatine Kinase 41, Red Blood Count 5.43 H, Mean Corpuscular Volume 88.9, Mean Corpuscular Hemoglobin 27.7, Mean Corpuscular Hemoglobin Concent 31.1 L, Red Cell Distribution Width 15.2 H, Neutrophils (%) ( Auto) 66.2 H, Lymphocytes (%) (Auto) 23.4 L, Monocytes (%) (Auto) 5.3 H, Eosinophils (%) (Auto) 0.2, Basophils (%) (Auto) 0.3, Neutrophils # (Auto) 3.0, Lymphocytes # (Auto) 1.1 L, Monocytes # (Auto) 0.2, Eosinophils # (Auto) 0.0, Basophils # (Auto) 0.0 Microbiology Microbiology 10/22/16 Blood Culture, Received Pending 10/22/16 Blood Culture, Received Pending Home Medications Scheduled (Anoro Ellipta 62.5-25 Mcg/INH) 1 Aer Aer 1 AER INH DAILY Amlodipine Besylate (Amlodipine Besylate) 10 Mg Tab 10 MG PO DAILY Aspirin (Aspirin) 81 Mg Tab 81 MG PO DAILY Atorvastatin Calcium (Atorvastatin Calcium) 20 Mg Tab 20 MG PO QHS Clopidogrel Bisulfate (Plavix) 75 Mg Tab 75 MG PO QHS Levofloxacin Hemihydrate (Levofloxacin) 500 Mg Tab 500 MG PO DAILY 10 DAY COURSE STARTED 10/20 Metoprolol Tartrate (Metoprolol Tartrate) 25 Mg Tab 25 MG PO BID Nicotine (Nicotine 14MG Patch) 1 Patch Tdsy 1 PATCH TD DAILY Scheduled PRN Albuterol Sulfate (Albuterol Sulfate) 2.5 Mg/3 Ml Nebu 2.5 MG INH Q4H PRN PRN SOB/WHEEZING Bisacodyl (Dulcolax) 5 Mg Tab 5 MG PO DAILY PRN PRN BOWEL CARE/CONSTIPATION Diphenhydramine HCl (Banophen) 50 Mg Cap 50 MG PO QHS PRN PRN SLEEP Allergies Coded Allergies: No Known Allergies (Unverified , 03/19/16) JON SCOTT Oct 22, 2016 20:15
[2016-10-22] MEDS ORDERED: ISOVUE-370 76% 100ML VIAL (Q9967) As Ordered ONE (20:30)
[2016-10-22 20:45] VITALS: BP 136/63
[2016-10-22] MEDS: IPRATROPIUM 0.5MG/ALBUTEROL 2.5MG INH SOL UD 3ML (DUONEB)(J7620) NEB SCH ×2 (20:59→21:20)
[2016-10-22] MEDS: ADVAIR DISKUS 100/50 INH PWD INH SCH (21:00)
[2016-10-22] MEDS ORDERED: SLF 3 ML SYR IV PRN (21:30)
[2016-10-22] MEDS: ATORVASTATIN 20 MG TAB PO SCH (21:44)
[2016-10-22] MEDS: PIPERACILLIN/TAZOBACTAM SOD 3.375 GM in D5W MINI-BAG PLUS 50 ML IV SCH (21:44)
[2016-10-22] MEDS: CLOPIDOGREL 75 MG TAB PO SCH (21:44)
[2016-10-22] MEDS: METOPROLOL TART 25 MG TABLET PO SCH (21:44)
[2016-10-22] MEDS: SLF 3 ML SYR IV SCH (23:12)
[2016-10-22] MEDS: LevoFLOXacin IV 750 MG in APPROPRIATE DILUENT 1 EA IV SCH (23:12)
--- NOTE | 2016-10-22 23:41 | PHACANCOPD ---
PHARMACY VANCOMYCIN DOSING Pt Demographics Demographics Patient Age:61 , Weight:68.900 , Gender: female Adjusted Body Weight Events Past 24 Hours Events Past 24 Hours: NO: Change in CrCl, Dialysis, Diuretic Therapy, Elevation in WBC, Fever, Other, Pending Diagnostics, Pending Procedures Vancomycin Vancomycin Target Ranges: 15-20 mcg/ml Vancomycin Load Y/N: Yes Load Dose Date Time Vancomycin Load Dose: 1.5GM Date: 10/23/16 Time: 01:00 Vancomycin Dose Date: 10/23/16. Current Vancomycin Dose: [1GM IV Q12H starting at 8AM] Intermittent Dosing?: No Labs Labs Laboratory Tests 10/22/16 16:04 Calcium Level 8.5 L, Total Creatine Kinase 41, Red Blood Count 5.43 H, Mean Corpuscular Volume 88.9, Mean Corpuscular Hemoglobin 27.7, Mean Corpuscular Hemoglobin Concent 31.1 L, Red Cell Distribution Width 15.2 H, Neutrophils (%) ( Auto) 66.2 H, Lymphocytes (%) (Auto) 23.4 L, Monocytes (%) (Auto) 5.3 H, Eosinophils (%) (Auto) 0.2, Basophils (%) (Auto) 0.3, Neutrophils # (Auto) 3.0, Lymphocytes # (Auto) 1.1 L, Monocytes # (Auto) 0.2, Eosinophils # (Auto) 0.0, Basophils # (Auto) 0.0 Micro Microbiology 10/22/16 Blood Culture, Received Pending 10/22/16 Blood Culture, Received Pending Creatinine Clearance Date:10/22/16. Creatinine Clearance: [>60 ml/min]. Assessment and Plan Maintaining Current Dose?: Yes Reason for dose change: Other Pharmacist Note Pharmacist Note Date: 10/23/16. Pharm.D. note: 29.YO FEMALE, 65" in HEIGHT, 68.9KG in WEIGHT, ADMITTED WITH HCAP ZOSYN 3.375GM IV Q6H, LEVAQUIN 750MG IV Q24H AND VANCO PER Rx. INITIATE VANCO 1.5GM LOAD @ 01:00 FOLLOWED BY 1GM IV Q12H STARTING AT 08:00 A VANCO TR WILL BE ORDERED WHEN PATIENT IS AT [facility] Oct 22, 2016 23:41
[2016-10-22 23:59] VITALS: BP 125/71
[2016-10-23] MEDS ORDERED: VANCOMYCIN HCL 1,000 MG, VIAL MATE ADAPTER 1 EACH in D5W 250 ML IV ONE (01:00)
[2016-10-23] MEDS: methylPREDNISolone INJ 125 MG/2 ML VIAL (J2930) IV SCH ×2 (01:10→08:57)
[2016-10-23] MEDS: IPRATROPIUM 0.5MG/ALBUTEROL 2.5MG INH SOL UD 3ML (DUONEB)(J7620) NEB SCH ×4 (01:39→20:00)
[2016-10-23] MEDS ORDERED: VANCOMYCIN HCL 500 MG in D5W MINI-BAG PLUS 100 ML IV ONE (02:00)
[2016-10-23] MEDS: SLF 3 ML SYR IV SCH ×3 (02:18→22:43)
[2016-10-23] MEDS: PIPERACILLIN/TAZOBACTAM SOD 3.375 GM in D5W MINI-BAG PLUS 50 ML IV SCH ×4 (02:18→21:05)
[2016-10-23 04:45] VITALS: BP 116/62
[2016-10-23 06:14] LABS: BASO % 0.4 % (0.0-1.0); EOS % 0.7 % (0.0-3.0); LARGE UNSTAINED CELL # 0.1 K/mm3 (0.0-0.4); LARGE UNSTAINED CELL % 3.2 % (0.0-4.0); LYMPH # 0.6 K/mm3 (1.5-4.5); LYMPH % 15.7 % (24.0-44.0); MEAN CORPUSCULAR HEMOGLOBIN 28.3 pg (27.0-33.0); MEAN CORPUSCULAR HGB CONC 31.6 g/dl (32.0-36.5); MEAN CORPUSCULAR VOLUME 89.3 fl (80.0-96.0); MONO # 0.1 K/mm3 (0.0-0.8); MONO % 3.5 % (0.0-5.0); NEUTROPHILS # 2.3 K/mm3 (1.8-7.7); NEUTROPHILS % 76.6 % (36.0-66.0); PLATELET COUNT, AUTOMATED 299 k/mm3 (150-450); RED CELL DISTRIBUTION WIDTH 15.2 % (11.5-14.5); WHITE BLOOD COUNT 2.9 K/mm3 (4.0-10.0)
[2016-10-23 06:17] LABS: ABG PARTIAL PRESSURE CO2 57.9 mmHg (35.0-45.0); ABG pH (ARTERIAL) 7.346 UNITS (7.350-7.450)
[2016-10-23 06:18] LABS: ABG BASE EXCESS 3.7 (-2.0-2.0); ABG STANDARD HCO3 27.7 MEQ/L (22.0-26.0); ABG TOTAL CO2 32.7 MEQ/L (23.0-31.0)
[2016-10-23 06:34] LABS: ANION GAP 8 MEQ/L (8-16); BLOOD UREA NITROGEN 11 MG/DL (7-18); CARBON DIOXIDE LEVEL 33 MEQ/L (21-32); CHLORIDE LEVEL 93 MEQ/L (98-107); CREATININE FOR GFR 0.65 MG/DL (0.55-1.02); GLOMERULAR FILTRATION RATE > 60.0 (>45); GLUCOSE, FASTING 226 MG/DL (80-110); POTASSIUM SERUM 4.5 MEQ/L (3.5-5.1); SODIUM LEVEL 134 MEQ/L (136-145)
[2016-10-23] MEDS ORDERED: GASTROGRAFIN SOLUTION 30ML PO ONE (07:00)
[2016-10-23] MEDS ORDERED: ISOVUE-370 76% 100ML VIAL (Q9967) XX SCH (07:30)
[2016-10-23] MEDS ORDERED: GASTROGRAFIN SOLUTION 30ML (Q9963) PO ONE (07:30)
[2016-10-23 08:00] VITALS: BP 129/67
[2016-10-23] MEDS: ADVAIR DISKUS 100/50 INH PWD INH SCH ×2 (08:10→21:00)
--- NOTE | 2016-10-23 08:12 | PHACANCOPD ---
PHARMACY VANCOMYCIN DOSING Pt Demographics Demographics Patient Age:61 , Weight:68.900 , Gender: female Adjusted Body Weight Vancomycin Vancomycin indication: hcap Vancomycin Target Ranges: 15-20 mcg/ml Vancomycin Load Y/N: Yes Load Dose Date Time Vancomycin Load Dose: 1.5GM Date: 10/23/16 Time: 01:00 Vancomycin Dose Date: 10/23/16. Current Vancomycin Dose: [1GM IV Q12H starting at 8AM] Intermittent Dosing?: No Labs Micro Microbiology 10/22/16 Blood Culture, Received Pending 10/22/16 Blood Culture, Received Pending Creatinine Clearance Date:10/22/16. Creatinine Clearance: [>60 ml/min]. Assessment and Plan Maintaining Current Dose?: Yes Reason for dose change: No Dose Change Pharmacist Note Pharmacist Note 10/24/16: I have scheduled a trough level to be drawn 10/24/16 @1900 prior to the 5th dose. We will continue to monitor and make adjustments accordingly. Date: 10/23/16. Pharm.D. note: 29.YO FEMALE, 65" in HEIGHT, 68.9KG in WEIGHT, ADMITTED WITH HCAP ZOSYN 3.375GM IV Q6H, LEVAQUIN 750MG IV Q24H AND VANCO PER Rx. INITIATE VANCO 1.5GM LOAD @ 01:00 FOLLOWED BY 1GM IV Q12H STARTING AT 08:00 A VANCO TR WILL BE ORDERED WHEN PATIENT IS AT [facility] Oct 23, 2016 08:12
[2016-10-23] MEDS ORDERED: ISOVUE-370 76% 100ML VIAL (Q9967) As Ordered ONE (08:31)
[2016-10-23] MEDS: VANCOMYCIN HCL 1,000 MG, VIAL MATE ADAPTER 1 EACH in D5W 250 ML IV SCH ×2 (08:57→19:54)
[2016-10-23] MEDS: amLODIPine 10 MG TAB PO SCH (08:58)
[2016-10-23] MEDS: NICOTINE 14 MG/24 HR TRANSDERMAL TD SCH (08:58)
[2016-10-23] MEDS: ENOXAPARIN 40 MG/0.4 ML SYRINGE (J1650) SC SCH (08:58)
[2016-10-23] MEDS: METOPROLOL TART 25 MG TABLET PO SCH ×2 (08:58→20:29)
[2016-10-23] MEDS: ASPIRIN 81 MG ENTERIC TAB PO SCH (08:58)
--- NOTE | 2016-10-23 11:17 | REP ---
CT abdomen and pelvis without and with IV contrast: With oral contrast. History: Lung nodules. Assess for malignancy. CT contrast dose: 100 ml of Isovue [address] findings: Preliminary digital manhole stripper radiograph shows an unremarkable gas pattern in the abdomen. The liver is normal in size and homogeneous in texture on pre and postcontrast imaging. There is bilateral lower lobe atelectatic change which will be described in the CT chest study report. No adrenal lesion is seen on either side. No pancreatic abnormality is observed. The gallbladder is unremarkable. The kidneys enhance symmetrically and are morphologically intact. No retroperitoneal mass or adenopathy is seen. Normal caliber aorta is noted. Some vascular calcification is seen. A normal appendix is visible just medial to the cecum. Uterus is tipped to the right. No adnexal mass or cyst is seen. Urinary bladder is intact. No free fluid is noted. Small and large intestinal bowel loops are unremarkable. No bony destructive lesion is appreciated. Impression: Vascular calcification. No acute intra-abdominal abnormality. No mass lesion is seen. Signed by Rolo Lugo MD 10/23/2016 01:14 P
--- NOTE | 2016-10-23 11:23 | REP ---
CT study with IV contrast: History: Lung nodules. Assess for malignancy. Comparison is made with noncontrast chest CT study from October 22, 2016. CT contrast dose: 100 mL of Isovue [address] findings: There are very small slivers of pleural fluid at the posterior lung gutter bilaterally. There is some subsegmental discoid atelectasis in the lower lobes bilaterally, left a little more extensively than right. This is actually a little more prominent than on yesterday's CT and may reflect inflammatory change. This also involves the lingula and right middle lobe in addition to both lower lobes. There are scattered right hilar and mediastinal lymph nodes which are normal in size. No adenopathy is seen. There is a 4 mm nodule in the right middle lobe which may be partially calcified. There is a less than solid 4 mm nodule in the right lower lobe on image #64 of 103 of today's study. Lastly, there is a ill-defined area of pleural thickening at the base of the major fissure on the right projecting and simulating a right middle lobe nodule. Impression: Patchy bilateral atelectatic changes and consolidation changes a little more prominent today than on yesterday's CT. Left greater than right. This is compatible with pulmonary inflammatory or infectious disease. There are two 4 mm nodules noted, one of the middle lobe and one of the lower lobe on the right side. A very small amount of pleural fluid is visible in the posterior pleural angles. No other significant finding. Follow-up chest CT study recommended in 6-12 months. Signed by Rolo Lugo MD 10/23/2016 01:14 P
[2016-10-23 12:00] VITALS: BP_SYST 129; BP_SYST 132; BP_DIAS 67; BP_DIAS 77
--- NOTE | 2016-10-23 13:41 | IPNPDOC ---
Subjective Date Seen The patient was seen on 10/23/16. Subjective Chief Complaint/HPI The patient is a 61-year-old female admitted with a reason for visit of Acute Respiratory Failure. General: Denies: Chills Constitutional: Denies: Chills, Fever Eyes: Denies: Pain, Vision change ENT: Denies: Ear Pain, Head Aches Skin: Denies: Lesions, Rash Pulmonary: Reports: Cough, Dyspnea Cardiovascular: Denies: Chest Pain, Palpitations Gastrointestinal: Denies: Nausea, Vomiting Genitourinary: Denies: Dysuria, Frequency Hematologic: Denies: Bleeding Excessively, Bruising Objective Physical Examination General Exam: Positive: Alert, Cooperative, No Acute Distress ENT Exam: Positive: Atraumatic, Mucous membr. moist/pink Chest Exam: Positive: Diminished, Negative: Normal air movement (Decreased air movement), Rales, Rhonchi Heart Exam: Positive: Normal S1, Normal S2, Rate Normal Abdomen Exam: Positive: Soft, Negative: Tenderness Extremity Exam: Negative: Swelling, Tenderness Assessment /Plan Plan/VTE VTE Prophylaxis Ordered?: Yes Plan Acute on Chronic Hypoxic Respiratory Failure: 2/2 COPD Exacerbation, HCAP CT Chest + Abdomen/Pelvis noted from this AM-->Inflammatory process consistent with PNA and Two 4mm Nodules noted We will continue the patient on empiric antibiotic therapy for now Solu-Medrol down-tapered to 40mg q12H, cont DuoNeb's. Blood cultures, sputum cultures, and Respiratory Panel pending ABG noted from this AM We will continue to down-titrate the patient's oxygen requirement as tolerated Cont to monitor Respiratory Status COPD Cont Advair, Steroids, Nebs as noted above Hypertension Continue Norvasc and metoprolol. Hyperlipidemia Continue statin. History of tobacco use I have extensively discussed with the patient the need for her to abstain from any tobacco use given her COPD requiring 2 L of oxygen, frequent admissions to the hospital for decompensation of COPD; including significant CO2 retention during her most recent admission and poor long-term prognosis. I also discussed the possibility of the patient possibly needing to be intubated in the future if her respiratory status further decompensates. At this time, the patient states that she would like to be a full code. DVT prophylaxis Lovenox Disposition: We will continue to monitor the patient's respiratory status as we attempt to down taper her oxygen requirements, and de-escalate her antibiotic therapy as tolerated. VS, I&O, 24H, [facility] Vital Signs/I&O Vital Signs Date Time Temp Pulse Resp B/P Pulse Ox O2 Delivery O2 Flow Rate FiO2 10/23/16 12:00 97.6 82 20 132/77 90 Nasal Cannula 4.0 I&O- Last 24 Hours up to 6 AM 10/23/16 06:00 Intake Total 200 ml Output Total 0 ml Balance 200 ml Laboratory Data 24H LABS Laboratory Tests 2 10/22/16 16:04: Anion Gap 6L, B-Type Natriuretic Peptide 22.1, White Blood Count 4.5, Red Blood Count 5.43H, Hemoglobin 15.0, Hematocrit 48.3H, Mean Corpuscular Volume 88.9, Mean Corpuscular Hemoglobin 27.7, Mean Corpuscular Hemoglobin Concent 31.1L, Red Cell Distribution Width 15.2H, Platelet Count 360, Neutrophils (%) (Auto) 66.2H, Lymphocytes (%) (Auto) 23.4L, Monocytes (%) (Auto) 5.3H, Eosinophils (%) (Auto) 0.2, Basophils (%) (Auto) 0.3, Neutrophils # (Auto) 3.0, Lymphocytes # ( Auto) 1.1L, Monocytes # (Auto) 0.2, Eosinophils # (Auto) 0.0, Basophils # (Auto ) 0.0, Blood Urea Nitrogen 8, Creatinine 0.71, Sodium Level 134L, Potassium Level 4.0, Chloride Level 90L, Carbon Dioxide Level 38H, Calcium Level 8.5L, Total Creatine Kinase 41, Creatine Kinase MB 1.0, Creatine Kinase MB Relative Index 2.43, Glomerular Filtration Rate > 60.0, Large Unclassified Cells # 0.2, Large Unclassified Cells % 4.7H, Troponin I < 0.02 10/22/16 17:17: Lactic Acid (Sepsis) 0.9 10/22/16 17:21: Arterial Blood pH 7.354, Arterial Blood Partial Pressure CO2 70.7*H, Arterial Blood Partial Pressure O2 56.4L, Arterial Blood Total CO2 40.7H, Arterial Blood HCO3 38.5H, Arterial Blood Base Excess 9.9H, Arterial Blood Oxygen Saturation 88.2L, Blood Gas Bicarbonate Standard 33.4H 10/23/16 05:45: Anion Gap 8, White Blood Count 2.9L, Red Blood Count 4.74, Hemoglobin 13.4, Hematocrit 42.4, Mean Corpuscular Volume 89.3, Mean Corpuscular Hemoglobin 28.3 , Mean Corpuscular Hemoglobin Concent 31.6L, Red Cell Distribution Width 15.2H, Platelet Count 299, Neutrophils (%) (Auto) 76.6H, Lymphocytes (%) (Auto) 15.7L, Monocytes (%) (Auto) 3.5, Eosinophils (%) (Auto) 0.7, Basophils (%) (Auto) 0.4, Neutrophils # (Auto) 2.3, Lymphocytes # (Auto) 0.6L, Monocytes # (Auto) 0.1, Eosinophils # (Auto) 0.0, Basophils # (Auto) 0.0, Blood Urea Nitrogen 11, Creatinine 0.65, Sodium Level 134L, Potassium Level 4.5, Chloride Level 93L, Carbon Dioxide Level 33H, Calcium Level 8.0L, Glomerular Filtration Rate > 60.0 , Large Unclassified Cells # 0.1, Large Unclassified Cells % 3.2, Magnesium Level 2.0 10/23/16 05:46: Arterial Blood pH 7.346L, Arterial Blood Partial Pressure CO2 57.9H, Arterial Blood Partial Pressure O2 70.0L, Arterial Blood Total CO2 32.7H, Arterial Blood HCO3 31.0H, Arterial Blood Base Excess 3.7H, Arterial Blood Oxygen Saturation 93.7L, Blood Gas Bicarbonate Standard 27.7H CBC/BMP Laboratory Tests 10/22/16 16:04 Calcium Level 8.5 L, Total Creatine Kinase 41, Red Blood Count 5.43 H, Mean Corpuscular Volume 88.9, Mean Corpuscular Hemoglobin 27.7, Mean Corpuscular Hemoglobin Concent 31.1 L, Red Cell Distribution Width 15.2 H, Neutrophils (%) ( Auto) 66.2 H, Lymphocytes (%) (Auto) 23.4 L, Monocytes (%) (Auto) 5.3 H, Eosinophils (%) (Auto) 0.2, Basophils (%) (Auto) 0.3, Neutrophils # (Auto) 3.0, Lymphocytes # (Auto) 1.1 L, Monocytes # (Auto) 0.2, Eosinophils # (Auto) 0.0, Basophils # (Auto) 0.0 10/23/16 05:45 Calcium Level 8.0 L, Red Blood Count 4.74, Mean Corpuscular Volume 89.3, Mean Corpuscular Hemoglobin 28.3, Mean Corpuscular Hemoglobin Concent 31.6 L, Red Cell Distribution Width 15.2 H, Neutrophils (%) (Auto) 76.6 H, Lymphocytes (%) ( Auto) 15.7 L, Monocytes (%) (Auto) 3.5, Eosinophils (%) (Auto) 0.7, Basophils (% ) (Auto) 0.4, Neutrophils # (Auto) 2.3, Lymphocytes # (Auto) 0.6 L, Monocytes # (Auto) 0.1, Eosinophils # (Auto) 0.0, Basophils # (Auto) 0.0 Microbiology Microbiology 10/22/16 Blood Culture, Received Pending 10/22/16 Blood Culture, Received Pending SEBASTIAN HURT MD Oct 23, 2016 13:41
[2016-10-23 16:00] VITALS: BP 131/63
[2016-10-23 19:58] VITALS: BP 141/74
--- NOTE | 2016-10-23 20:18 | ECGEPIP ---
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
[2016-10-23] MEDS: ATORVASTATIN 20 MG TAB PO SCH (20:29)
[2016-10-23] MEDS: CLOPIDOGREL 75 MG TAB PO SCH (20:29)
[2016-10-23] MEDS: methylPREDNISolone INJ 40 MG/1 ML VIAL (J2920) IV SCH (20:29)
[2016-10-23] MEDS ORDERED: methylPREDNISolone INJ 125 MG/2 ML VIAL (J2930) IV SCH (21:00)
[2016-10-23] MEDS: diphenhydrAMINE 50 MG CAP PO PRN (21:05)
[2016-10-23] MEDS: LevoFLOXacin IV 750 MG in APPROPRIATE DILUENT 1 EA IV SCH (22:39)
[2016-10-23] MEDS: OSELTAMIVIR PHOSPHATE 75 MG CAP (TAMIFLU) PO SCH (22:48)
[2016-10-23 23:58] VITALS: BP 128/74
[2016-10-24] MEDS: IPRATROPIUM 0.5MG/ALBUTEROL 2.5MG INH SOL UD 3ML (DUONEB)(J7620) NEB SCH ×4 (02:00→20:00)
[2016-10-24 03:31] VITALS: BP 139/81
[2016-10-24] MEDS: PIPERACILLIN/TAZOBACTAM SOD 3.375 GM in D5W MINI-BAG PLUS 50 ML IV SCH (03:32)
[2016-10-24] MEDS: SLF 3 ML SYR IV SCH ×3 (03:33→21:15)
[2016-10-24 06:12] LABS: BASO % 0.4 % (0.0-1.0); EOS % 0.4 % (0.0-3.0); LARGE UNSTAINED CELL # 0.3 K/mm3 (0.0-0.4); LARGE UNSTAINED CELL % 3.8 % (0.0-4.0); LYMPH % 9.9 % (24.0-44.0); MEAN CORPUSCULAR HEMOGLOBIN 27.9 pg (27.0-33.0); MEAN CORPUSCULAR HGB CONC 31.8 g/dl (32.0-36.5); MEAN CORPUSCULAR VOLUME 87.6 fl (80.0-96.0); MONO # 0.3 K/mm3 (0.0-0.8); MONO % 4.2 % (0.0-5.0); NEUTROPHILS # 6.2 K/mm3 (1.8-7.7); NEUTROPHILS % 81.3 % (36.0-66.0); PLATELET COUNT, AUTOMATED 303 k/mm3 (150-450); RED CELL DISTRIBUTION WIDTH 15.2 % (11.5-14.5); WHITE BLOOD COUNT 7.6 K/mm3 (4.0-10.0)
[2016-10-24 06:29] LABS: ANION GAP 9 MEQ/L (8-16); BLOOD UREA NITROGEN 10 MG/DL (7-18); CALCIUM LEVEL 8.5 MG/DL (8.8-10.2); CARBON DIOXIDE LEVEL 36 MEQ/L (21-32); CHLORIDE LEVEL 93 MEQ/L (98-107); CREATININE FOR GFR 0.73 MG/DL (0.55-1.02); GLOMERULAR FILTRATION RATE > 60.0 (>45); GLUCOSE, FASTING 238 MG/DL (80-110); POTASSIUM SERUM 4.2 MEQ/L (3.5-5.1); SODIUM LEVEL 138 MEQ/L (136-145)
[2016-10-24 07:25] VITALS: BP 143/80
[2016-10-24] MEDS: ADVAIR DISKUS 100/50 INH PWD INH SCH ×2 (07:32→20:08)
[2016-10-24] MEDS: ENOXAPARIN 40 MG/0.4 ML SYRINGE (J1650) SC SCH (10:06)
[2016-10-24] MEDS: NICOTINE 14 MG/24 HR TRANSDERMAL TD SCH (10:06)
[2016-10-24] MEDS: amLODIPine 10 MG TAB PO SCH (10:06)
[2016-10-24] MEDS: ASPIRIN 81 MG ENTERIC TAB PO SCH (10:06)
[2016-10-24] MEDS: methylPREDNISolone INJ 40 MG/1 ML VIAL (J2920) IV SCH (10:06)
[2016-10-24] MEDS: METOPROLOL TART 25 MG TABLET PO SCH ×2 (10:07→21:14)
[2016-10-24 12:00] VITALS: BP 140/78
[2016-10-24] MEDS: predniSONE 20 MG TAB PO SCH (12:01)
[2016-10-24] MEDS: OSELTAMIVIR PHOSPHATE 75 MG CAP (TAMIFLU) PO SCH ×2 (12:01→21:14)
--- NOTE | 2016-10-24 13:43 | IPNPDOC ---
Subjective Date Seen The patient was seen on 10/24/16. Subjective Chief Complaint/HPI The patient is a 61-year-old female admitted with a reason for visit of Acute Respiratory Failure. General: Denies: Chills, Night Sweats Constitutional: Denies: Chills, Fever Eyes: Denies: Pain, Vision change ENT: Denies: Ear Pain, Head Aches Skin: Denies: Lesions, Rash Pulmonary: Reports: Cough, Dyspnea Cardiovascular: Denies: Chest Pain, Palpitations Gastrointestinal: Denies: Nausea, Vomiting Genitourinary: Denies: Dysuria, Frequency Hematologic: Denies: Bleeding Excessively, Bruising Objective Physical Examination General Exam: Positive: Alert, Cooperative, No Acute Distress ENT Exam: Positive: Atraumatic, Mucous membr. moist/pink Chest Exam: Positive: Diminished, Negative: Normal air movement (Decreased air movement), Rales, Rhonchi Heart Exam: Positive: Normal S1, Normal S2, Rate Normal Abdomen Exam: Positive: Soft, Negative: Tenderness Extremity Exam: Negative: Swelling, Tenderness Assessment /Plan Plan/VTE VTE Prophylaxis Ordered?: Yes Plan Acute on Chronic Hypoxic Respiratory Failure: 2/2 COPD Exacerbation, HCAP CT Chest + Abdomen/Pelvis noted-->Inflammatory process consistent with PNA and Two 4mm Nodules noted Solu-Medrol transitioned to Prednisone 40mg daily, cont DuoNeb's. We will discontinue the patient on empiric antibiotic therapy given +Flu Respiratory Panel noted to be + for Influenza B-->Patient has been started on Tamiflu Patient states that her breathing has improved over the last 24-48hrs, and we have been able to down-taper her oxygen requirements down to her baseline of 2 L via nasal cannula We will cont to monitor Respiratory Status Two 4mm Lung Nodules noted on CT Chest Advised the patient that she will need to follow up with a CT Study in 6-12 Months for further monitoring COPD Cont Advair, Steroids, Nebs as noted above Hypertension Continue Norvasc and metoprolol. Hyperlipidemia Continue statin. History of tobacco use I have extensively discussed with the patient the need for her to abstain from any tobacco use given her COPD requiring 2 L of oxygen, frequent admissions to the hospital for decompensation of COPD; including significant CO2 retention during her most recent admission and poor long-term prognosis. I also discussed the possibility of the patient possibly needing to be intubated in the future if her respiratory status further decompensates. At this time, the patient states that she would like to be a full code. DVT prophylaxis Lovenox Disposition: We will continue to monitor the patient's respiratory status, and anticipate DC in the next 24-48 hours pending clinical improvement. VS, I&O, 24H, Fishbone Vital Signs/I&O Vital Signs Date Time Temp Pulse Resp B/P Pulse Ox O2 Delivery O2 Flow Rate FiO2 10/24/16 12:53 Nasal Cannula 3.0 10/24/16 12:00 96.8 97 18 140/78 97 I&O- Last 24 Hours up to 6 AM 10/24/16 06:00 Intake Total 1990 ml Output Total 700 ml Balance 1290 ml Laboratory Data 24H LABS Laboratory Tests 2 10/24/16 05:35: Anion Gap 9, White Blood Count 7.6, Red Blood Count 4.66, Hemoglobin 13.0, Hematocrit 40.8, Mean Corpuscular Volume 87.6, Mean Corpuscular Hemoglobin 27.9 , Mean Corpuscular Hemoglobin Concent 31.8L, Red Cell Distribution Width 15.2H, Platelet Count 303, Neutrophils (%) (Auto) 81.3H, Lymphocytes (%) (Auto) 9.9L, Monocytes (%) (Auto) 4.2, Eosinophils (%) (Auto) 0.4, Basophils (%) (Auto) 0.4, Neutrophils # (Auto) 6.2, Lymphocytes # (Auto) 1.0L, Monocytes # (Auto) 0.3, Eosinophils # (Auto) 0.0, Basophils # (Auto) 0.0, Blood Urea Nitrogen 10, Creatinine 0.73, Sodium Level 138, Potassium Level 4.2, Chloride Level 93L, Carbon Dioxide Level 36H, Calcium Level 8.5L, Glomerular Filtration Rate > 60.0 , Large Unclassified Cells # 0.3, Large Unclassified Cells % 3.8, Magnesium Level 2.0 CBC/BMP Laboratory Tests 10/24/16 05:35 Calcium Level 8.5 L, Red Blood Count 4.66, Mean Corpuscular Volume 87.6, Mean Corpuscular Hemoglobin 27.9, Mean Corpuscular Hemoglobin Concent 31.8 L, Red Cell Distribution Width 15.2 H, Neutrophils (%) (Auto) 81.3 H, Lymphocytes (%) ( Auto) 9.9 L, Monocytes (%) (Auto) 4.2, Eosinophils (%) (Auto) 0.4, Basophils (% ) (Auto) 0.4, Neutrophils # (Auto) 6.2, Lymphocytes # (Auto) 1.0 L, Monocytes # (Auto) 0.3, Eosinophils # (Auto) 0.0, Basophils # (Auto) 0.0 Microbiology Microbiology 10/22/16 Blood Culture - Preliminary, Resulted No growth after 24 hours . All specim... 10/22/16 Blood Culture - Preliminary, Resulted No growth after 24 hours . All specim... 10/23/16 Respiratory Virus Panel (PCR) ([facility]) - Final, Complete Influenza B SEBASTIAN HURT MD Oct 24, 2016 13:42
[2016-10-24 16:00] VITALS: BP 138/80
[2016-10-24] MEDS ORDERED: MIRALAX *UNIT DOSE* 17GM PACKET PO PRN (16:30)
[2016-10-24 20:00] VITALS: BP 144/77
[2016-10-24] MEDS: diphenhydrAMINE 50 MG CAP PO PRN (21:14)
[2016-10-24] MEDS: CLOPIDOGREL 75 MG TAB PO SCH (21:14)
[2016-10-24] MEDS: ATORVASTATIN 20 MG TAB PO SCH (21:14)
[2016-10-25] VITALS (8 sets, daily range): BP systolic 120–149; BP diastolic 62–86; O2SAT 90
[2016-10-25] MEDS: IPRATROPIUM 0.5MG/ALBUTEROL 2.5MG INH SOL UD 3ML (DUONEB)(J7620) NEB SCH ×3 (02:00→19:59)
[2016-10-25] MEDS: SLF 3 ML SYR IV SCH ×3 (04:38→20:27)
[2016-10-25 05:41] LABS: BASO % 0.4 % (0.0-1.0); EOS % 0.1 % (0.0-3.0); LARGE UNSTAINED CELL # 0.5 K/mm3 (0.0-0.4); LARGE UNSTAINED CELL % 4.5 % (0.0-4.0); LYMPH # 1.4 K/mm3 (1.5-4.5); LYMPH % 12.1 % (24.0-44.0); MEAN CORPUSCULAR HEMOGLOBIN 27.9 pg (27.0-33.0); MEAN CORPUSCULAR HGB CONC 31.6 g/dl (32.0-36.5); MEAN CORPUSCULAR VOLUME 88.3 fl (80.0-96.0); MONO # 0.5 K/mm3 (0.0-0.8); NEUTROPHILS % 78.9 % (36.0-66.0); PLATELET COUNT, AUTOMATED 334 k/mm3 (150-450); RED CELL DISTRIBUTION WIDTH 15.2 % (11.5-14.5); WHITE BLOOD COUNT 11.5 K/mm3 (4.0-10.0)
[2016-10-25 06:01] LABS: ANION GAP 6 MEQ/L (8-16); BLOOD UREA NITROGEN 12 MG/DL (7-18); CALCIUM LEVEL 8.3 MG/DL (8.8-10.2); CARBON DIOXIDE LEVEL 37 MEQ/L (21-32); CHLORIDE LEVEL 97 MEQ/L (98-107); CREATININE FOR GFR 0.53 MG/DL (0.55-1.02); GLOMERULAR FILTRATION RATE > 60.0 (>45); GLUCOSE, FASTING 118 MG/DL (80-110); MAGNESIUM LEVEL 1.9 MG/DL (1.8-2.4); POTASSIUM SERUM 3.9 MEQ/L (3.5-5.1); SODIUM LEVEL 140 MEQ/L (136-145)
[2016-10-25] MEDS: ADVAIR DISKUS 100/50 INH PWD INH SCH ×2 (07:42→19:57)
[2016-10-25] MEDS: NICOTINE 14 MG/24 HR TRANSDERMAL TD SCH (09:50)
[2016-10-25] MEDS: ENOXAPARIN 40 MG/0.4 ML SYRINGE (J1650) SC SCH (09:50)
[2016-10-25] MEDS: ASPIRIN 81 MG ENTERIC TAB PO SCH (09:51)
[2016-10-25] MEDS: predniSONE 20 MG TAB PO SCH (09:51)
[2016-10-25] MEDS: OSELTAMIVIR PHOSPHATE 75 MG CAP (TAMIFLU) PO SCH ×2 (09:51→20:27)
[2016-10-25] MEDS: amLODIPine 10 MG TAB PO SCH (09:53)
[2016-10-25] MEDS: METOPROLOL TART 25 MG TABLET PO SCH ×2 (09:54→20:27)
--- NOTE | 2016-10-25 11:39 | IPNPDOC ---
Subjective Date Seen The patient was seen on 10/25/16. Subjective Chief Complaint/HPI The patient is a 61-year-old female admitted with a reason for visit of Acute Respiratory Failure. General: Reports: Fatigue, Malaise, Denies: Chills, Night Sweats Constitutional: Denies: Chills, Fever Eyes: Denies: Pain, Vision change ENT: Denies: Ear Pain, Head Aches Skin: Denies: Lesions, Rash Pulmonary: Reports: Cough, Dyspnea Cardiovascular: Denies: Chest Pain, Palpitations Gastrointestinal: Denies: Nausea, Vomiting Genitourinary: Denies: Dysuria, Frequency Hematologic: Denies: Bleeding Excessively, Bruising Objective Physical Examination General Exam: Positive: Alert, Cooperative, No Acute Distress ENT Exam: Positive: Atraumatic, Mucous membr. moist/pink Chest Exam: Positive: Diminished, Negative: Normal air movement (Decreased air movement), Rales, Rhonchi Heart Exam: Positive: Normal S1, Normal S2, Rate Normal Abdomen Exam: Positive: Soft, Negative: Tenderness Extremity Exam: Negative: Swelling, Tenderness Assessment /Plan Plan/VTE VTE Prophylaxis Ordered?: Yes Plan Acute on Chronic Hypoxic Respiratory Failure: 2/2 COPD Exacerbation, HCAP CT Chest + Abdomen/Pelvis noted-->Inflammatory process consistent with PNA and Two 4mm Nodules noted Cont Prednisone 40mg daily, cont DuoNeb's. Respiratory Panel noted to be + for Influenza B-->Patient on Tamiflu We will discontinue the patient on empiric antibiotic therapy given +Flu Patient states that her breathing has improved over the last 24-48hrs, and we have been able to down-taper her oxygen requirements down to her baseline of 2 L via nasal cannula We will cont to monitor Respiratory Status Two 4mm Lung Nodules noted on CT Chest Advised the patient that she will need to follow up with a CT Study in 6-12 Months for further monitoring COPD Cont Advair, Steroids, Nebs as noted above Hypertension Continue Norvasc and metoprolol. Hyperlipidemia Continue statin. History of tobacco use I have extensively discussed with the patient the need for her to abstain from any tobacco use given her COPD requiring 2 L of oxygen, frequent admissions to the hospital for decompensation of COPD; including significant CO2 retention during her most recent admission and poor long-term prognosis. I also discussed the possibility of the patient possibly needing to be intubated in the future if her respiratory status further decompensates. At this time, the patient states that she would like to be a full code. DVT prophylaxis Lovenox Disposition: We will continue to monitor the patient's respiratory status, and anticipate DC in the next 24-48 hours pending clinical improvement. VS, I&O, 24H, Fishbone Vital Signs/I&O Vital Signs Date Time Temp Pulse Resp B/P Pulse Ox O2 Delivery O2 Flow Rate FiO2 10/25/16 09:53 86 114/61 10/25/16 08:00 97.5 20 90 Nasal Cannula 3.0 I&O- Last 24 Hours up to 6 AM 10/25/16 05:59 Intake Total 1760 ml Output Total 600 ml Balance 1160 ml Laboratory Data 24H LABS Laboratory Tests 2 10/25/16 05:17: Anion Gap 6L, White Blood Count 11.5H, Red Blood Count 4.58, Hemoglobin 12.8, Hematocrit 40.4, Mean Corpuscular Volume 88.3, Mean Corpuscular Hemoglobin 27.9 , Mean Corpuscular Hemoglobin Concent 31.6L, Red Cell Distribution Width 15.2H, Platelet Count 334, Neutrophils (%) (Auto) 78.9H, Lymphocytes (%) (Auto) 12.1L, Monocytes (%) (Auto) 4.0, Eosinophils (%) (Auto) 0.1, Basophils (%) (Auto) 0.4, Neutrophils # (Auto) 9.0H, Lymphocytes # (Auto) 1.4L, Monocytes # (Auto) 0.5, Eosinophils # (Auto) 0.0, Basophils # (Auto) 0.0, Blood Urea Nitrogen 12, Creatinine 0.53L, Sodium Level 140, Potassium Level 3.9, Chloride Level 97L, Carbon Dioxide Level 37H, Calcium Level 8.3L, Glomerular Filtration Rate > 60.0 , Large Unclassified Cells # 0.5H, Large Unclassified Cells % 4.5H, Magnesium Level 1.9 CBC/BMP Laboratory Tests 10/25/16 05:17 Calcium Level 8.3 L, Red Blood Count 4.58, Mean Corpuscular Volume 88.3, Mean Corpuscular Hemoglobin 27.9, Mean Corpuscular Hemoglobin Concent 31.6 L, Red Cell Distribution Width 15.2 H, Neutrophils (%) (Auto) 78.9 H, Lymphocytes (%) ( Auto) 12.1 L, Monocytes (%) (Auto) 4.0, Eosinophils (%) (Auto) 0.1, Basophils (% ) (Auto) 0.4, Neutrophils # (Auto) 9.0 H, Lymphocytes # (Auto) 1.4 L, Monocytes # (Auto) 0.5, Eosinophils # (Auto) 0.0, Basophils # (Auto) 0.0 Microbiology Microbiology 10/22/16 Blood Culture - Preliminary, Resulted No Growth after 48 hours. All Specime... 10/22/16 Blood Culture - Preliminary, Resulted No Growth after 48 hours. All Specime... 10/23/16 Respiratory Virus Panel (PCR) ([facility]) - Final, Complete Influenza B SEBASTIAN HURT MD Oct 25, 2016 11:39
[2016-10-25] MEDS ORDERED: MOM 30ML SUSPENSION UDC PO PRN (17:00)
[2016-10-25] MEDS: ATORVASTATIN 20 MG TAB PO SCH (20:27)
[2016-10-25] MEDS: CLOPIDOGREL 75 MG TAB PO SCH (20:27)
[2016-10-25] MEDS: diphenhydrAMINE 50 MG CAP PO PRN (20:31)
[2016-10-26] VITALS: BP 143/84
[2016-10-26] MEDS: IPRATROPIUM 0.5MG/ALBUTEROL 2.5MG INH SOL UD 3ML (DUONEB)(J7620) NEB SCH ×4 (02:00→19:57)
[2016-10-26 04:00] VITALS: BP 131/80
[2016-10-26] MEDS: SLF 3 ML SYR IV SCH ×3 (04:55→20:29)
[2016-10-26 05:49] LABS: BASO % 0.3 % (0.0-1.0); EOS % 0.4 % (0.0-3.0); LARGE UNSTAINED CELL # 0.3 K/mm3 (0.0-0.4); LARGE UNSTAINED CELL % 2.4 % (0.0-4.0); LYMPH # 2.3 K/mm3 (1.5-4.5); LYMPH % 18.6 % (24.0-44.0); MEAN CORPUSCULAR HEMOGLOBIN 28.6 pg (27.0-33.0); MEAN CORPUSCULAR HGB CONC 32.1 g/dl (32.0-36.5); MEAN CORPUSCULAR VOLUME 89.1 fl (80.0-96.0); MONO # 0.6 K/mm3 (0.0-0.8); MONO % 5.6 % (0.0-5.0); NEUTROPHILS # 8.1 K/mm3 (1.8-7.7); NEUTROPHILS % 72.7 % (36.0-66.0); PLATELET COUNT, AUTOMATED 344 k/mm3 (150-450); RED CELL DISTRIBUTION WIDTH 15.3 % (11.5-14.5); WHITE BLOOD COUNT 11.1 K/mm3 (4.0-10.0)
[2016-10-26 05:50] LABS: ANION GAP 5 MEQ/L (8-16); BLOOD UREA NITROGEN 10 MG/DL (7-18); CALCIUM LEVEL 8.6 MG/DL (8.8-10.2); CARBON DIOXIDE LEVEL 38 MEQ/L (21-32); CHLORIDE LEVEL 99 MEQ/L (98-107); CREATININE FOR GFR 0.55 MG/DL (0.55-1.02); GLOMERULAR FILTRATION RATE > 60.0 (>45); GLUCOSE, FASTING 110 MG/DL (80-110); MAGNESIUM LEVEL 2.3 MG/DL (1.8-2.4); POTASSIUM SERUM 4.8 MEQ/L (3.5-5.1); SODIUM LEVEL 142 MEQ/L (136-145)
[2016-10-26] MEDS: ADVAIR DISKUS 100/50 INH PWD INH SCH ×2 (07:47→20:00)
[2016-10-26 08:00] VITALS: BP 107/51
[2016-10-26] MEDS: OSELTAMIVIR PHOSPHATE 75 MG CAP (TAMIFLU) PO SCH ×2 (09:06→20:28)
[2016-10-26] MEDS: amLODIPine 10 MG TAB PO SCH (09:06)
[2016-10-26] MEDS: ASPIRIN 81 MG ENTERIC TAB PO SCH (09:06)
[2016-10-26] MEDS: METOPROLOL TART 25 MG TABLET PO SCH ×2 (09:06→20:28)
[2016-10-26] MEDS: predniSONE 20 MG TAB PO SCH (09:06)
[2016-10-26] MEDS: NICOTINE 14 MG/24 HR TRANSDERMAL TD SCH (09:06)
[2016-10-26] MEDS: ENOXAPARIN 40 MG/0.4 ML SYRINGE (J1650) SC SCH (09:07)
--- NOTE | 2016-10-26 11:51 | IPNPDOC ---
Subjective Date Seen The patient was seen on 10/26/16. Subjective Chief Complaint/HPI The patient is a 61-year-old female admitted with a reason for visit of Acute Respiratory Failure. General: Denies: Chills, Night Sweats Constitutional: Denies: Chills, Fever Eyes: Denies: Pain, Vision change ENT: Denies: Ear Pain, Head Aches Skin: Denies: Lesions, Rash Pulmonary: Reports: Cough, Dyspnea Cardiovascular: Denies: Chest Pain, Palpitations Gastrointestinal: Denies: Nausea, Vomiting Genitourinary: Denies: Dysuria, Frequency Hematologic: Denies: Bleeding Excessively, Bruising Objective Physical Examination General Exam: Positive: Alert, Cooperative, No Acute Distress ENT Exam: Positive: Atraumatic, Mucous membr. moist/pink Chest Exam: Positive: Diminished, Negative: Normal air movement (Decreased air movement), Rales, Rhonchi Heart Exam: Positive: Normal S1, Normal S2, Rate Normal Abdomen Exam: Positive: Soft, Negative: Tenderness Extremity Exam: Negative: Swelling, Tenderness Assessment /Plan Plan/VTE VTE Prophylaxis Ordered?: Yes Plan Acute on Chronic Hypoxic Respiratory Failure: 2/2 COPD Exacerbation, HCAP CT Chest + Abdomen/Pelvis noted-->Inflammatory process consistent with PNA and Two 4mm Nodules noted Cont Prednisone 40mg daily, cont DuoNeb's. Respiratory Panel noted to be + for Influenza B-->Patient on Tamiflu We will discontinue the patient on empiric antibiotic therapy given +Flu Patient states that her breathing has improved over the last 24-48hrs, and we have been able to down-taper her oxygen requirements down to her baseline of 2 L via nasal cannula We will cont to monitor Respiratory Status Two 4mm Lung Nodules noted on CT Chest Advised the patient that she will need to follow up with a CT Study in 6-12 Months for further monitoring COPD Cont Advair, Steroids, Nebs as noted above Hypertension Continue Norvasc and metoprolol. Hyperlipidemia Continue statin. History of tobacco use I have extensively discussed with the patient the need for her to abstain from any tobacco use given her COPD requiring 2 L of oxygen, frequent admissions to the hospital for decompensation of COPD; including significant CO2 retention during her most recent admission and poor long-term prognosis. I also discussed the possibility of the patient possibly needing to be intubated in the future if her respiratory status further decompensates. At this time, the patient states that she would like to be a full code. DVT prophylaxis Lovenox Disposition: We will continue to monitor the patient's respiratory status, and anticipate DC in the next 24-48 hours pending clinical improvement. VS, I&O, [facility]/I&O Vital Signs Date Time Temp Pulse Resp B/P Pulse Ox O2 Delivery O2 Flow Rate FiO2 10/26/16 09:06 67 107/51 10/26/16 09:00 Nasal Cannula 3.0 10/26/16 08:00 97.0 20 96 I&O- Last 24 Hours up to 6 AM 10/26/16 06:00 Intake Total 1380 ml Output Total 800 ml Balance 580 ml Laboratory Data 24H LABS Laboratory Tests 2 10/26/16 04:58: Anion Gap 5L, White Blood Count 11.1H, Red Blood Count 4.99, Hemoglobin 14.3, Hematocrit 44.5, Mean Corpuscular Volume 89.1, Mean Corpuscular Hemoglobin 28.6 , Mean Corpuscular Hemoglobin Concent 32.1, Red Cell Distribution Width 15.3H, Platelet Count 344, Neutrophils (%) (Auto) 72.7H, Lymphocytes (%) (Auto) 18.6L, Monocytes (%) (Auto) 5.6H, Eosinophils (%) (Auto) 0.4, Basophils (%) (Auto) 0.3 , Neutrophils # (Auto) 8.1H, Lymphocytes # (Auto) 2.3, Monocytes # (Auto) 0.6, Eosinophils # (Auto) 0.0, Basophils # (Auto) 0.0, Blood Urea Nitrogen 10, Creatinine 0.55, Sodium Level 142, Potassium Level 4.8#, Chloride Level 99, Carbon Dioxide Level 38H, Calcium Level 8.6L, Glomerular Filtration Rate > 60.0 , Large Unclassified Cells # 0.3, Large Unclassified Cells % 2.4, Magnesium Level 2.3 CBC/BMP Laboratory Tests 10/26/16 04:58 Calcium Level 8.6 L, Red Blood Count 4.99, Mean Corpuscular Volume 89.1, Mean Corpuscular Hemoglobin 28.6, Mean Corpuscular Hemoglobin Concent 32.1, Red Cell Distribution Width 15.3 H, Neutrophils (%) (Auto) 72.7 H, Lymphocytes (%) (Auto ) 18.6 L, Monocytes (%) (Auto) 5.6 H, Eosinophils (%) (Auto) 0.4, Basophils (%) (Auto) 0.3, Neutrophils # (Auto) 8.1 H, Lymphocytes # (Auto) 2.3, Monocytes # ( Auto) 0.6, Eosinophils # (Auto) 0.0, Basophils # (Auto) 0.0 Microbiology Microbiology 10/22/16 Blood Culture - Preliminary, Resulted No Growth after 72 hours. All specime... 10/22/16 Blood Culture - Preliminary, Resulted No Growth after 72 hours. All specime... 10/23/16 Respiratory Virus Panel (PCR) ([facility]) - Final, Complete Influenza B SEBASTIAN HURT MD Oct 26, 2016 11:51
[2016-10-26] MEDS ORDERED: MAGNESIUM CITRATE 300 ML BTL PO ONE ×2 (13:00→18:00)
[2016-10-26 15:50] VITALS: BP 162/93
[2016-10-26] MEDS: CLOPIDOGREL 75 MG TAB PO SCH (20:28)
[2016-10-26] MEDS: diphenhydrAMINE 50 MG CAP PO PRN (20:28)
[2016-10-26] MEDS: ATORVASTATIN 20 MG TAB PO SCH (20:28)
[2016-10-26 22:00] VITALS: BP 146/89
[2016-10-27] MEDS: IPRATROPIUM 0.5MG/ALBUTEROL 2.5MG INH SOL UD 3ML (DUONEB)(J7620) NEB SCH ×2 (02:00→08:00)
[2016-10-27] MEDS: SLF 3 ML SYR IV SCH (05:29)
[2016-10-27 06:00] VITALS: BP 174/92
[2016-10-27 06:44] LABS: BASO % 0.1 % (0.0-1.0); EOS # 0.1 K/mm3 (0.0-0.50); LARGE UNSTAINED CELL # 0.2 K/mm3 (0.0-0.4); LARGE UNSTAINED CELL % 2.2 % (0.0-4.0); LYMPH # 2.1 K/mm3 (1.5-4.5); MEAN CORPUSCULAR HGB CONC 31.7 g/dl (32.0-36.5); MEAN CORPUSCULAR VOLUME 88.5 fl (80.0-96.0); MONO # 0.5 K/mm3 (0.0-0.8); MONO % 6.6 % (0.0-5.0); NEUTROPHILS # 5.4 K/mm3 (1.8-7.7); NEUTROPHILS % 66.1 % (36.0-66.0); PLATELET COUNT, AUTOMATED 357 k/mm3 (150-450); RED CELL DISTRIBUTION WIDTH 15.5 % (11.5-14.5); WHITE BLOOD COUNT 8.1 K/mm3 (4.0-10.0)
[2016-10-27 06:58] LABS: ANION GAP 6 MEQ/L (8-16); BLOOD UREA NITROGEN 10 MG/DL (7-18); CALCIUM LEVEL 7.9 MG/DL (8.8-10.2); CARBON DIOXIDE LEVEL 35 MEQ/L (21-32); CHLORIDE LEVEL 99 MEQ/L (98-107); CREATININE FOR GFR 0.52 MG/DL (0.55-1.02); GLOMERULAR FILTRATION RATE > 60.0 (>45); GLUCOSE, FASTING 94 MG/DL (80-110); MAGNESIUM LEVEL 2.6 MG/DL (1.8-2.4); POTASSIUM SERUM 4.1 MEQ/L (3.5-5.1); SODIUM LEVEL 140 MEQ/L (136-145)
[2016-10-27] MEDS: ADVAIR DISKUS 100/50 INH PWD INH SCH (08:33)
[2016-10-27] MEDS: ENOXAPARIN 40 MG/0.4 ML SYRINGE (J1650) SC SCH (09:00)
[2016-10-27] MEDS: NICOTINE 14 MG/24 HR TRANSDERMAL TD SCH (10:16)
[2016-10-27] MEDS: predniSONE 20 MG TAB PO SCH (10:16)
[2016-10-27 10:17] VITALS: BP 174/92
[2016-10-27] MEDS: ASPIRIN 81 MG ENTERIC TAB PO SCH (10:17)
[2016-10-27] MEDS: METOPROLOL TART 25 MG TABLET PO SCH (10:17)
[2016-10-27] MEDS: OSELTAMIVIR PHOSPHATE 75 MG CAP (TAMIFLU) PO SCH (10:17)
[2016-10-27] MEDS: amLODIPine 10 MG TAB PO SCH (10:17)
[2016-10-27] MEDS ORDERED: PRED10TA PO (10:42)
--- NOTE | 2016-10-27 13:31 | DS.PDOC ---
Discharge Summary General Date of Admission Oct 22, 2016 at 18:23 Date of Discharge Oct 27, 2016 at 11:59 Discharge Summary PROCEDURES PERFORMED DURING STAY: None. ADMITTING DIAGNOSES: 1. . COPD exacerbation 2. . Influenza B positive DISCHARGE DIAGNOSES: 1. . COPD exacerbation 2. . Influenza B positive COMPLICATIONS/CHIEF COMPLAINT: Acute Respiratory Failure. HISTORY OF PRESENT ILLNESS: . 61-year-old female with COPD on 2 L home O2, hyperlipidemia, hypertension who presented with shortness of breath. The patient was recently admitted to the hospital for a COPD exacerbation, with possible underlying pneumonia 2 weeks prior to her admission in the ER on 10/22/16. She did follow up with her PCP, who prescribed her Levaquin for the increasing shortness of breath. At the time of presentation to the ER, the patient stated that she was so short of breath that she could not talk. The patient was admitted to the hospital service for COPD exacerbation. During the patient's stay in the hospital, she was noted to be influenza B positive and respiratory panel. She was started on Tamiflu, which she has completed. In addition, she was started on a tapering dose of steroids. At this time, the patient states that she is feeling significantly better, and notes that she is at her baseline. Of note, the patient was also noted to have two [address] nodules noted [address] scan of the chest. I've advised the patient about these findings, and have recommended a follow-up CT scan study to be done in 6-12 months for further evaluation. The patient will be discharged on a tapering dose of steroids, and I have advised her to follow-up with her primary care physician within one week. DISCHARGE MEDICATIONS: Please see below. ALLERGIES: Please see below. PHYSICAL EXAMINATION ON DISCHARGE: VITAL SIGNS: Please see below. General Exam: Positive: Alert, Cooperative, No Acute Distress ENT Exam: Positive: Atraumatic, Mucous membr. moist/pink Chest Exam: Positive: Diminished, Negative: Normal air movement (Decreased air movement), Rales, Rhonchi Heart Exam: Positive: Normal S1, Normal S2, Rate Normal Abdomen Exam: Positive: Soft, Negative: Tenderness Extremity Exam: Negative: Swelling, Tenderness LABORATORY DATA: Please see below. IMAGING: CT study with IV contrast: History: Lung nodules. Assess for malignancy. Comparison is made with noncontrast chest CT study from October 22, 2016. CT contrast dose: 100 mL of Isovue [address] findings: There are very small slivers of pleural fluid at the posterior lung gutter bilaterally. There is some subsegmental discoid atelectasis in the lower lobes bilaterally, left a little more extensively than right. This is actually a little more prominent than on yesterday's CT and may reflect inflammatory change. This also involves the lingula and right middle lobe in addition to both lower lobes. There are scattered right hilar and mediastinal lymph nodes which are normal in size. No adenopathy is seen. There is a 4 mm nodule in the right middle lobe which may be partially calcified. There is a less than solid 4 mm nodule in the right lower lobe on image #64 of 103 of today's study. Lastly, there is a ill-defined area of pleural thickening at the base of the major fissure on the right projecting and simulating a right middle lobe nodule. Impression: Patchy bilateral atelectatic changes and consolidation changes a little more prominent today than on yesterday's CT. Left greater than right. This is compatible with pulmonary inflammatory or infectious disease. There are two 4 mm nodules noted, one of the middle lobe and one of the lower lobe on the right side. A very small amount of pleural fluid is visible in the posterior pleural angles. No other significant finding. Follow-up chest CT study recommended in 6-12 months. PROGNOSIS: ACTIVITY: As tolerated. DIET: . 2 g low sodium diet DISCHARGE PLAN: DISPOSITION: Home, Self-Care. DISCHARGE INSTRUCTIONS: 1. . Follow-up with primary care physician within one week 2. . Remain adherent to medication therapy, tapering dose of steroids 3. . DISCHARGE CONDITION: Stable. TIME SPENT ON DISCHARGE: Greater than 30 minutes. Vital Signs/I&Os Vital Signs Date Time Temp Pulse Resp B/P Pulse Ox O2 Delivery O2 Flow Rate FiO2 10/27/16 10:23 Nasal Cannula 3.0 10/27/16 10:17 69 174/92 10/27/16 06:00 96.8 18 94 I&O- Last 24 Hours up to 6 AM 10/27/16 06:00 Intake Total 2420 ml Output Total 1900 ml Balance 520 ml Laboratory Data Labs 24H Laboratory Tests 2 10/27/16 06:31: Anion Gap 6L, White Blood Count 8.1, Red Blood Count 4.87, Hemoglobin 13.6, Hematocrit 43.1, Mean Corpuscular Volume 88.5, Mean Corpuscular Hemoglobin 28.0 , Mean Corpuscular Hemoglobin Concent 31.7L, Red Cell Distribution Width 15.5H, Platelet Count 357, Neutrophils (%) (Auto) 66.1H, Lymphocytes (%) (Auto) 24.0, Monocytes (%) (Auto) 6.6H, Eosinophils (%) (Auto) 1.0, Basophils (%) (Auto) 0.1 , Neutrophils # (Auto) 5.4, Lymphocytes # (Auto) 2.1, Monocytes # (Auto) 0.5, Eosinophils # (Auto) 0.1, Basophils # (Auto) 0.0, Blood Urea Nitrogen 10, Creatinine 0.52L, Sodium Level 140, Potassium Level 4.1, Chloride Level 99, Carbon Dioxide Level 35H, Calcium Level 7.9L, Glomerular Filtration Rate > 60.0 , Large Unclassified Cells # 0.2, Large Unclassified Cells % 2.2, Magnesium Level 2.6H CBC/BMP Laboratory Tests 10/27/16 06:31 Calcium Level 7.9 L, Red Blood Count 4.87, Mean Corpuscular Volume 88.5, Mean Corpuscular Hemoglobin 28.0, Mean Corpuscular Hemoglobin Concent 31.7 L, Red Cell Distribution Width 15.5 H, Neutrophils (%) (Auto) 66.1 H, Lymphocytes (%) ( Auto) 24.0, Monocytes (%) (Auto) 6.6 H, Eosinophils (%) (Auto) 1.0, Basophils (% ) (Auto) 0.1, Neutrophils # (Auto) 5.4, Lymphocytes # (Auto) 2.1, Monocytes # ( Auto) 0.5, Eosinophils # (Auto) 0.1, Basophils # (Auto) 0.0 Microbiology Microbiology 10/22/16 Blood Culture - Preliminary, Resulted No Growth after 72 hours. All specime... 10/22/16 Blood Culture - Preliminary, Resulted No Growth after 72 hours. All specime... 10/23/16 Respiratory Virus Panel (PCR) ([facility]) - Final, Complete Influenza B Discharge Medications Scheduled (Anoro Ellipta 62.5-25 Mcg/INH) 1 Aer Aer 1 AER INH DAILY (Reported) Amlodipine Besylate (Amlodipine Besylate) 10 Mg Tab 10 MG PO DAILY (Reported) Aspirin (Aspirin) 81 Mg Tab 81 MG PO DAILY (Reported) Atorvastatin Calcium (Atorvastatin Calcium) 20 Mg Tab 20 MG PO QHS (Reported) Clopidogrel Bisulfate (Plavix) 75 Mg Tab 75 MG PO QHS (Reported) Metoprolol Tartrate (Metoprolol Tartrate) 25 Mg Tab 25 MG PO BID (Reported) Nicotine (Nicotine 14MG Patch) 1 Patch Tdsy 1 PATCH TD DAILY (Reported) Prednisone (Prednisone) 10 Mg Tab 10 MG PO ASDIRECTED Scheduled PRN Albuterol Sulfate (Albuterol Sulfate) 2.5 Mg/3 Ml Nebu 2.5 MG INH Q4H PRN PRN SOB/WHEEZING (Reported) Bisacodyl (Dulcolax) 5 Mg Tab 5 MG PO DAILY PRN PRN BOWEL CARE/CONSTIPATION ( Reported) Diphenhydramine HCl (Banophen) 50 Mg Cap 50 MG PO QHS PRN PRN SLEEP (Reported) Allergies Coded Allergies: No Known Allergies (Unverified , 03/19/16) SEBASTIAN HURT MD Oct 27, 2016 13:31
== END 2016-10-27 11:59 | disposition home or self-care (01) | DRG 139 ==
LOC: M ED 17:46 → M ED INP 18:23 → M PCU 20:40 → M MSPAV 10-26 15:46
PROVIDERS: ADMIT Hospitalist; ATTEND Internal Medicine
DX: J10.08 Influenza due to other identified influenza virus with other specified pneumonia (principal); J96.21 Acute and chronic respiratory failure with hypoxia; Z99.81 Dependence on supplemental oxygen; J44.1 Chronic obstructive pulmonary disease with (acute) exacerbation; E78.5 Hyperlipidemia, unspecified; I10 Essential (primary) hypertension; R91.8 Other nonspecific abnormal finding of lung field; Y95 Nosocomial condition; Z87.891 Personal history of nicotine dependence; Z79.82 Long term (current) use of aspirin; Z79.899 Other long term (current) drug therapy; Z79.02 Long term (current) use of antithrombotics/antiplatelets; J18.9 Pneumonia, unspecified organism

== ENCOUNTER 2016-12-31 09:00 | Outpatient (RCR) | payer OTHER ==
[~2016-12-31 09:00] MED LIST changes: +ANOR1AER INH; +LEVO500T32 PO; +METO25TAB PO; +PRED10TA PO
== END 2017-01-14 ==
LOC: M PR 09:00
PROVIDERS: ATTEND Internal Medicine Pulmonary Disease
DX: Z51.89 Encounter for other specified aftercare (principal); J44.9 Chronic obstructive pulmonary disease, unspecified

== ENCOUNTER → 2017-02-10 | Outpatient (REF) | payer OTHER ==
[2017-02-10 12:15] LABS: MEAN CORPUSCULAR HEMOGLOBIN 31.3 pg (27.0-33.0); MEAN CORPUSCULAR HGB CONC 32.4 g/dl (32.0-36.5); MEAN CORPUSCULAR VOLUME 96.7 fl (80.0-96.0); RED CELL DISTRIBUTION WIDTH 15.8 % (11.5-14.5); WHITE BLOOD COUNT 8.2 K/mm3 (4.0-10.0)
[2017-02-10 13:05] LABS: ALBUMIN 3.5 GM/DL (3.2-5.2); ALBUMIN/GLOBULIN RATIO 0.85 (1.00-1.93); ALKALINE PHOSPHATASE 164 U/L (45-117); ALT/SGPT 137 U/L (12-78); ANION GAP 8 MEQ/L (8-16); AST/SGOT 89 U/L (15-37); BILIRUBIN,TOTAL 0.3 MG/DL (0.2-1.0); BLOOD UREA NITROGEN 9 MG/DL (7-18); CALCIUM LEVEL 9.1 MG/DL (8.8-10.2); CARBON DIOXIDE LEVEL 31 MEQ/L (21-32); CHLORIDE LEVEL 100 MEQ/L (98-107); CHOLESTEROL LEVEL 210 MG/DL (<200); CREATININE FOR GFR 0.72 MG/DL (0.55-1.02); GLOMERULAR FILTRATION RATE > 60.0 (>45); GLUCOSE, FASTING 142 MG/DL (80-110); SODIUM LEVEL 139 MEQ/L (136-145); TOTAL PROTEIN 7.6 GM/DL (6.4-8.2); TRIGLYCERIDES LEVEL 165 MG/DL (<150)
== END ==
LOC: M LABNEURO 11:33
PROVIDERS: ATTEND Nurse Practitioner Family
DX: E78.5 Hyperlipidemia, unspecified (principal); I10 Essential (primary) hypertension; E55.9 Vitamin D deficiency, unspecified

== ENCOUNTER → 2017-02-18 | Outpatient (REF) | payer OTHER ==
[~2017-02-18] MED LIST changes: +ASPI1TAB15 PO; -ASPI81TA7 PO; +LEVO500T3 PO; -LEVO500T32 PO; +METO25TA4 PO; -METO25TAB PO; +PLAV1TAB2 PO; -PLAV75TA38 PO; -PRED10TA PO; +PRED10TA2 PO
[2017-02-18 12:11] LABS: ALBUMIN 3.6 GM/DL (3.2-5.2); ANION GAP 5 MEQ/L (8-16); BLOOD UREA NITROGEN 9 MG/DL (7-18); CALCIUM LEVEL 9.1 MG/DL (8.8-10.2); CARBON DIOXIDE LEVEL 36 MEQ/L (21-32); CHLORIDE LEVEL 99 MEQ/L (98-107); CREATININE FOR GFR 0.62 MG/DL (0.55-1.02); GLOMERULAR FILTRATION RATE > 60.0 (>45); GLUCOSE, FASTING 132 MG/DL (80-110); PHOSPHORUS LEVEL 2.7 MG/DL (2.5-4.9); SODIUM LEVEL 140 MEQ/L (136-145)
[2017-02-18 12:13] LABS: POTASSIUM SERUM 5.5 MEQ/L (3.5-5.1)
== END ==
LOC: M LABNEURO 10:48
PROVIDERS: ATTEND Internal Medicine Nephrology
DX: E87.1 Hypo-osmolality and hyponatremia (principal); N39.0 Urinary tract infection, site not specified

== ENCOUNTER → 2017-03-11 | Outpatient (REF) | payer OTHER | LOC: M LABNEURO 13:36 | PROVIDERS: ATTEND Nurse Practitioner Family | DX: R73.9 Hyperglycemia, unspecified (principal) ==

== ENCOUNTER → 2017-03-23 | Outpatient (REF) | payer OTHER ==
[2017-03-27 15:38] LABS: FREE T4 0.81 NG/DL (0.76-1.46)
== END ==
LOC: M LAB REF 13:44
PROVIDERS: ATTEND Internal Medicine Nephrology
DX: E87.1 Hypo-osmolality and hyponatremia (principal); E03.9 Hypothyroidism, unspecified

== ENCOUNTER → 2017-06-25 | Outpatient (REF) | payer OTHER ==
[2017-06-25 13:18] LABS: MEAN CORPUSCULAR HEMOGLOBIN 29.7 pg (27.0-33.0); MEAN CORPUSCULAR HGB CONC 32.3 g/dl (32.0-36.5); MEAN CORPUSCULAR VOLUME 91.9 fl (80.0-96.0); PLATELET COUNT, AUTOMATED 416 10^3/uL (150-450); RED CELL DISTRIBUTION WIDTH 14.2 % (11.5-14.5); WHITE BLOOD COUNT 9.2 10^3/uL (4.0-10.0)
[2017-06-25 13:55] LABS: ALBUMIN 3.6 GM/DL (3.2-5.2); ALBUMIN/GLOBULIN RATIO 0.97 (1.00-1.93); ALKALINE PHOSPHATASE 139 U/L (45-117); ALT/SGPT 98 U/L (12-78); ANION GAP 10 MEQ/L (8-16); AST/SGOT 72 U/L (7-37); BILIRUBIN,TOTAL 0.3 MG/DL (0.2-1.0); BLOOD UREA NITROGEN 10 MG/DL (7-18); CALCIUM LEVEL 9.6 MG/DL (8.8-10.2); CARBON DIOXIDE LEVEL 33 MEQ/L (21-32); CHLORIDE LEVEL 94 MEQ/L (98-107); CHOLESTEROL LEVEL 211 MG/DL (<200); CREATININE FOR GFR 0.72 MG/DL (0.55-1.02); GLOMERULAR FILTRATION RATE > 60.0 (>45); GLUCOSE, FASTING 134 MG/DL (80-110); POTASSIUM SERUM 4.6 MEQ/L (3.5-5.1); SODIUM LEVEL 137 MEQ/L (136-145); TOTAL PROTEIN 7.3 GM/DL (6.4-8.2); TRIGLYCERIDES LEVEL 220 MG/DL (<150)
== END ==
LOC: M LABNEURO 11:10
PROVIDERS: ATTEND Nurse Practitioner Family
DX: E78.00 Pure hypercholesterolemia, unspecified (principal); I10 Essential (primary) hypertension; R73.9 Hyperglycemia, unspecified

== ENCOUNTER → 2017-07-14 | Outpatient (REF) | payer OTHER | LOC: M LABDRAW1 11:47 | PROVIDERS: ATTEND Nurse Practitioner Family | DX: I10 Essential (primary) hypertension (principal); E78.00 Pure hypercholesterolemia, unspecified; R73.9 Hyperglycemia, unspecified ==

== ENCOUNTER → 2017-12-18 | Outpatient (REF) | payer OTHER ==
[2017-12-18 13:02] LABS: BASO % 0.2 % (0.0-1.0); EOS # 0.1 10^3/uL (0.0-0.50); EOS % 1.3 % (0.0-3.0); HEMATOCRIT 46.4 % (36.0-47.0); HEMOGLOBIN 14.8 g/dl (12.0-15.5); IMMATURE GRANULOCYTE % 0.4 % (0-3.0); LYMPH # 2.4 10^3/uL (1.5-4.5); LYMPH % 28.2 % (24.0-44.0); MEAN CORPUSCULAR HEMOGLOBIN 29.6 pg (27.0-33.0); MEAN CORPUSCULAR HGB CONC 31.9 g/dl (32.0-36.5); MEAN CORPUSCULAR VOLUME 92.8 fl (80.0-96.0); MONO # 0.7 10^3/uL (0.0-0.8); MONO % 8.4 % (0.0-5.0); NEUTROPHILS # 5.2 10^3/uL (1.8-7.7); NEUTROPHILS % 61.5 % (36.0-66.0); PLATELET COUNT, AUTOMATED 431 10^3/uL (150-450); RED CELL DISTRIBUTION WIDTH 13.7 % (11.5-14.5); WHITE BLOOD COUNT 8.5 10^3/uL (4.0-10.0)
[2017-12-18 14:00] LABS: TOTAL 25(OH) VITAMIN D 40.5 NG/ML (30.0-100.0)
[2017-12-18 14:26] LABS: ALBUMIN 3.4 GM/DL (3.2-5.2); ALBUMIN/GLOBULIN RATIO 0.92 (1.00-1.93); ALKALINE PHOSPHATASE 155 U/L (45-117); ALT/SGPT 65 U/L (12-78); ANION GAP 3 MEQ/L (8-16); AST/SGOT 46 U/L (7-37); BILIRUBIN,TOTAL 0.4 MG/DL (0.2-1.0); BLOOD UREA NITROGEN 10 MG/DL (7-18); CALCIUM LEVEL 8.7 MG/DL (8.8-10.2); CARBON DIOXIDE LEVEL 39 MEQ/L (21-32); CHLORIDE LEVEL 95 MEQ/L (98-107); CHOLESTEROL LEVEL 205 MG/DL (<200); CREATININE FOR GFR 0.68 MG/DL (0.55-1.30); FREE T4 0.86 NG/DL (0.76-1.46); GLOMERULAR FILTRATION RATE > 60.0 (>45); GLUCOSE, FASTING 121 MG/DL (70-100); HDL CHOLESTEROL 48 MG/DL (>40); LDL CHOLESTEROL 118.8 MG/DL (<100); NON-HDL-C 157 MG/DL; POTASSIUM SERUM 4.3 MEQ/L (3.5-5.1); SODIUM LEVEL 137 MEQ/L (136-145); TOTAL PROTEIN 7.1 GM/DL (6.4-8.2); TRIGLYCERIDES LEVEL 191 MG/DL (<150)
[2017-12-18 15:18] LABS: ESTIMATED AVERAGE GLUCOSE 163 MG/DL (60-110); HEMOGLOBIN A1c 7.3 %
== END ==
LOC: M LABNEURO 10:54
DX: E78.5 Hyperlipidemia, unspecified (principal); I10 Essential (primary) hypertension; R60.9 Edema, unspecified; E55.9 Vitamin D deficiency, unspecified; Z79.899 Other long term (current) drug therapy; R74.8 Abnormal levels of other serum enzymes

== ENCOUNTER → 2018-04-22 | Outpatient (REF) | payer MEDICARE, OTHER, MEDICAID ==
[2018-04-22 13:50] LABS: BASO % 0.3 % (0.0-1.0); EOS # 0.2 10^3/uL (0.0-0.50); EOS % 1.5 % (0.0-3.0); HEMATOCRIT 44.5 % (36.0-47.0); HEMOGLOBIN 14.3 g/dl (12.0-15.5); IMMATURE GRANULOCYTE % 0.3 % (0-3.0); LYMPH # 2.8 10^3/uL (1.5-4.5); LYMPH % 25.9 % (24.0-44.0); MEAN CORPUSCULAR HEMOGLOBIN 29.8 pg (27.0-33.0); MEAN CORPUSCULAR HGB CONC 32.1 g/dl (32.0-36.5); MEAN CORPUSCULAR VOLUME 92.7 fl (80.0-96.0); MONO # 0.7 10^3/uL (0.0-0.8); MONO % 6.5 % (0.0-5.0); NEUTROPHILS # 7.1 10^3/uL (1.8-7.7); NEUTROPHILS % 65.5 % (36.0-66.0); PLATELET COUNT, AUTOMATED 402 10^3/uL (150-450); RED CELL DISTRIBUTION WIDTH 14.9 % (11.5-14.5); WHITE BLOOD COUNT 10.9 10^3/uL (4.0-10.0)
[2018-04-22 15:19] LABS: ALBUMIN 3.7 GM/DL (3.2-5.2); ALKALINE PHOSPHATASE 177 U/L (45-117); ALT/SGPT 30 U/L (12-78); ANION GAP 9 MEQ/L (8-16); AST/SGOT 14 U/L (7-37); BILIRUBIN,TOTAL 0.3 MG/DL (0.2-1.0); BLOOD UREA NITROGEN 15 MG/DL (7-18); CALCIUM LEVEL 9.2 MG/DL (8.8-10.2); CARBON DIOXIDE LEVEL 36 MEQ/L (21-32); CHLORIDE LEVEL 96 MEQ/L (98-107); CHOLESTEROL LEVEL 159 MG/DL (<200); CHOLESTEROL RISK RATIO 2.373 (<5); CREATININE FOR GFR 0.69 MG/DL (0.55-1.30); ESTIMATED AVERAGE GLUCOSE 151 MG/DL (60-110); FREE T4 0.86 NG/DL (0.76-1.46); GLOMERULAR FILTRATION RATE > 60.0 (>45); GLUCOSE, FASTING 117 MG/DL (70-100); HDL CHOLESTEROL 67 MG/DL (>40); HEMOGLOBIN A1c 6.9 %; LDL CHOLESTEROL 64.4 MG/DL (<100); NON-HDL-C 92 MG/DL; POTASSIUM SERUM 4.5 MEQ/L (3.5-5.1); SODIUM LEVEL 141 MEQ/L (136-145); TOTAL PROTEIN 7.4 GM/DL (6.4-8.2); TRIGLYCERIDES LEVEL 138 MG/DL (<150)
[2018-04-22 15:38] LABS: TOTAL 25(OH) VITAMIN D 43.9 NG/ML (30.0-100.0)
== END ==
LOC: M LABNEURO 10:12
DX: E11.9 Type 2 diabetes mellitus without complications (principal); Z79.899 Other long term (current) drug therapy; E55.9 Vitamin D deficiency, unspecified; E78.5 Hyperlipidemia, unspecified; R60.9 Edema, unspecified
CPT/HCPCS: 84443

== ENCOUNTER → 2019-02-16 | Outpatient (REF) | payer MEDICARE, MEDICAID ==
[~2019-02-16] MED LIST changes: -AMLO10TA2 PO; +AMLO10TA5 PO; -AMLO5TAB2 PO; +AMLO5TAB6 PO
[2019-02-16 13:28] LABS: BASO % 0.3 % (0.0-1.0); EOS # 0.1 10^3/uL (0.0-0.50); EOS % 1.3 % (0.0-3.0); HEMATOCRIT 45.4 % (36.0-47.0); HEMOGLOBIN 14.3 g/dl (12.0-15.5); LYMPH # 2.4 10^3/uL (1.5-4.5); LYMPH % 26.3 % (24.0-44.0); MEAN CORPUSCULAR HEMOGLOBIN 28.6 pg (27.0-33.0); MEAN CORPUSCULAR HGB CONC 31.5 g/dl (32.0-36.5); MEAN CORPUSCULAR VOLUME 90.8 fl (80.0-96.0); MONO # 0.8 10^3/uL (0.0-0.8); MONO % 8.6 % (0.0-5.0); NEUTROPHILS # 5.8 10^3/uL (1.8-7.7); NEUTROPHILS % 63.2 % (36.0-66.0); PLATELET COUNT, AUTOMATED 380 10^3/uL (150-450); WHITE BLOOD COUNT 9.1 10^3/uL (4.0-10.0)
[2019-02-16 13:34] LABS: ALT/SGPT 32 U/L (12-78); BLOOD UREA NITROGEN 10 MG/DL (7-18); CALCIUM LEVEL 9.3 MG/DL (8.8-10.2); CARBON DIOXIDE LEVEL 35 MEQ/L (21-32); CHLORIDE LEVEL 92 MEQ/L (98-107); CREATININE FOR GFR 0.68 MG/DL (0.55-1.30); GLOMERULAR FILTRATION RATE > 60.0 (>45); GLUCOSE, FASTING 124 MG/DL (70-100); POTASSIUM SERUM 4.3 MEQ/L (3.5-5.1); SODIUM LEVEL 134 MEQ/L (136-145)
[2019-02-16 13:35] LABS: ALBUMIN 3.5 GM/DL (3.2-5.2); BILIRUBIN,TOTAL 0.3 MG/DL (0.2-1.0); CHOLESTEROL LEVEL 258 MG/DL (<200); FREE T4 0.92 NG/DL (0.76-1.46); HDL CHOLESTEROL 67 MG/DL (>40); LDL CHOLESTEROL 143 MG/DL (<100); NON-HDL-C 191 MG/DL; TOTAL PROTEIN 7.4 GM/DL (6.4-8.2); TRIGLYCERIDES LEVEL 240 MG/DL (<150)
[2019-02-16 13:39] LABS: TOTAL 25(OH) VITAMIN D 12.9 NG/ML (30.0-100.0)
[2019-02-16 14:44] LABS: HEMOGLOBIN A1c 7.3 %
== END ==
LOC: M LABNEURO 09:00
PROVIDERS: ATTEND Physician Assistant Medical
DX: E11.9 Type 2 diabetes mellitus without complications (principal); I10 Essential (primary) hypertension; E78.2 Mixed hyperlipidemia; E55.9 Vitamin D deficiency, unspecified; R53.83 Other fatigue

== ENCOUNTER → 2020-04-20 | Outpatient (CLI) | payer MEDICARE, MEDICAID ==
[~2020-04-20] MED LIST changes: -AMLO10TA5 PO; +AMLO1TAB24 PO; +AMLO1TAB25 PO; -AMLO5TAB6 PO; +ASPI-546 PO; -ASPI1TAB15 PO; +CYCL-707 PO; -CYCL10TA PO
[2020-04-20 13:06] LABS: BASO % 0.1 % (0.0-1.0); EOS # 0.1 10^3/uL (0.0-0.5); EOS % 0.8 % (0.0-3.0); HEMATOCRIT 40.3 % (36.0-47.0); HEMOGLOBIN 12.1 g/dl (12.0-15.5); LYMPH # 3.5 10^3/uL (1.5-5.0); LYMPH % 24.3 % (24.0-44.0); MEAN CORPUSCULAR VOLUME 93.3 fl (80.0-96.0); MONO # 0.8 10^3/uL (0.0-0.8); MONO % 5.5 % (0.0-5.0); NEUTROPHILS # 9.9 10^3/uL (1.5-8.5); NEUTROPHILS % 68.7 % (36.0-66.0); PLATELET COUNT, AUTOMATED 469 10^3/uL (150-450); RED BLOOD COUNT 4.32 10^6/uL (4.00-5.40); WHITE BLOOD COUNT 14.4 10^3/uL (4.0-10.0)
[2020-04-20 14:00] LABS: ALBUMIN 3.6 GM/DL (3.2-5.2); ALT/SGPT 27 U/L (12-78); BILIRUBIN,TOTAL 0.3 MG/DL (0.2-1.0); BLOOD UREA NITROGEN 11 MG/DL (7-18); CALCIUM LEVEL 9.2 MG/DL (8.8-10.2); CARBON DIOXIDE LEVEL 39 MEQ/L (21-32); CHLORIDE LEVEL 93 MEQ/L (98-107); CHOLESTEROL LEVEL 162 MG/DL (<200); CHOLESTEROL RISK RATIO 3.056 (<5); CREATININE FOR GFR 0.71 MG/DL (0.55-1.30); FREE T4 1.06 NG/DL (0.76-1.46); GLOMERULAR FILTRATION RATE > 60.0 (>45); GLUCOSE, FASTING 144 MG/DL (70-100); HDL CHOLESTEROL 53 MG/DL (>40); LDL CHOLESTEROL 63 MG/DL (<100); NON-HDL-C 109 MG/DL; POTASSIUM SERUM 4.5 MEQ/L (3.5-5.1); SODIUM LEVEL 136 MEQ/L (136-145); TOTAL PROTEIN 7.3 GM/DL (6.4-8.2); TRIGLYCERIDES LEVEL 230 MG/DL (<150)
[2020-04-20 15:58] LABS: HEMOGLOBIN A1c 7.6 %
== END ==
LOC: M WUC 10:09
PROVIDERS: ATTEND Physician Assistant Medical
DX: R53.83 Other fatigue (principal); I10 Essential (primary) hypertension; E03.9 Hypothyroidism, unspecified; E78.2 Mixed hyperlipidemia; E11.9 Type 2 diabetes mellitus without complications

== ENCOUNTER → 2020-04-20 | Outpatient (CLI) | payer MEDICARE, MEDICAID | LOC: M WUC 10:12 | PROVIDERS: ATTEND Nurse Practitioner Family | DX: E83.42 Hypomagnesemia (principal) ==

== ENCOUNTER → 2020-04-26 | Outpatient (CLI) | payer MEDICARE, MEDICAID ==
--- NOTE | 2020-05-17 16:20 | REP ---
LOW-DOSE LUNG SCREENING CT CLINICAL: Lung screening. TECHNIQUE: Axial noncontrast images from the thoracic inlet to the upper abdomen using lung screening low-dose technique. COMPARISON: 10/23/2016. FINDINGS: Chronic linear fibroatelectatic changes primarily noted in the lingula and right middle lobe are again appreciated along with few scattered small punctate noncalcified nodules/opacities suggesting chronic change. No suspicious consolidation, nodule, or mass lesion is appreciated. No pleural effusion. Tracheobronchial tree is patent. No obvious adenopathy. Atherosclerotic changes to the thoracic aorta and coronary arteries noted. IMPRESSION: * Chronic fibroatelectatic changes involving the right middle lobe and lingula, as well as few scattered chronic punctate opacities measuring up to 2 mm. * No suspicious nodules or mass lesions appreciated. * Lung-RADS Category 2. Management includes annual low-dose surveillance. MTDD
== END ==
LOC: M RAD 13:44
PROVIDERS: ATTEND Internal Medicine Pulmonary Disease
DX: Z12.2 Encounter for screening for malignant neoplasm of respiratory organs (principal); Z87.891 Personal history of nicotine dependence; J84.10 Pulmonary fibrosis, unspecified

== ENCOUNTER → 2020-07-27 | Outpatient (CLI) | payer MEDICARE, MEDICAID ==
[2020-07-27 16:12] LABS: BASO % 0.3 % (0.0-1.0); EOS # 0.1 10^3/uL (0.0-0.5); EOS % 0.8 % (0.0-3.0); HEMATOCRIT 36.6 % (36.0-47.0); HEMOGLOBIN 11.1 g/dl (12.0-15.5); LYMPH # 2.7 10^3/uL (1.5-5.0); LYMPH % 24.8 % (24.0-44.0); MEAN CORPUSCULAR HEMOGLOBIN 26.7 pg (27.0-33.0); MEAN CORPUSCULAR HGB CONC 30.3 g/dl (32.0-36.5); MEAN CORPUSCULAR VOLUME 88.2 fl (80.0-96.0); MONO # 0.6 10^3/uL (0.0-0.8); MONO % 5.8 % (0.0-5.0); NEUTROPHILS # 7.3 10^3/uL (1.5-8.5); NEUTROPHILS % 67.7 % (36.0-66.0); PLATELET COUNT, AUTOMATED 492 10^3/uL (150-450); RED BLOOD COUNT 4.15 10^6/uL (4.00-5.40); WHITE BLOOD COUNT 10.8 10^3/uL (4.0-10.0)
[2020-07-27 16:26] LABS: HEMOGLOBIN A1c 7.7 %
[2020-07-27 16:42] LABS: ALBUMIN 3.3 GM/DL (3.2-5.2); ALT/SGPT 33 U/L (12-78); BILIRUBIN,TOTAL 0.2 MG/DL (0.2-1.0); BLOOD UREA NITROGEN 11 MG/DL (7-18); CALCIUM LEVEL 9.3 MG/DL (8.8-10.2); CARBON DIOXIDE LEVEL 34 MEQ/L (21-32); CHLORIDE LEVEL 91 MEQ/L (98-107); CREATININE FOR GFR 0.78 MG/DL (0.55-1.30); GLOMERULAR FILTRATION RATE > 60.0 (>45); GLUCOSE, FASTING 230 MG/DL (70-100); POTASSIUM SERUM 3.7 MEQ/L (3.5-5.1); SODIUM LEVEL 133 MEQ/L (136-145); TOTAL PROTEIN 7.1 GM/DL (6.4-8.2)
== END ==
LOC: M WUC 13:15
PROVIDERS: ATTEND Physician Assistant Medical
DX: R53.83 Other fatigue (principal); I10 Essential (primary) hypertension; E11.9 Type 2 diabetes mellitus without complications

== ENCOUNTER → 2020-11-21 | Outpatient (CLI) | payer MEDICARE, MEDICAID ==
[2020-11-21 14:49] LABS: BASO % 0.3 % (0.0-1.0); EOS # 0.1 10^3/uL (0.0-0.5); EOS % 0.9 % (0.0-3.0); HEMATOCRIT 35.1 % (36.0-47.0); HEMOGLOBIN 10.8 g/dl (12.0-15.5); LYMPH # 3.2 10^3/uL (1.5-5.0); LYMPH % 27.8 % (24.0-44.0); MEAN CORPUSCULAR HEMOGLOBIN 27.4 pg (27.0-33.0); MEAN CORPUSCULAR HGB CONC 30.8 g/dl (32.0-36.5); MEAN CORPUSCULAR VOLUME 89.1 fl (80.0-96.0); MONO # 0.8 10^3/uL (0.0-0.8); MONO % 7.1 % (2.0-8.0); NEUTROPHILS # 7.3 10^3/uL (1.5-8.5); NEUTROPHILS % 63.5 % (36.0-66.0); PLATELET COUNT, AUTOMATED 664 10^3/uL (150-450); RED BLOOD COUNT 3.94 10^6/uL (4.00-5.40); WHITE BLOOD COUNT 11.5 10^3/uL (4.0-10.0)
[2020-11-21 15:26] LABS: ALBUMIN 3.6 GM/DL (3.2-5.2); ALT/SGPT 48 U/L (12-78); BILIRUBIN,TOTAL 0.2 MG/DL (0.2-1.0); BLOOD UREA NITROGEN 14 MG/DL (7-18); CALCIUM LEVEL 9.6 MG/DL (8.8-10.2); CARBON DIOXIDE LEVEL 33 MEQ/L (21-32); CHLORIDE LEVEL 95 MEQ/L (98-107); CHOLESTEROL LEVEL 217 MG/DL (<200); CREATININE FOR GFR 0.74 MG/DL (0.55-1.30); FREE T4 1.04 NG/DL (0.76-1.46); GLOMERULAR FILTRATION RATE > 60.0 (>45); GLUCOSE, FASTING 164 MG/DL (70-100); HDL CHOLESTEROL 62 MG/DL (>40); LDL CHOLESTEROL 95 MG/DL (<100); NON-HDL-C 155 MG/DL; POTASSIUM SERUM 4.5 MEQ/L (3.5-5.1); SODIUM LEVEL 135 MEQ/L (136-145); TOTAL PROTEIN 7.4 GM/DL (6.4-8.2); TRIGLYCERIDES LEVEL 299 MG/DL (<150)
[2020-11-21 15:28] LABS: HEMOGLOBIN A1c 7.7 %
== END ==
LOC: M WUC 11:19
PROVIDERS: ATTEND Physician Assistant Medical
DX: E03.9 Hypothyroidism, unspecified (principal); I10 Essential (primary) hypertension; E78.2 Mixed hyperlipidemia; E11.9 Type 2 diabetes mellitus without complications; R53.83 Other fatigue

== ENCOUNTER → 2021-04-30 | Outpatient (CLI) | payer MEDICARE, MEDICAID ==
--- NOTE | 2021-04-30 10:58 | REP ---
INDICATION: HX OF NICOTINE DEPENDENCE COMPARISON: 04/26/2020 TECHNIQUE: Axial noncontrast images from the thoracic inlet to the upper abdomen using low-dose lung screening technique (LDCT). FINDINGS: Chronic fibroatelectatic changes at the right middle lobe and lingula along with very few small punctate scattered densities up to 2 mm remain essentially unchanged. There is a new small 3 mm density along the anterior left apex (series 201; image 14). No further acute consolidation, suspicious nodule or mass. No effusion. No pneumothorax. Tracheobronchial tree is patent. Limited evaluation of the mediastinum demonstrates stable significant atherosclerotic changes. IMPRESSION: Lung-RADS category 2. Management recommendations include 12 month low-dose CT follow-up examination. <Electronically signed by Hubert Johnson > 04/30/21 [id number]
== END ==
LOC: M RAD 10:10
PROVIDERS: ATTEND Internal Medicine Pulmonary Disease
DX: Z12.2 Encounter for screening for malignant neoplasm of respiratory organs (principal); Z87.891 Personal history of nicotine dependence

== ENCOUNTER → 2021-05-08 | Outpatient (REF) | payer MEDICARE, MEDICAID | LOC: M LAB REF 17:01 | PROVIDERS: ATTEND Nurse Practitioner Family | DX: E83.42 Hypomagnesemia (principal) ==

== ENCOUNTER → 2022-05-13 | Outpatient (CLI) | payer MEDICARE, MEDICAID ==
[~2022-05-13] MED LIST changes: +ALBU2.5V10 INH; -ALBU83IN INH; +LEVO1TAB39 PO; -LEVO500T3 PO
== END ==
LOC: M RAD 07:34
PROVIDERS: ATTEND Internal Medicine Pulmonary Disease
DX: Z87.891 Personal history of nicotine dependence (principal)

== ENCOUNTER → 2023-12-18 | Outpatient (CLI) | payer MEDICARE, MEDICAID ==
[~2023-12-18] MED LIST changes: +CLOP75TA99 PO; -PLAV1TAB2 PO
[2023-12-18 17:00] LABS: HEMATOCRIT 40.6 % (36.0-47.0); HEMOGLOBIN 12.9 g/dl (12.0-15.5); MEAN CORPUSCULAR HEMOGLOBIN 28.4 pg (27.0-33.0); MEAN CORPUSCULAR HGB CONC 31.8 g/dl (32.0-36.5); MEAN CORPUSCULAR VOLUME 89.2 fl (80.0-96.0); PLATELET COUNT, AUTOMATED 404 10^3/uL (150-450); RED BLOOD COUNT 4.55 10^6/uL (4.00-5.40); WHITE BLOOD COUNT 15.1 10^3/uL (4.0-10.0)
[2023-12-18 17:07] LABS: IRON (FE) 43 UG/DL (50-170); PERCENT SATURATION 12.8 % (13.2-45.0); TOTAL IRON BINDING CAPACITY 336 UG/DL (250-425)
[2023-12-18 17:08] LABS: ALBUMIN 3.6 G/DL (3.2-5.2); ALKALINE PHOSPHATASE 132 U/L (46-116); ALT/SGPT 21 U/L (7.0-40); AST/SGOT 13 U/L (<34); BILIRUBIN,TOTAL 0.4 MG/DL (0.3-1.2); BLOOD UREA NITROGEN 13 MG/DL (9-23); CALCIUM LEVEL 8.9 MG/DL (8.3-10.6); CARBON DIOXIDE LEVEL 31 MMOL/L (20-31); CHLORIDE LEVEL 101 MMOL/L (98-107); CHOLESTEROL LEVEL 134 MG/DL (<200); CHOLESTEROL RISK RATIO 2.56 (<5); CREATININE FOR GFR 0.65 MG/DL (0.55-1.30); GLOMERULAR FILTRATION RATE > 60.0 (>45); GLUCOSE, FASTING 144 MG/DL (74-106); HDL CHOLESTEROL 52.3 MG/DL (>40); LDL CHOLESTEROL 55.3 MG/DL (<100); NON-HDL-C 81.7 MG/DL; POTASSIUM SERUM 4.4 MMOL/L (3.5-5.1); SODIUM LEVEL 140 MMOL/L (136-145); TOTAL PROTEIN 6.8 G/DL (5.7-8.2); TRIGLYCERIDES LEVEL 132 MG/DL (<150)
[2023-12-18 17:09] LABS: FERRITIN 19.8 NG/ML (7.3-270.7); THYROID STIMULATING HORMONE 1.227 uIU/ML (0.55-4.78); TOTAL 25(OH) VITAMIN D 58.7 NG/ML (20.0-100.0)
[2023-12-18 17:10] LABS: FREE T4 1.24 NG/DL (0.89-1.76)
== END ==
LOC: M WUC 11:37
PROVIDERS: ATTEND Nurse Practitioner Adult Health
DX: I10 Essential (primary) hypertension (principal); E78.5 Hyperlipidemia, unspecified; D64.9 Anemia, unspecified; E55.9 Vitamin D deficiency, unspecified; E11.9 Type 2 diabetes mellitus without complications

== ENCOUNTER → 2024-05-23 | Outpatient (CLI) | payer MEDICARE, MEDICAID ==
[2024-05-23 17:36] LABS: HEMATOCRIT 40.9 % (36.0-47.0); HEMOGLOBIN 13.3 g/dl (12.0-15.5); MEAN CORPUSCULAR HEMOGLOBIN 28.9 pg (27.0-33.0); MEAN CORPUSCULAR HGB CONC 32.5 g/dl (32.0-36.5); MEAN CORPUSCULAR VOLUME 88.7 fl (80.0-96.0); PLATELET COUNT, AUTOMATED 377 10^3/uL (150-450); RED BLOOD COUNT 4.61 10^6/uL (4.00-5.40); WHITE BLOOD COUNT 12.7 10^3/uL (4.0-10.0)
[2024-05-23 18:04] LABS: TOTAL IRON BINDING CAPACITY 330 UG/DL (250-425)
[2024-05-23 18:05] LABS: FREE T4 1.55 NG/DL (0.89-1.76)
[2024-05-23 18:06] LABS: FERRITIN 37.2 NG/ML (7.3-270.7); THYROID STIMULATING HORMONE 0.693 uIU/ML (0.55-4.78); TOTAL 25(OH) VITAMIN D 77.9 NG/ML (20.0-100.0)
[2024-05-23 18:07] LABS: ALBUMIN 3.8 G/DL (3.2-5.2); ALKALINE PHOSPHATASE 118 U/L (46-116); ALT/SGPT 21 U/L (7.0-40); AST/SGOT 11 U/L (<34); BILIRUBIN,TOTAL 0.3 MG/DL (0.3-1.2); BLOOD UREA NITROGEN 13 MG/DL (9-23); CALCIUM LEVEL 9.9 MG/DL (8.3-10.6); CARBON DIOXIDE LEVEL 31 MMOL/L (20-31); CHLORIDE LEVEL 99 MMOL/L (98-107); CHOLESTEROL LEVEL 126 MG/DL (<200); CHOLESTEROL RISK RATIO 2.88 (<5); CREATININE FOR GFR 0.73 MG/DL (0.55-1.30); GLOMERULAR FILTRATION RATE > 60.0 (>45); GLUCOSE, FASTING 219 MG/DL (74-106); HDL CHOLESTEROL 43.6 MG/DL (>40); IRON (FE) 57 UG/DL (50-170); NON-HDL-C 82.4 MG/DL; PERCENT SATURATION 17.3 % (13.2-45.0); POTASSIUM SERUM 3.9 MMOL/L (3.5-5.1); SODIUM LEVEL 140 MMOL/L (136-145); TOTAL PROTEIN 7.2 G/DL (5.7-8.2); TRIGLYCERIDES LEVEL 147 MG/DL (<150)
[2024-05-23 18:15] LABS: HEMOGLOBIN A1c 7.2 % (4.0-6.0)
== END ==
LOC: M WUC 11:35
PROVIDERS: ATTEND Nurse Practitioner Adult Health
DX: I10 Essential (primary) hypertension (principal); E78.5 Hyperlipidemia, unspecified; D64.9 Anemia, unspecified; E55.9 Vitamin D deficiency, unspecified; E11.9 Type 2 diabetes mellitus without complications

== ENCOUNTER → 2024-06-22 | Outpatient (CLI) | payer MEDICARE, MEDICAID | LOC: M RAD 12:59 | PROVIDERS: ATTEND Internal Medicine Pulmonary Disease | DX: Z87.891 Personal history of nicotine dependence (principal) ==

== ENCOUNTER → 2024-12-26 | Outpatient (CLI) | payer MEDICARE, MEDICAID ==
[~2024-12-26] MED LIST changes: -ADV100INH INH; +ADVA1AER8 INH
[2024-12-26 14:19] LABS: HEMATOCRIT 40.5 % (36.0-47.0); HEMOGLOBIN 12.9 g/dl (12.0-15.5); MEAN CORPUSCULAR HEMOGLOBIN 29.3 pg (27.0-33.0); MEAN CORPUSCULAR HGB CONC 31.9 g/dl (32.0-36.5); MEAN CORPUSCULAR VOLUME 91.8 fl (80.0-96.0); PLATELET COUNT, AUTOMATED 401 10^3/uL (150-450); RED BLOOD COUNT 4.41 10^6/uL (4.00-5.40); WHITE BLOOD COUNT 11.9 10^3/uL (4.0-10.0)
[2024-12-26 14:36] LABS: HEMOGLOBIN A1c 6.9 % (4.0-6.0)
[2024-12-26 14:51] LABS: FERRITIN 44.8 NG/ML (7.3-270.7); FREE T4 1.4 NG/DL (0.89-1.76)
[2024-12-26 14:52] LABS: THYROID STIMULATING HORMONE 1.101 uIU/ML (0.55-4.78)
[2024-12-26 14:53] LABS: TOTAL 25(OH) VITAMIN D 45.1 NG/ML (20.0-100.0)
[2024-12-26 14:54] LABS: ALBUMIN 3.9 G/DL (3.2-5.2); BILIRUBIN,TOTAL 0.3 MG/DL (0.3-1.2); CALCIUM LEVEL 9.4 MG/DL (8.3-10.6); CHOLESTEROL RISK RATIO 2.63 (<5); CREATININE FOR GFR 0.77 MG/DL (0.55-1.30); GLOMERULAR FILTRATION RATE 82.9 (>39); HDL CHOLESTEROL 65.3 MG/DL (>40); LDL CHOLESTEROL 65.9 MG/DL (<100); NON-HDL-C 106.7 MG/DL; PERCENT SATURATION 17.7 % (13.2-45.0); TOTAL PROTEIN 7.3 G/DL (5.7-8.2)
== END ==
LOC: M WUC 11:55
DX: E11.9 Type 2 diabetes mellitus without complications (principal); J44.9 Chronic obstructive pulmonary disease, unspecified; I10 Essential (primary) hypertension; E78.5 Hyperlipidemia, unspecified; E03.9 Hypothyroidism, unspecified; D64.9 Anemia, unspecified

== ENCOUNTER → 2025-08-03 | Outpatient (CLI) | payer MEDICARE, MEDICAID | LOC: M RAD 15:22 | PROVIDERS: ATTEND Internal Medicine Pulmonary Disease | DX: Z12.2 Encounter for screening for malignant neoplasm of respiratory organs (principal); Z87.891 Personal history of nicotine dependence; R63.4 Abnormal weight loss ==